=== PATIENT | female | born 1960 | race Caucasian/White ===

== ENCOUNTER 2017-06-18 11:09 | Emergency (ER) | payer OTHER ==
[2017-06-18] MEDS ORDERED: CEFTRIAXONE 1 GM/D5W RTU 1 GM/50 ML RTUPB IV ONE (12:20)
--- NOTE | 2017-06-18 12:21 | ER Document Report ---
HPI - HPI Patient complains to provider of: Wound recheck Onset: Other - 3 days Onset/Duration: Worse Quality of pain: Achy Pain Level: 1 Context: Patient states that she had a mole and tumor removed last week at the [facility] in [place]. Patient states that she has had drainage from the wound and that 1 of the sutures popped. Patient states she has transportation issues and is not able to go back to see the surgeon who performed the procedure. Patient is not currently taking any antibiotics. Patient is still waiting the pathology results after having her procedure. Associated Symptoms: Other - Wound drainage. denies: Fever Exacerbated by: Movement Relieved by: Denies Similar symptoms previously: No Recently seen / treated by doctor: Yes - ROS ROS below otherwise negative: Yes Systems Reviewed and Negative: Yes All other systems reviewed and negative - CONSTITUTIONAL Constitutional: DENIES: Fever - REPRODUCTIVE Reproductive: DENIES: : - DERM Skin Problems: Surgical Wound Past Medical History - General Information source: Patient - Social History Smoking Status: Current Every Day Smoker Chew tobacco use (# tins/day): No Frequency of alcohol use: None Drug Abuse: None Occupation: [employer] Family History: Reviewed & Not Pertinent Patient has suicidal ideation: No Patient has homicidal ideation: No Endocrine Medical History: Reports: Hx Hypothyroidism Renal/ Medical History: Denies: Hx Peritoneal Dialysis Musculoskeltal Medical History: Reports Hx Arthritis Past Surgical History: Reports: Hx Orthopedic Surgery Vertical Provider Document - CONSTITUTIONAL Agree With Documented VS: Yes Exam Limitations: No Limitations General Appearance: WD/WN, No Apparent Distress - INFECTION CONTROL TRAVEL OUTSIDE OF THE [place] IN LAST 30 DAYS: No - HEENT HEENT: Atraumatic, Normocephalic - NECK Neck: Normal Inspection - RESPIRATORY Respiratory: Breath Sounds Normal, No Respiratory Distress O2 Sat by Pulse Oximetry: 98 - CARDIOVASCULAR Cardiovascular: Regular Rate, Regular Rhythm, No Murmur - BACK Back: Abnormal Inspection - Erythema surrounding surgical wound to left flank area - MUSCULOSKELETAL/EXTREMETIES Musculoskeletal/Extremeties: MAEW - NEURO Level of Consciousness: Awake, Alert, Appropriate Motor/Sensory: No Motor Deficit - DERM Integumentary: Warm, Dry Notes: Patient with mild erythema surrounding surgical wound to left flank area. Patient with a running suture that is not completely intact. Patient with purulent drainage draining from wound. Course - Re-evaluation Re-evalutation: 06/18/17 12:[address] Spence, Dr. Spence to bedside for exam. Recommends consultation with patient's surgeon 06/18/17 13:12 Attempted extensively to contact patient's surgeon at the [facility] without success, called and spoke with the local [place] clinic Dr. Christensen who states that she will forward my phone number to the patient's surgeon so that they will call back. 06/18/17 14:07 Was not able to make contact with patient's surgeon, consulted with Dr. Gee who does agree to evaluate patient in the ER. 06/18/17 14:27 Dr. Gee evaluated patient and removed her sutures. Recommends placing patient on pain medication in addition to Bactrim. Will see patient in the office tomorrow for wound recheck and then have her follow-up in the office the following week for additional follow-up. 06/18/17 15:20 Patient's surgeon from the [facility] called, discussed patient's plan of care and physical exam findings. No additional recommendations advised at this time - Vital Signs Vital signs: Temp Pulse Resp BP Pulse Ox 97.6 F 80 16 162/97 H 98 06/18/17 11:18 06/18/17 11:18 06/18/17 11:18 06/18/17 11:18 06/18/17 11:18 - Laboratory Result Diagrams: 06/18/17 12:55 06/18/17 12:55 Laboratory results interpreted by me: 06/18/17 18:43 Labs- Entire Visit 06/18/17 06/18/17 12:55 12:55 WBC 9.4 RBC 4.66 Hgb 12.6 Hct 37.5 MCV 81 MCH 27.0 MCHC 33.5 RDW 14.0 Plt Count 594 H Seg Neutrophils % 73.7 Lymphocytes % 16.6 Monocytes % 6.6 Eosinophils % 2.6 Basophils % 0.5 Absolute Neutrophils 6.9 Absolute Lymphocytes 1.6 Absolute Monocytes 0.6 Absolute Eosinophils 0.2 Absolute Basophils 0.1 Sodium 140.0 Potassium 4.1 Chloride 105 Carbon Dioxide 24 Anion Gap 11 BUN 12 Creatinine 0.65 Est GFR ( Amer) > 60 Est GFR (Non-Af Amer) > 60 Glucose 102 Calcium 9.5 Total Bilirubin 0.4 Direct Bilirubin 0.2 Neonat Total Bilirubin Not Reportable Neonat Direct Bilirubin Not Reportable Neonat Indirect Bili Not Reportable AST 18 ALT 32 Alkaline Phosphatase 134 H Total Protein 7.0 Albumin 3.9 Discharge - Discharge Clinical Impression: Wound, surgical, infected Qualifiers: Encounter type: initial encounter Qualified Code(s): T81.4XXA - Infection following a procedure, initial encounter Condition: Stable Disposition: HOME, SELF-CARE Instructions: Oral Narcotic Medication ([facility]), Trimethoprim-Sulfa ([facility]), Wound Infection ([facility]) Additional Instructions: Return immediately for any new or worsening symptoms Followup with your primary care provider, call tomorrow to make a followup appointment Follow-up with the surgical clinic tomorrow for a dressing change Follow-up with the surgical clinic next week for recheck Perform daily wet-to-dry dressings Prescriptions: Oxycodone HCl/Acetaminophen [Percocet 5-325 mg Tablet] 1 tab PO ASDIR PRN #15 tablet PRN Reason: Sulfamethoxazole/Trimethoprim [Bactrim Ds Tablet] 1 each PO BID #20 tablet Referrals: ALIDA GEE MD [ACTIVE STAFF] - Follow up tomorrow
[2017-06-18] MEDS ORDERED: CEFTRIAXONE INJ 1000 MG VIAL IV ONE (12:42)
[2017-06-18 13:06] LABS: ABSOLUTE BASOPHILS # (AUTO) 0.1 10^3/uL (0.0-0.2); ABSOLUTE EOSINOPHILS # (AUTO) 0.2 10^3/uL (0.0-0.6); ABSOLUTE LYMPHOCYTES (AUTO) 1.6 10^3/uL (0.5-4.7); ABSOLUTE MONOCYTES (AUTO) 0.6 10^3/uL (0.1-1.4); ABSOLUTE NEUT (AUTO) 6.9 10^3/uL (1.7-8.2); BASOPHILS % (AUTO) 0.5 % (0-2); EOSINOPHILS % (AUTO) 2.6 % (0-6); HEMATOCRIT 37.5 % (36.0-47.0); HEMOGLOBIN 12.6 g/dL (12.0-15.5); LYMPHOCYTES % (AUTO) 16.6 % (13-45); MEAN CORPUSCULAR HGB CONC 33.5 g/dL (32.0-36.0); MEAN CORPUSCULAR VOLUME 81 fl (80-97); MONOCYTES % (AUTO) 6.6 % (3-13); PLATELET COUNT 594 10^3/uL (150-450); RED BLOOD COUNT 4.66 10^6/uL (3.72-5.28); SEGMENTED NEUTROPHILS % (AUTO) 73.7 % (42-78); TOTAL CELLS COUNTED % (AUTO) 100 %; WHITE BLOOD COUNT 9.4 10^3/uL (4.0-10.5)
[2017-06-18 13:29] LABS: ALANINE AMINOTRANSFERASE 32 U/L (9-52); ALBUMIN 3.9 g/dL (3.5-5.0); ALKALINE PHOSPHATASE 134 U/L (38-126); ANION GAP 11 (5-19); ASPARTATE AMINO TRANSFERASE 18 U/L (14-36); BILIRUBIN,DIRECT 0.2 mg/dL (0.0-0.4); BILIRUBIN,TOTAL 0.4 mg/dL (0.2-1.3); BLOOD UREA NITROGEN 12 mg/dL (7-20); CALCIUM 9.5 mg/dL (8.4-10.2); CARBON DIOXIDE 24 mmol/L (22-30); CHLORIDE 105 mmol/L (98-107); GLUCOSE 102 mg/dL (75-110); POTASSIUM 4.1 mmol/L (3.6-5.0)
[2017-06-18] MEDS ORDERED: SULFAMETHOXAZOLE/TRIMETHOPRIM 800-160 MG TABLET PO ONE (14:29)
[2017-06-18 14:40] VITALS: BP 150/90
--- NOTE | 2017-06-18 17:08 | PDOC CONSULTATION ---
Consultation Consult Date: 06/18/17 Consult reason:: Evaluate left flank wound History of Present Illness Patient complains of: Left flank pain and drainage History of Present Illness: MELI MCQUEEN is a 57 year old female who underwent a wide local excision of a suspicious skin lesion on her left flank chest over a week ago. Patient noticed several days later with increasing pain and redness and purulent drainage. With the persistence of her symptoms and worsening of her pain she was seen at an outpatient clinic and subsequently referred to the ER. She has not seen her surgeon since the surgery. The surgery was done in [place]. The final diagnoses is still not known to her. Nor known to the [place] doctor who saw her today. She denies any fever and denies any history of diabetes. No history of MRSA Past Surgical History Past Surgical History: Reports: Orthopedic Surgery Social History Smoking Status: Current Every Day Smoker Family History Family History: Reviewed & Not Pertinent Parental Family History Reviewed: No Children Family History Reviewed: No Sibling(s) Family History Reviewed.: No Medication/Allergy Home Medications: Prednisone [Deltasone 10 mg Tablet] 10 mg PO ASDIR PRN #21 tablet 04/11/14 Prednisone [Deltasone 20 mg Tablet] 3 tab PO DAILY 5 Days tablet 02/08/15 Oxycodone HCl/Acetaminophen [Percocet 5-325 mg Tablet] 1 tab PO ASDIR PRN #15 tablet 06/18/17 Sulfamethoxazole/Trimethoprim [Bactrim Ds Tablet] 1 each PO BID #20 tablet 06/18 Allergies/Adverse Reactions: No Known Allergies Allergy (Verified 06/18/17 12:11) Physical Exam Vital Signs: Temp Pulse Resp BP Pulse Ox 98 F 82 18 150/90 H 98 06/18/17 14:30 06/18/17 14:30 06/18/17 14:30 06/18/17 14:30 06/18/17 14:44 Intake & Output 06/17/17 06/18/17 06/19/17 06:59 06:59 06:59 Weight 112.4 kg General appearance: PRESENT: no acute distress, cooperative Eye exam: PRESENT: conjunctiva pink Neck exam: PRESENT: other - Supple with no tenderness Respiratory exam: PRESENT: clear to auscultation birsa Cardiovascular exam: PRESENT: RRR GI/Abdominal exam: PRESENT: other - Soft nondistended nontender to palpation. Neurological exam: PRESENT: alert, awake Psychiatric exam: PRESENT: appropriate affect Skin exam: PRESENT: other - Left flank with a approximately a centimeter wound that has dehisced with about 1-2 cm of surrounding erythema with purulent drainage. Sutures are present but the wound has dehisced almost 100%. Results Laboratory Results: 06/18/17 12:55 06/18/17 12:55 06/18/17 06/18/17 12:55 12:55 WBC 9.4 RBC 4.66 Hgb 12.6 Hct 37.5 MCV 81 MCH 27.0 MCHC 33.5 RDW 14.0 Plt Count 594 H Seg Neutrophils % 73.7 Lymphocytes % 16.6 Monocytes % 6.6 Eosinophils % 2.6 Basophils % 0.5 Absolute Neutrophils 6.9 Absolute Lymphocytes 1.6 Absolute Monocytes 0.6 Absolute Eosinophils 0.2 Absolute Basophils 0.1 Sodium 140.0 Potassium 4.1 Chloride 105 Carbon Dioxide 24 Anion Gap 11 BUN 12 Creatinine 0.65 Est GFR ( Amer) > 60 Est GFR (Non-Af Amer) > 60 Glucose 102 Calcium 9.5 Total Bilirubin 0.4 AST 18 ALT 32 Alkaline Phosphatase 134 H Total Protein 7.0 Albumin 3.9 Assessment & Plan - Diagnosis (1) Wound, surgical, infected Qualifiers: Encounter type: initial encounter Qualified Code(s): T81.4XXA - Infection following a procedure, initial encounter Is this a current diagnosis for this admission?: Yes Plan: The sutures were removed and the wound was gently pried completely open digitally allowing drainage of pus. Loculations were broken up digitally. And the wound was packed with a wet-to-dry gauze. I think she can be managed as an outpatient. She does not appear septic. She has a wound infection. Allowing adequate drainage is the first big step in her recovery. I will place her on Septra. Will have her follow-up at my office for a nurse visit to educate her more on the dressing change. She will follow-up at our office next week to check up on her progress and check up on her cultures as well. She will need follow-up with her surgeon eventually whenever that surgeon is available. [facility]. If she has any worsening redness or fever or worsening symptoms she is to return immediately.
== END 2017-06-18 14:50 | disposition home or self-care (01) ==
LOC: ER 11:09
DX: T81.4XXA Infection following a procedure, initial encounter (principal); Y83.8 Other surgical procedures as the cause of abnormal reaction of the patient, or of later complication, without mention of misadventure at the time of the procedure; Z48.02 Encounter for removal of sutures
CPT/HCPCS: 99284; 96365; 36415; 87040; 87070; 87205; 85025; 87075; 87077; 80053; 87186; J0696

== ENCOUNTER → 2017-07-07 | Outpatient (CLI) | payer OTHER ==
--- NOTE | 2017-07-09 09:07 | RADIOLOGY REPORT (SQ) ---
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 TECHNIQUE: Blood glucose level was verified. Above dose of FDG was injected intravenously. 2-D seg mented attenuation correction images were obtained through the entire body. Noncontrast CT images we re obtained for attenuation correction and fusion with emission images. CT images were performed wit hout oral or intravenous contrast and are not sensitive for parenchymal lesions. A series of overlap ping emission PET images were obtained. Images reviewed and manipulated at independent work station by the radiologist. Images stored on PACS. LIMITATIONS: None. FINDINGS: HEAD AND NECK: A non enlarged right pharyngeal tonsil with SUV of 6.2 is present. There i s calcification in the tonsil, question chronic inflammation. CHEST: No abnormal increased metabolic activity over the chest ABDOMEN AND PELVIS: Over the left flank skin, a 3.3 x 1 cm area of skin thickening is present on axia l image 134. This has SUV of 2.2. There is diffuse increased uptake throughout the pancreas, with a 4.6 x 2.6 cm area of pancreatic yoselin l enlargement on axial image 40 with SUV of 6.0. Findings likely represent chronic pancreatitis. Kn own malignant mass of the pancreas tail could not entirely be excluded A 10 cm long segment of distal sigmoid colon with diverticuli has SUV of 10.6. This likely represent s diverticulitis. No abscess identified. LOWER EXTREMITIES: No areas of abnormal metabolic activity in the soft tissues of the lower extremiti es. BONES: There is diffuse bone marrow activity with SUV of 3 to 4, throughout the thoracic spine, lumba r spine and bony pelvis. ADDITIONAL CT FINDINGS: Calcified gallstones OTHER: Liver SUV 2.2. Blood pool SUV 2.2. IMPRESSION: Left flank skin activity in the area of wound healing with SUV of 2.2. Increased uptake in a nonenlarged right pharyngeal tonsil with calcifications. This may represent ch ronic inflammation. Malignancy could not entirely be excluded Diffuse pancreatic activity with focal increased uptake at the pancreatic tail, likely from chronic p ancreatitis. Malignancy could not entirely be excluded Distal sigmoid colon activity in an area with multiple diverticuli likely from diverticulitis. Debbi frazier could not entirely be excluded. TECHNICAL DOCUMENTATION: JOB ID: [id number] [employer]- All Rights Reserved Reading location - IP/workstation name: [email or web address]
== END ==
LOC: RAD 20:00
PROVIDERS: ATTEND Internal Medicine
DX: C43.59 Malignant melanoma of other part of trunk (principal)
CPT/HCPCS: 78816; A9552

== ENCOUNTER → 2017-11-10 | Outpatient (CLI) | payer OTHER ==
--- NOTE | 2017-11-11 08:40 | RADIOLOGY REPORT (SQ) ---
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 RADIONUCLIDE AND DOSE: 10.0 mCi F18 FDG The route of agent administration: Intravenous FASTING BLOOD SUGAR: 96 mg/dl CONTRAST TYPE AND DOSE: No CT contrast given. TECHNIQUE: Blood glucose level was verified. Above dose of FDG was injected intravenously. 2-D seg mented attenuation correction images were obtained through the entire body. Noncontrast CT images we re obtained for attenuation correction and fusion with emission images. CT images were performed wit hout oral or intravenous contrast and are not sensitive for parenchymal lesions. A series of overlap ping emission PET images were obtained. Images reviewed and manipulated at independent work station by the radiologist. Images stored on PACS. LIMITATIONS: None. FINDINGS: HEAD AND NECK: Again seen is a hypermetabolic right pharyngeal lymph node with a few coars e calcifications. This measures 10 mm with mean SUV 9.13. Prior value 6.2. No other areas of abnor mal metabolic activity in the soft tissues of the head and neck. CHEST: There is a 2 cm hypermetabolic lymph node in the left axilla. There is a central biopsy clip. Mean SUV 8.71. No other significant axillary adenopathy. Previously seen activity involving the s urgical site in the skin of the left flank has resolved. No other areas of abnormal metabolic activi ty in the chest. ABDOMEN AND PELVIS: Previously seen increased uptake in the pancreas has now resolved. Again seen is prominent increased activity in the sigmoid colon with mean SUV value 19.09. Previous value 10.6. No other areas of abnormal metabolic activity in the abdomen or pelvis. Expected physiologic activit y is present in the genitourinary system and bowel. LOWER EXTREMITIES: No areas of abnormal metabolic activity in the soft tissues of the lower extremiti es. BONES: Again seen is diffuse increased bone marrow activity throughout the spine as well is in the [place] pelvis, proximal right and left humerus, and proximal right and left femur. Mean SUV values range from roughly 3.[address] FINDINGS: Gallstones. No additional significant findings on the noncontrast CT images. OTHER: No other significant findings. Background blood pool activity mean SUV 2.31. Background live r activity mean SUV 2.5. IMPRESSION: 1. NEW HYPERMETABOLIC LEFT AXILLARY LYMPH NODE WITH ASSOCIATED BIOPSY CLIP, CONSISTENT WITH METASTASI S. NO OTHER SIGNIFICANT AXILLARY ADENOPATHY. PREVIOUSLY SEEN ACTIVITY AT THE SURGICAL SITE IN THE L EFT FLANK HAS RESOLVED. 2. AGAIN SEEN IS INCREASED UPTAKE IN THE RIGHT PHARYNGEAL TONSIL WITH A FEW ASSOCIATED COARSE CALCIFI CATIONS. THIS COULD BE DUE TO INFLAMMATORY PROCESS. MALIGNANCY CANNOT BE EXCLUDED BASED ON THESE FI NDINGS. 3. MARKEDLY INCREASED ACTIVITY IN THE SIGMOID COLON IS AGAIN PRESENT. NO ASSOCIATED FINDINGS ON NONC ONTRAST CT IMAGES. THIS COULD BE DUE TO CHRONIC INFLAMMATION. MALIGNANCY CANNOT BE EXCLUDED BASED O N THESE FINDINGS. UNCLEAR FROM THE PROVIDED CLINIC NOTES IF THE PATIENT HAS HAD RECENT COLONOSCOPY. 4. PREVIOUSLY SEEN INCREASED ACTIVITY IN THE PANCREAS HAS RESOLVED. 5. AGAIN SEEN IS DIFFUSE INCREASED BONE MARROW ACTIVITY THROUGHOUT THE CENTRAL SKELETON DESCRIBED. NO ASSOCIATED FINDINGS ON CT IMAGES. THIS COULD REPRESENT ACTIVE RED MARROW. TECHNICAL DOCUMENTATION: JOB ID: [id number] [employer]- All Rights Reserved Reading location - IP/workstation name: [email or web address]
== END ==
LOC: RAD 16:01
PROVIDERS: ATTEND Internal Medicine
DX: C43.59 Malignant melanoma of other part of trunk (principal); C77.3 Secondary and unspecified malignant neoplasm of axilla and upper limb lymph nodes
CPT/HCPCS: 78816; A9552

== ENCOUNTER 2017-12-23 14:16 | Emergency (ER) | payer OTHER ==
[2017-12-23] MEDS ORDERED: ONDANSETRON 4 MG TAB.RAPDIS PO ONE (15:09)
--- NOTE | 2017-12-23 15:11 | ER Document Report ---
ED Medical Screen (RME) - General Chief Complaint: Vomiting Stated Complaint: VOMITING Time Seen by Provider: 12/23/17 15:05 Mode of Arrival: Ambulatory Information source: Patient Notes: 57 yo hypothyroid, anemia, ulcerative colitis, carpel tunnel syndrome female with vomiting since thursday associated with nausea. "I'm so thirsty", neighbor brought her. Always has loose stool due to colitis- always has blood and mucous in stool. Pain in low abdomen for this week. no fever or chills. TRAVEL OUTSIDE OF THE [place] IN LAST 30 DAYS: No - Related Data Allergies/Adverse Reactions: No Known Allergies Allergy (Verified 12/23/17 14:17) Past Medical History Endocrine Medical History: Reports: Hx Hypothyroidism Renal/ Medical History: Denies: Hx Peritoneal Dialysis Musculoskeltal Medical History: Reports Hx Arthritis Past Surgical History: Reports: Hx Orthopedic Surgery Physical Exam - Vital signs Vitals: Temp Pulse Resp BP Pulse Ox 97.4 F 118 H 22 H 115/76 99 12/23/17 14:28 12/23/17 14:28 12/23/17 14:28 12/23/17 14:28 12/23/17 14:28 Course - Vital Signs Vital signs: Temp Pulse Resp BP Pulse Ox 97.4 F 118 H 22 H 115/76 99 12/23/17 14:28 12/23/17 14:28 12/23/17 14:28 12/23/17 14:28 12/23/17 14:28 Doctor's Discharge - Discharge Referrals: CLAUDETTE ZEE MD [Primary Care Provider] - Follow up as needed
[2017-12-23] MEDS ORDERED: RINGERS SOLUTION,LACTATED 2,000 ML IV PRN (15:12)
[2017-12-23 15:53] LABS: ABSOLUTE BASOPHILS # (AUTO) 0.1 10^3/uL (0.0-0.2); ABSOLUTE EOSINOPHILS # (AUTO) 0.7 10^3/uL (0.0-0.6); ABSOLUTE LYMPHOCYTES (AUTO) 2.3 10^3/uL (0.5-4.7); ABSOLUTE MONOCYTES (AUTO) 1.7 10^3/uL (0.1-1.4); ABSOLUTE NEUT (AUTO) 11.5 10^3/uL (1.7-8.2); BASOPHILS % (AUTO) 0.4 % (0-2); EOSINOPHILS % (AUTO) 4.1 % (0-6); HEMATOCRIT 32.2 % (36.0-47.0); HEMOGLOBIN 10.6 g/dL (12.0-15.5); LYMPHOCYTES % (AUTO) 13.9 % (13-45); MEAN CORPUSCULAR HEMOGLOBIN 24.4 pg (27.0-33.4); MEAN CORPUSCULAR HGB CONC 32.9 g/dL (32.0-36.0); MEAN CORPUSCULAR VOLUME 74 fl (80-97); MONOCYTES % (AUTO) 10.4 % (3-13); PLATELET COUNT 990 10^3/uL (150-450); RED BLOOD COUNT 4.33 10^6/uL (3.72-5.28); RED CELL DISTRIBUTION WIDTH 16.9 % (11.5-14.0); SEGMENTED NEUTROPHILS % (AUTO) 71.2 % (42-78); TOTAL CELLS COUNTED % (AUTO) 100 %; WHITE BLOOD COUNT 16.2 10^3/uL (4.0-10.5)
[2017-12-23 16:03] LABS: AMORPHOUS SEDIMENT,URINE TRACE /HPF; APPEARANCE,URINE CLOUDY; BILIRUBIN,URINE NEGATIVE (NEGATIVE); COLOR,URINE YELLOW; GLUCOSE, URINE NEGATIVE (NEGATIVE); KETONES,URINE 20 mg/dL (NEGATIVE); LEUKOCYTE ESTERASE,URINE TRACE (NEGATIVE); NITRITE,URINE NEGATIVE (NEGATIVE); PROTEIN,URINE 30 mg/dL (NEGATIVE); URINE SPECIFIC GRAVITY 1.019; UROBILINOGEN,URINE NEGATIVE mg/dL (<2.0)
[2017-12-23 16:07] LABS: ALANINE AMINOTRANSFERASE 18 U/L (9-52); ALBUMIN 3.1 g/dL (3.5-5.0); ALKALINE PHOSPHATASE 103 U/L (38-126); ANION GAP 12 (5-19); ASPARTATE AMINO TRANSFERASE 13 U/L (14-36); BILIRUBIN,DIRECT 0.3 mg/dL (0.0-0.4); BILIRUBIN,TOTAL 0.3 mg/dL (0.2-1.3); BLOOD UREA NITROGEN 13 mg/dL (7-20); CALCIUM 8.9 mg/dL (8.4-10.2); CARBON DIOXIDE 22 mmol/L (22-30); CHLORIDE 104 mmol/L (98-107); GLUCOSE 136 mg/dL (75-110); LIPASE 222.4 U/L (23-300); TOTAL PROTEIN 6.4 g/dL (6.3-8.2)
[2017-12-23 16:08] LABS: URINE AMPHETAMINES SCREEN NEGATIVE; URINE BARBITURATES SCREEN NEGATIVE; URINE BENZODIAZEPINES SCREEN NEGATIVE; URINE COCAINE SCREEN NEGATIVE; URINE MARIJUANA (THC) SCREEN NEGATIVE; URINE METHADONE SCREEN NEGATIVE; URINE PHENCYCLIDINE SCREEN NEGATIVE
--- NOTE | 2017-12-23 16:19 | ER Document Report ---
ED General - General Chief Complaint: Vomiting Stated Complaint: VOMITING Time Seen by Provider: 12/23/17 15:05 Mode of Arrival: Ambulatory TRAVEL OUTSIDE OF THE [place] IN LAST 30 DAYS: No - HPI Notes: Patient is a 57-year-old female with a history of colitis, chronic recurrent abdominal pain, melanoma, chronic bloody/mucousy diarrhea, anemia, hypothyroidism who presents to the ED complaining of nausea, vomiting, abdominal cramping over the last 3 days. Patient states that she has noticed more soreness and pain to the left lower abdomen and occasionally to the right upper abdomen. Patient states that she believes most of her abdominal pain is soreness from vomiting. Patient states that she has had these pains before. She has not been able to eat or drink because of the nausea and vomiting. She is urinating normally. She has not noticed any vaginal discharge, odor, or bleeding. Patient states that she is not currently being treated for her melanoma nor her colitis and she is concerned about side effects of medicines. - Related Data Allergies/Adverse Reactions: No Known Allergies Allergy (Verified 12/23/17 14:17) Past Medical History - General Information source: Patient - Social History Smoking Status: Unknown if Ever Smoked Family History: Reviewed & Not Pertinent Patient has suicidal ideation: No Patient has homicidal ideation: No Endocrine Medical History: Reports: Hx Hypothyroidism Renal/ Medical History: Denies: Hx Peritoneal Dialysis Musculoskeletal Medical History: Reports Hx Arthritis Past Surgical History: Reports: Hx Orthopedic Surgery Review of Systems - Review of Systems -: Yes All other systems reviewed and negative Physical Exam - Vital signs Vitals: Temp Pulse Resp BP Pulse Ox 97.4 F 118 H 22 H 115/76 99 12/23/17 14:28 12/23/17 14:28 12/23/17 14:28 12/23/17 14:28 12/23/17 14:28 - Notes Notes: PHYSICAL EXAMINATION: GENERAL: Well-appearing, well-nourished and in no acute distress. Vitals: HR 90 during exam HEAD: Atraumatic, normocephalic. EYES: Pupils equal round and reactive to light, extraocular movements intact, sclera anicteric, conjunctiva are normal. ENT: Nares patent and without discharge. oropharynx clear without exudates. No tonsilar hypertrophy or erythema. Moist mucous membranes. NECK: Normal range of motion, supple without lymphadenopathy LUNGS: Breath sounds clear to auscultation bilaterally and equal. No wheezes rales or rhonchi. HEART: Regular rate and rhythm without murmurs, rubs, gallops. ABDOMEN: Soft, nondistended abdomen. No guarding, no rebound. No masses appreciated. Normal bowel sounds present. No CVA tenderness bilaterally. + mild generalized tenderness. No tenderness at mcburney. mondragon neg. Musculoskeletal: FROM to passive/active. Strength 5+/5. Extremities: No cyanosis, clubbing, or edema b/l. Peripheral pulses 2+. Capillary refill less than 3 seconds. NEUROLOGICAL: Normal speech, normal gait. PSYCH: Normal mood, normal affect. SKIN: Warm, Dry, normal turgor, no rashes or lesions noted. Course - Re-evaluation Re-evalutation: 12/23/17 17:48 Patient is an afebrile, well-hydrated, 57-year-old female who presents to the ED with abdominal pain, suspect acute exacerbation of her colitis. Vitals are acceptable without any significant tachycardia, tachypnea, or hypoxia. PE is otherwise unremarkable. Patient's abdomen is currently soft and nontender. Patient has been given Zofran, fluids, as well as Reglan. Patient is tolerating p.o. without any difficulties at this time and is nontoxic- appearing. She has not had any episodes of emesis throughout her stay. CBC does show an elevated white count with left shift as well as thrombocytosis which she has had before. I suspect that the elevated white blood cell count could be due to her vomiting and/or infection. CMP showed hypokalemia which was supplemented with potassium chloride. Lipase was unremarkable. Urinalysis was grossly unremarkable, urine culture is pending. CT of the abdomen was unremarkable. No further labs or imaging warranted at this time based on H&P. Low suspicion/risk for acute appendicitis, bowel obstruction, acute cholecystitis, acute cholangitis, perforated diverticulitis, incarcerated hernia , pancreatitis, perforated ulcer, peritonitis, sepsis, or other systemic emergent condition at this time. Patient is aware that her condition can change from initial presentation and she needs to monitor symptoms closely and seek medical attention if any acute changes. Rx for cipro/flagyl/potassium chloride/zofran. Conservative measures otherwise for symptoms. Recheck with PCM/GI in 5-7 days. Return to the ED with any worsening/concerning symptoms otherwise as reviewed in discharge. Patient is in agreement. Case reviewed with Dr. Irene who is in agreement with dispo/plan. - Vital Signs Vital signs: Temp Pulse Resp BP Pulse Ox 97.4 F 118 H 22 H 115/76 99 12/23/17 14:28 12/23/17 14:28 12/23/17 14:28 12/23/17 14:28 12/23/17 14:28 - Laboratory Result Diagrams: 12/23/17 15:25 12/23/17 15:25 Laboratory results interpreted by me: 12/23/17 12/23/17 12/23/17 15:25 15:25 15:25 WBC 16.2 H Hgb 10.6 L Hct 32.2 L MCV 74 L MCH 24.4 L RDW 16.9 H Plt Count 990 H Absolute Neutrophils 11.5 H Absolute Monocytes 1.7 H Absolute Eosinophils 0.7 H Potassium 3.0 L* Est GFR (Non-Af Amer) 58 L Glucose 136 H AST 13 L Albumin 3.1 L Urine Protein 30 H Urine Ketones 20 H Ur Leukocyte Esterase TRACE H Discharge - Discharge Clinical Impression: Colitis, Hypokalemia Abdominal pain Qualifiers: Abdominal location: generalized Qualified Code(s): R10.84 - Generalized abdominal pain Condition: Stable Disposition: HOME, SELF-CARE Instructions: Abdominal Pain ([facility]), Antinausea Medication ([facility]) Additional Instructions: Maintain adequate fluid and food intake [place] diet ([employer] Bananas, rice, apples, toast, etc Zofran as needed tylenol if needed Monitor for any worsening symptoms Make sure you are staying hydrated enough to urinate and have normal BM's Recheck with your PCM/Gastroenterology in 5-7 days* Return to the ED with any worsening symptoms and/or development of fever, headache, chest pain, palpitations, syncope, shortness of breath, trouble breathing, abdominal pain, n/v/d, blood in stool/urine, weakness, or other worsening symptoms that are concerning to you. Prescriptions: Ciprofloxacin HCl [Cipro 500 mg Tablet] 500 mg PO BID #20 tablet Metronidazole [Flagyl] 500 mg PO TID #21 tablet Potassium Chloride 10 meq PO DAILY #5 tablet.er Promethazine HCl [Phenergan 25 mg Tablet] 25 mg PO BID PRN #8 tablet PRN Reason: Referrals: CLAUDETTE ZEE MD [Primary Care Provider] - Follow up as needed
[2017-12-23] MEDS ORDERED: METOCLOPRAMIDE HCL INJ/PF 10 MG/2 ML SDV IV ONE (17:15)
--- NOTE | 2017-12-23 17:24 | RADIOLOGY REPORT (SQ) ---
EXAM DESCRIPTION: CT ABD/PELVIS WITH IV ONLY COMPLETED DATE/TIME: 12/23/2017 5:10 pm REASON FOR STUDY: abd pain, h/o colitis COMPARISON: None. TECHNIQUE: CT scan of the abdomen and pelvis performed using helical scanning technique with dynamic intravenous contrast injection. No oral contrast. Images reviewed with lung, soft tissue, and bone windows. Reconstructed coronal and sagittal MPR images reviewed. Delayed images for evaluation of the urinary system also acquired. All images stored on PACS. All CT scanners at this facility use dose modulation, iterative reconstruction, and/or weight based d osing when appropriate to reduce radiation dose to as low as reasonably achievable (ALARA). [facility]: Dose Right [facility]: CareDose [facility]: Dose Right [facility]: Teradose 4D [facility]: EverTrue CONTRAST TYPE AND DOSE: contrast/concentration: Isovue 350.00 mg/ml; Total Contrast Delivered: 88.0 ml; Total Saline Delivered: 40.0 ml RENAL FUNCTION: Creatinine 0.99 RADIATION DOSE: CT Rad equipment meets quality standard of care and radiation dose reduction techniq ues were employed. CTDIvol: 14.5 - 18.1 mGy. DLP: 1844 mGy-cm.. LIMITATIONS: None. FINDINGS: LOWER CHEST: No significant findings. No nodules or infiltrates. LIVER: Normal size. No masses. No dilated ducts. SPLEEN: Normal size. No focal lesions. PANCREAS: No masses. No significant calcifications. No adjacent inflammation or peripancreatic fluid collections. Pancreatic duct not dilated. GALLBLADDER: Multiple gallstones are identified. No inflammatory changes to suggest cholecystitis. ADRENAL GLANDS: No significant masses or asymmetry. RIGHT KIDNEY AND URETER: No solid masses. No significant calcifications. No hydronephrosis or hyd roureter. 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 LEFT KIDNEY AND URETER: No solid masses. No significant calcifications. No hydronephrosis or hydr oureter. 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 AORTA AND VESSELS: No aneurysm. No dissection. Renal arteries, SMA, celiac without stenosis. RETROPERITONEUM: No retroperitoneal adenopathy, hemorrhage or masses. BOWEL AND PERITONEAL CAVITY: No masses or inflammatory changes. No free fluid or peritoneal masses. APPENDIX: Normal. PELVIS: No mass. No free fluid. Normal bladder. Uterine calcification is identified presumably repr esenting a uterine fibroid. ABDOMINAL WALL: No masses. Small umbilical hernia is identified containing fat. BONES: No significant or acute findings. OTHER: No other significant finding. IMPRESSION: NO SIGNIFICANT OR ACUTE FINDING IN THE ABDOMEN OR PELVIS ON CT SCAN WITH IV CONTRAST. TECHNICAL DOCUMENTATION: JOB ID: [id number] Quality ID # [id number]: Final reports with documentation of one or more dose reduction techniques (e.g., Au tomated exposure control, adjustment of the mA and/or kV according to patient size, use of iterative reconstruction technique) 2010 [employer]- All Rights Reserved Reading location - IP/workstation name: [email or web address]
[2017-12-23] MEDS ORDERED: POTASSIUM CHLORIDE 10 MEQ CAPSULE.ER PO ONE (17:43)
[2017-12-23] MEDS ORDERED: DEXAMETHASONE SOD PHOS INJ 10 MG/1 ML VIAL IV ONE (17:52)
[2017-12-23] MEDS ORDERED: PROMETHAZINE HCL 25 MG SUPP (4 SUPP/ER DISP) PR ONE (17:58)
[2017-12-23 19:07] VITALS: BP 112/68
== END 2017-12-23 19:06 | disposition home or self-care (01) ==
LOC: ER 14:16
DX: K52.9 Noninfective gastroenteritis and colitis, unspecified (principal); E87.6 Hypokalemia; R10.84 Generalized abdominal pain
CPT/HCPCS: 99284; 96361; 96374; 96375; 36415; 87086; 83690; 85025; 80053; 81001; 80307; 74177; S0119; J3490; J2765; J1100

== ENCOUNTER 2018-01-01 18:58 | Inpatient (IN) | payer OTHER ==
[2018-01-01] MEDS ORDERED: NORMAL SALINE 250 ML IV PRN (19:34)
--- NOTE | 2018-01-01 19:38 | ER Document Report ---
ED General - General Chief Complaint: Rectal Bleeding Stated Complaint: BLOODY STOOL, VOMITING Time Seen by Provider: 01/01/18 19:34 Cannot obtain history due to: Unstable vital signs Notes: Patient is a 57-year-old female with a past medical history of ulcerative colitis who presents with rectal bleeding. History is limited as the patient is quite lethargic, initial assessment as she had just syncopized. TRAVEL OUTSIDE OF THE [place] IN LAST 30 DAYS: No - Related Data Allergies/Adverse Reactions: No Known Allergies Allergy (Verified 01/01/18 18:59) Past Medical History - General Information source: Friend Cannot obtain history due to: Unstable vital signs - Social History Smoking Status: Never Smoker Frequency of alcohol use: None Drug Abuse: None Lives with: Alone Family History: Reviewed & Not Pertinent Patient has suicidal ideation: No Patient has homicidal ideation: No Endocrine Medical History: Reports: Hx Hypothyroidism Renal/ Medical History: Denies: Hx Peritoneal Dialysis Musculoskeletal Medical History: Reports Hx Arthritis Past Surgical History: Reports: Hx Orthopedic Surgery Review of Systems - Review of Systems Notes: Constitutional: Negative for fever. HENT: Negative for sore throat. Eyes: Negative for visual changes. Cardiovascular: Positive for syncope Respiratory: Negative for shortness of breath. Gastrointestinal: Positive for rectal bleeding Genitourinary: Negative for dysuria. Musculoskeletal: Negative for back pain. Skin: Negative for rash. Neurological: Negative for headaches, weakness or numbness. 10 point ROS negative except as marked above and in HPI. Physical Exam - Vital signs Vitals: Pulse Resp BP Pulse Ox 124 H 20 96/71 L 100 01/01/18 19:04 01/01/18 19:04 01/01/18 19:04 01/01/18 19:04 Interpretation: Hypotensive, Tachycardic Notes: PHYSICAL EXAMINATION: GENERAL: Pale, diaphoretic, ill in appearance HEAD: Atraumatic, normocephalic. EYES: Pupils equal round and reactive to light, extraocular movements intact, sclera anicteric, conjunctiva are normal. ENT: nares patent, oropharynx clear without exudates. Dry mucous membranes. NECK: Normal range of motion, supple without lymphadenopathy LUNGS: Breath sounds clear to auscultation bilaterally and equal. No wheezes rales or rhonchi. HEART: Regular tachycardia without murmurs ABDOMEN: Soft, nontender, normoactive bowel sounds. No guarding, no rebound. No masses appreciated. Rectal: Bright red blood on digital rectal exam without masses or evidence of anal fissures or tears EXTREMITIES: no pitting or edema. No cyanosis. NEUROLOGICAL: No focal neurological deficits. Moves all extremities spontaneously. PSYCH: Lethargic, does answer questions correctly SKIN: Cool, pale, diaphoretic Course - Re-evaluation Re-evalutation: 01/01/18 19:35 I was called to this patient's room as apparently she syncopized in the wheelchair when reading rolled back to the bathroom. In triage patient was noted to be tachycardic and hypotensive. Has apparently had bright rectal bleeding for the past 2 weeks. Rectal examination shows gross red blood. She appears pale, diaphoretic, somewhat lethargic but does answer all orientation questions correctly. Anticipate that the patient is having a large volume GI bleed over the course of the last 2 weeks likely related to her underlying ulcerative colitis. The patient has been typed and screened, 2 units of packed red blood cells have been ordered given her hypotension and syncope. Labs are pending. The patient is in guarded condition, will require frequent reassessments. 01/01/18 20:17 Patient's blood count has effectively unchanged. Withhold transfusion. Blood pressure is normalizing with a liter of lactated Ringer's, currently 108 and 76. Heart rate is also improved to 79. She also clinically appears much improved. Continue to monitor closely and reassess at regular intervals. 01/01/18 22:07 Patient continues to appear clinically much improved. Vitals remain normalized. Will ambulate the patient if she does this well and has tolerated oral intake will be okay for discharge. I went to the bedside and explained to the patient that I am very concerned that she is refusing treatment for both her ulcerative colitis and melanoma. Patient has persistent thrombocytosis, persistent bloody diarrhea and regular nausea and vomiting which I believe contributed to her presentation today. 01/02/18 01:01 Patient's repeat CBC does show mild decrease from 10.7-9.7. Patient continues to be lightheaded, complain of dizziness any time to get up to ambulate her. I suspect that some of the CBC changes likely hemodilution from receiving 2 L of fluid as her platelet count is also decreased. Will request hospital observation. Will also give a dose of steroids. - Vital Signs Vital signs: Temp Pulse Resp BP Pulse Ox 97.5 F 124 H 16 112/77 98 01/01/18 20:03 01/01/18 19:04 01/02/18 01:30 01/02/18 01:30 01/02/18 01:30 - Laboratory Result Diagrams: 01/02/18 00:40 01/01/18 19:31 Laboratory results interpreted by me: 01/01/18 01/01/18 01/02/18 19:31 19:31 00:40 WBC 15.9 H 16.8 H Hgb 10.7 L 9.7 L Hct 32.5 L 29.6 L MCV 73 L 73 L MCH 23.8 L 24.0 L RDW 17.4 H 17.0 H Plt Count 1003 H* 807 H Absolute Neutrophils 11.7 H Absolute Monocytes 1.5 H Sodium 132.2 L Potassium 3.1 L Glucose 164 H Total Protein 6.0 L Albumin 2.5 L Critical Care Note - Critical Care Note Total time excluding time spent on procedures (mins): 40 Comments: Critical care time spent obtaining history from patient or surrogate, discussions with consultants, development of treatment plan with patient or surrogate, evaluation of patient's response to treatment, examination of patient , ordering and performing treatments and interventions, ordering and review of laboratory studies, re-evaluation of patient's condition, ordering and review of radiographic studies and review of old charts Discharge - Discharge Clinical Impression: Ulcerative colitis Qualifiers: Ulcerative colitis location: unspecified ulcerative colitis location Digestive disease complication type: with rectal bleeding Qualified Code(s): K51.911 - Ulcerative colitis, unspecified with rectal bleeding Nausea and vomiting Qualifiers: Vomiting type: unspecified Vomiting Intractability: non-intractable Qualified Code(s): R11.2 - Nausea with vomiting, unspecified Syncope Qualifiers: Syncope type: unspecified Qualified Code(s): R55 - Syncope and collapse Condition: Fair Disposition: ADMITTED OBSERVATION Admitting Provider: Hospitalist Unit Admitted: Telemetry
[2018-01-01 19:51] LABS: ABSOLUTE BASOPHILS # (AUTO) 0.1 10^3/uL (0.0-0.2); ABSOLUTE EOSINOPHILS # (AUTO) 0.2 10^3/uL (0.0-0.6); ABSOLUTE LYMPHOCYTES (AUTO) 2.5 10^3/uL (0.5-4.7); ABSOLUTE MONOCYTES (AUTO) 1.5 10^3/uL (0.1-1.4); ABSOLUTE NEUT (AUTO) 11.7 10^3/uL (1.7-8.2); BASOPHILS % (AUTO) 0.4 % (0-2); EOSINOPHILS % (AUTO) 1.5 % (0-6); HEMATOCRIT 32.5 % (36.0-47.0); HEMOGLOBIN 10.7 g/dL (12.0-15.5); LYMPHOCYTES % (AUTO) 15.5 % (13-45); MEAN CORPUSCULAR HEMOGLOBIN 23.8 pg (27.0-33.4); MEAN CORPUSCULAR HGB CONC 32.9 g/dL (32.0-36.0); MEAN CORPUSCULAR VOLUME 73 fl (80-97); MONOCYTES % (AUTO) 9.1 % (3-13); RED BLOOD COUNT 4.48 10^6/uL (3.72-5.28); RED CELL DISTRIBUTION WIDTH 17.4 % (11.5-14.0); SEGMENTED NEUTROPHILS % (AUTO) 73.5 % (42-78); TOTAL CELLS COUNTED % (AUTO) 100 %; WHITE BLOOD COUNT 15.9 10^3/uL (4.0-10.5)
[2018-01-01 20:06] LABS: ALANINE AMINOTRANSFERASE 22 U/L (9-52); ALBUMIN 2.5 g/dL (3.5-5.0); ALKALINE PHOSPHATASE 107 U/L (38-126); ANION GAP 10 (5-19); ASPARTATE AMINO TRANSFERASE 22 U/L (14-36); BILIRUBIN,DIRECT 0.4 mg/dL (0.0-0.4); BILIRUBIN,TOTAL 0.5 mg/dL (0.2-1.3); BLOOD UREA NITROGEN 12 mg/dL (7-20); CALCIUM 8.5 mg/dL (8.4-10.2); CARBON DIOXIDE 22 mmol/L (22-30); CHLORIDE 100 mmol/L (98-107); GLUCOSE 164 mg/dL (75-110); LIPASE 94.7 U/L (23-300); POTASSIUM 3.1 mmol/L (3.6-5.0); SODIUM 132.2 mmol/L (137-145)
[2018-01-01 20:08] LABS: PLATELET COUNT 1003 10^3/uL (150-450)
[2018-01-01] MEDS ORDERED: ONDANSETRON HCL INJ/PF 4 MG/2 ML SDV ONE (20:22)
[2018-01-01] MEDS ORDERED: ONDANSETRON HCL INJ/PF 4 MG/2 ML SDV IV ONE (22:02)
[2018-01-01] MEDS ORDERED: RINGERS SOLUTION,LACTATED 1,000 ML IV ONE ×2 (22:03→23:37)
[2018-01-01] MEDS ORDERED: POTASSIUM CHLORIDE 20 MEQ/15 ML UDCUP PO ONE (23:20)
[2018-01-01] MEDS ORDERED: MAGNESIUM OXIDE 400 MG TABLET PO ONE (23:21)
[2018-01-02 00:50] LABS: HEMATOCRIT 29.6 % (36.0-47.0); HEMOGLOBIN 9.7 g/dL (12.0-15.5); MEAN CORPUSCULAR HGB CONC 32.7 g/dL (32.0-36.0); MEAN CORPUSCULAR VOLUME 73 fl (80-97); PLATELET COUNT 807 10^3/uL (150-450); RED BLOOD COUNT 4.04 10^6/uL (3.72-5.28); WHITE BLOOD COUNT 16.8 10^3/uL (4.0-10.5)
[2018-01-02] MEDS ORDERED: METHYLPREDNISOLONE INJ 500 MG VIAL IV ONE (01:03)
[2018-01-02] MEDS ORDERED: PROMETHAZINE HCL 25 MG TABLET PO PRN (01:51)
[2018-01-02] MEDS ORDERED: PROMETHAZINE HCL INJ 25 MG/1 ML VIAL IV PRN (01:51)
[2018-01-02] MEDS ORDERED: PANTOPRAZOLE SODIUM 40 MG VIAL IV ONE (02:10)
--- NOTE | 2018-01-02 02:16 | PDOC H&P ---
History of Present Illness Admission Date/PCP: 01/02/18 01:34 CLAUDETTE ZEE MD PCP Fermin CAMEJO Patient complains of: Diarrhea History of Present Illness: MELI MCQUEEN is a 57 year old female with medical history of ulcerative colitis diagnosed in October this year. Comes to the emergency department complaining of 2 weeks of bloody diarrhea with mucus mixed with the stools, refers the blood as bright red, multiple episodes a day. Also complains of diffuse abdominal pain that initially was sharp, like gas pains but has became achy, not associated with bowel movements. Has been very nauseated with several episodes of nonbloody vomiting. Yesterday she was feeling so sick that passed out on the couch, when she woke up she was very clammy, weak and decided to come to the emergency department. Denies fever or chills. Tells me that her GI doctor placed her on mesalamine and prednisone but she is not taking any of these medication as was too afraid of the side effects. She was in our emergency department last Thursday and was discharged home. In the emergency department she is tachycardic at 124, hypotensive, blood pressure normalized after 1 L of Ringer lactate, pale, hemoglobin 8.7 and hematocrit 2:27 liters of IV fluids. Leukocytosis with white count of 16.8 Initially was felt that the patient can be discharged home but she is too weak. Past Medical History Endocrine Medical History: Reports: Hypothyroidism Malignancy Medical History: Reports: Other - Malignant melanoma GI Medical History: Reports: Ulcerative Colitis Musculoskeltal Medical History: Reports: Arthritis Skin Medical History: Reports: Other - Urticaria Past Surgical History Past Surgical History: Reports: Orthopedic Surgery Social History Information Source: Patient Lives with: Alone Smoking Status: Never Smoker Frequency of Alcohol Use: None Hx Recreational Drug Use: No Hx Prescription Drug Abuse: No Family History Family History: Reviewed & Not Pertinent Parental Family History Reviewed: No Children Family History Reviewed: NA Sibling(s) Family History Reviewed.: NA Medication/Allergy Home Medications: Prednisone [Deltasone 10 mg Tablet] 10 mg PO ASDIR PRN #21 tablet 04/11/14 Prednisone [Deltasone 20 mg Tablet] 3 tab PO DAILY 5 Days tablet 02/08/15 Oxycodone HCl/Acetaminophen [Percocet 5-325 mg Tablet] 1 tab PO ASDIR PRN #15 tablet 06/18/17 Sulfamethoxazole/Trimethoprim [Bactrim Ds Tablet] 1 each PO BID #20 tablet 06/18 Ciprofloxacin HCl [Cipro 500 mg Tablet] 500 mg PO BID #20 tablet 12/23/17 Metronidazole [Flagyl] 500 mg PO TID #21 tablet 12/23/17 Potassium Chloride 10 meq PO DAILY #5 tablet.er 12/23/17 Promethazine HCl [Phenergan 25 mg Tablet] 25 mg PO BID PRN #8 tablet 12/23/17 Allergies/Adverse Reactions: No Known Allergies Allergy (Verified 01/01/18 18:59) Review of Systems Review of Systems: As outlined in the HPI, others negative Physical Exam Vital Signs: Temp Pulse Resp BP Pulse Ox 97.5 F 124 H 16 112/77 98 01/01/18 20:03 01/01/18 19:04 01/02/18 01:30 01/02/18 01:30 01/02/18 01:30 Additional comments: General appearance: Well-developed, well-nourished, alert and cooperative, and appears to be in mild acute distress secondary to illness Head: Normocephalic Eyes: PEERL, EOMI, vision is grossly intact. Ears: External auditory canal and tympanic membranes clear, hearing grossly intact. Nose: No nasal discharge. Throat: Oral cavity and pharynx normal. No inflammation, swelling, exudate or lesions. Neck: Neck supple, nontender without lymphadenopathy, masses or thyromegaly. Cardiac: Normal S1 and S2. No S3, S4 or murmurs. Rhythm is regular and tachycardic. There is no peripheral edema, cyanosis or pallor. Extremities are warm and well perfused. Capillary refill is less than 2 seconds. No carotid bruits. Lungs: Clear to auscultation and percussion without rales, rhonchi, wheezing or diminished breath sounds. Not using accessory muscles. Abdomen: Positive bowel sounds. Soft. Nondistended, nontender. No guarding or rebound. No masses. No hepatosplenomegaly Extremities: No significant deformity or joint abnormality. No edema. Peripheral pulses intact. No varicosities. Neurological: Cranial nerves II through XII grossly intact. Strength and sensation symmetric and intact throughout. Reflexes 2+ throughout. Skin: Skin very pale , normal texture and turgor with melanoma on her left side , no eruptions, warm and dry. Psychiatric: The mental examination revealed the patient was oriented to person , place, and time. The patient was able to demonstrate good judgment on recent , without hallucinations, abnormal affect or abnormal behaviors. Results Laboratory Results: 01/01/18 01/01/18 01/01/18 19:31 19:31 19:31 WBC 15.9 H RBC 4.48 Hgb 10.7 L Hct 32.5 L MCV 73 L MCH 23.8 L MCHC 32.9 RDW 17.4 H Plt Count 1003 H* Seg Neutrophils % 73.5 Lymphocytes % 15.5 Monocytes % 9.1 Eosinophils % 1.5 Basophils % 0.4 Absolute Neutrophils 11.7 H Absolute Lymphocytes 2.5 Absolute Monocytes 1.5 H Absolute Eosinophils 0.2 Absolute Basophils 0.1 Sodium 132.2 L Potassium 3.1 L Chloride 100 Carbon Dioxide 22 Anion Gap 10 BUN 12 Creatinine 0.86 Est GFR ( Amer) > 60 Est GFR (Non-Af Amer) > 60 Glucose 164 H Calcium 8.5 Total Bilirubin 0.5 Direct Bilirubin 0.4 AST 22 ALT 22 Alkaline Phosphatase 107 Troponin I < 0.012 Total Protein 6.0 L Albumin 2.5 L Lipase 94.7 01/02/18 00:40 WBC 16.8 H RBC 4.04 Hgb 9.7 L Hct 29.6 L MCV 73 L MCH 24.0 L MCHC 32.7 RDW 17.0 H Plt Count 807 H Seg Neutrophils % Lymphocytes % Monocytes % Eosinophils % Basophils % Absolute Neutrophils Absolute Lymphocytes Absolute Monocytes Absolute Eosinophils Absolute Basophils Sodium Potassium Chloride Carbon Dioxide Anion Gap BUN Creatinine Est GFR ( Amer) Est GFR (Non-Af Amer) Glucose Calcium Total Bilirubin Direct Bilirubin AST ALT Alkaline Phosphatase Troponin I Total Protein Albumin Lipase Assessment & Plan - Diagnosis (1) Ulcerative colitis Qualifiers: Ulcerative colitis location: unspecified ulcerative colitis location Digestive disease complication type: with rectal bleeding Qualified Code(s): K51.911 - Ulcerative colitis, unspecified with rectal bleeding Is this a current diagnosis for this admission?: Yes Plan: Patient was diagnosed with ulcerative colitis October this year, initiated on mesalamine and prednisone that she is not taking as she is afraid of side effects. Patient is severely dehydrated and pale. Hemoglobin 9.7 and hematocrit 20 night, we will closely monitor this value and transfuse as necessary, type and screen done in the ED and 2 units of PRBC on hold. We will start her on Solu-Medrol 60 mg every 6 hours. 2 L of IV fluids given and will continue with normal saline running at 1 25 cc/h. PT and PTT requested. Will send C. difficile and stool cultures. Patient tells me she is going to call her GI doctor to change her UC medications. (2) Hypothyroid Is this a current diagnosis for this admission?: Yes Plan: Continue with Synthroid (3) Syncope Qualifiers: Syncope type: unspecified Qualified Code(s): R55 - Syncope and collapse Is this a current diagnosis for this admission?: Yes Plan: Likely vasovagal and related with severe dehydration, IV fluids running. (4) Thrombocytosis Is this a current diagnosis for this admission?: Yes Plan: Platelets 1003 (5) Malignant melanoma Is this a current diagnosis for this admission?: Yes Plan: Patient follows with , patient is going to start on immunotherapy - Time Time Spent: 30 to 50 Minutes
[2018-01-02 02:32] LABS: INTERNATIONAL RATION (INR) 1.28; PROTHROMBIN TIME 16.6 SEC (11.4-15.4)
[2018-01-02 02:33] LABS: PARTIAL THROMBOPLASTIN TIME 33.8 SEC (23.5-35.8)
[2018-01-02] MEDS: METHYLPREDNISOLONE INJ 40 MG/1 ML SDV IV SCH ×4 (04:15→21:12)
[2018-01-02] MEDS: NORMAL SALINE 1000 ML 1,000 ML IV PRN ×2 (04:15→21:12)
[2018-01-02 06:06] LABS: HEMATOCRIT 26.1 % (36.0-47.0); HEMOGLOBIN 8.7 g/dL (12.0-15.5); MEAN CORPUSCULAR HEMOGLOBIN 24.5 pg (27.0-33.4); MEAN CORPUSCULAR HGB CONC 33.3 g/dL (32.0-36.0); MEAN CORPUSCULAR VOLUME 74 fl (80-97); PLATELET COUNT 610 10^3/uL (150-450); RED BLOOD COUNT 3.56 10^6/uL (3.72-5.28); RED CELL DISTRIBUTION WIDTH 17.2 % (11.5-14.0); WHITE BLOOD COUNT 10.4 10^3/uL (4.0-10.5)
[2018-01-02 10:18] LABS: ABSOLUTE RETICS # 0.088 10^6/uL (0.028-0.122); HEMATOCRIT 27.2 % (36.0-47.0); HEMOGLOBIN 9.2 g/dL (12.0-15.5); MEAN CORPUSCULAR HEMOGLOBIN 24.8 pg (27.0-33.4); MEAN CORPUSCULAR HGB CONC 33.7 g/dL (32.0-36.0); MEAN CORPUSCULAR VOLUME 74 fl (80-97); PLATELET COUNT 651 10^3/uL (150-450); RED BLOOD COUNT 3.71 10^6/uL (3.72-5.28); RED CELL DISTRIBUTION WIDTH 17.3 % (11.5-14.0); RETICULOCYTE COUNT (AUTO) 2.36 % (0.66-2.85); WHITE BLOOD COUNT 9.5 10^3/uL (4.0-10.5)
[2018-01-02 10:32] LABS: ANION GAP 7 (5-19); BLOOD UREA NITROGEN 11 mg/dL (7-20); CALCIUM 8.1 mg/dL (8.4-10.2); CARBON DIOXIDE 24 mmol/L (22-30); CHLORIDE 104 mmol/L (98-107); GLUCOSE 174 mg/dL (75-110); POTASSIUM 3.3 mmol/L (3.6-5.0)
[2018-01-02 11:07] LABS: FERRITIN 5.75 ng/mL (11.1-264.0)
[2018-01-02 11:47] LABS: IRON(TIBC) < 10.1 ug/dL (37-170)
--- NOTE | 2018-01-02 12:41 | EKG REPORT ---
SEVERITY:- NORMAL ECG - SINUS RHYTHM : Confirmed by: Kayla Haddad MD 02-Jan-2018 12:41:08
[2018-01-02] MEDS: POTASSIUM CHLORIDE 20 MEQ/15 ML UDCUP PO SCH (14:48)
--- NOTE | 2018-01-02 16:10 | Progress Note ---
Provider Note Provider Note: Brief hospitalist note: This patient was admitted after midnight. She was still in the ER when I saw her this morning. She states that she is feeling a little bit better. Less dizzy. Last week. She thinks she is still having blood per rectum but also thinks that it is getting better. No chest pain or difficulty breathing. No nausea or vomiting. No urinary complaints. She states she is due to see a mathematical engineer about her ulcerative colitis and she also due to see Dr. Duarte to discuss her diagnosis of melanoma. On exam she is lying in her ER stretcher, very pale and tired appearing. Mucous membranes are slightly dry. Extraocular movements are intact. External inspection of ears and nose is normal. Regular rate and rhythm with systolic murmur. Lungs are clear to auscultation in all denise bilaterally. Abdomen is slightly tender to palpation, not rigid, no rebound. Hyperactive bowel sounds. Assessment: 57-year-old woman with lower GI bleed possibly related ulcerative colitis and who has been nervous about taking medications for her UC secondary to what she describes as frightening side effects. She and I spoke at length about the fact that she is now experiencing possibly the impact of not treating her UC and that at a certain point she is going to have to weigh the pros and cons of treating and not treating. For now she is on steroids and her symptoms do seem to be improving. Continue steroids as ordered by Dr. Merino. We will continue fluid hydration. We will follow her hemoglobin and hematocrit, at this point I do not think she needs a transfusion but again we will watch closely. I have consulted Dr. Duarte's group to see her while she is in the hospital. I am replacing her potassium. We will recheck her chemistry panel in the morning.
[2018-01-02 17:41] LABS: HEMATOCRIT 28.9 % (36.0-47.0); HEMOGLOBIN 9.5 g/dL (12.0-15.5); MEAN CORPUSCULAR HEMOGLOBIN 24.3 pg (27.0-33.4); MEAN CORPUSCULAR HGB CONC 32.9 g/dL (32.0-36.0); MEAN CORPUSCULAR VOLUME 74 fl (80-97); PLATELET COUNT 759 10^3/uL (150-450); RED BLOOD COUNT 3.92 10^6/uL (3.72-5.28); RED CELL DISTRIBUTION WIDTH 17.6 % (11.5-14.0); WHITE BLOOD COUNT 10.8 10^3/uL (4.0-10.5)
[2018-01-02 19:21] LABS: APPEARANCE,URINE CLOUDY; BILIRUBIN,URINE NEGATIVE (NEGATIVE); COLOR,URINE YELLOW; GLUCOSE, URINE >=500 mg/dL (NEGATIVE); KETONES,URINE TRACE mg/dL (NEGATIVE); LEUKOCYTE ESTERASE,URINE SMALL (NEGATIVE); NITRITE,URINE NEGATIVE (NEGATIVE); PROTEIN,URINE 30 mg/dL (NEGATIVE); URINE SPECIFIC GRAVITY 1.023; UROBILINOGEN,URINE NEGATIVE mg/dL (<2.0)
[2018-01-02] MEDS ORDERED: IRON DEXTRAN INJ 100 MG/2 ML VIAL IV SCH (21:00)
[2018-01-03] MEDS: METHYLPREDNISOLONE INJ 40 MG/1 ML SDV IV SCH ×4 (05:05→21:06)
[2018-01-03] MEDS: NORMAL SALINE 1000 ML 1,000 ML IV PRN ×2 (05:05→12:57)
[2018-01-03 07:44] LABS: ABSOLUTE MONOCYTES (AUTO) 0.8 10^3/uL (0.1-1.4); ABSOLUTE NEUT (AUTO) 13.5 10^3/uL (1.7-8.2); BASOPHILS % (AUTO) 0.1 % (0-2); HEMATOCRIT 25.2 % (36.0-47.0); HEMOGLOBIN 8.4 g/dL (12.0-15.5); LYMPHOCYTES % (AUTO) 6.4 % (13-45); MEAN CORPUSCULAR HEMOGLOBIN 24.3 pg (27.0-33.4); MEAN CORPUSCULAR HGB CONC 33.2 g/dL (32.0-36.0); MEAN CORPUSCULAR VOLUME 73 fl (80-97); MONOCYTES % (AUTO) 5.2 % (3-13); PLATELET COUNT 587 10^3/uL (150-450); RED BLOOD COUNT 3.44 10^6/uL (3.72-5.28); RED CELL DISTRIBUTION WIDTH 17.5 % (11.5-14.0); SEGMENTED NEUTROPHILS % (AUTO) 88.3 % (42-78); TOTAL CELLS COUNTED % (AUTO) 100 %; WHITE BLOOD COUNT 15.2 10^3/uL (4.0-10.5)
[2018-01-03 08:00] LABS: ANION GAP 7 (5-19); BLOOD UREA NITROGEN 11 mg/dL (7-20); CALCIUM 8.1 mg/dL (8.4-10.2); CARBON DIOXIDE 22 mmol/L (22-30); CHLORIDE 105 mmol/L (98-107); GLUCOSE 194 mg/dL (75-110); PHOSPHORUS 2.6 mg/dL (2.5-4.5); POTASSIUM 3.5 mmol/L (3.6-5.0); SODIUM 133.7 mmol/L (137-145)
[2018-01-03] MEDS: POTASSIUM CHLORIDE 20 MEQ/15 ML UDCUP PO SCH (09:40)
[2018-01-03] MEDS ORDERED: DIPHENHYDRAMINE HCL 25 MG CAPSULE PO PRN (16:22)
[2018-01-03] MEDS ORDERED: ACETAMINOPHEN 325 MG TABLET PO PRN (16:22)
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
[2018-01-03] MEDS: ACETAMINOPHEN 325 MG TABLET PO PRN (17:07)
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
[2018-01-03] MEDS ORDERED: IRON DEXTRAN COMPLEX 25 MG in SYRINGE, DISPOSABLE, 1 EACH IV ONE (17:30)
[2018-01-03] MEDS ORDERED: NORMAL SALINE IV ONE ×2 (18:00→21:00)
[2018-01-03] MEDS ORDERED: IRON DEXTRAN COMPLEX IV ONE ×2 (18:00→21:00)
[2018-01-03 18:57] LABS: HEMATOCRIT 25.7 % (36.0-47.0); HEMOGLOBIN 8.3 g/dL (12.0-15.5); MEAN CORPUSCULAR HEMOGLOBIN 24.4 pg (27.0-33.4); MEAN CORPUSCULAR HGB CONC 32.3 g/dL (32.0-36.0); MEAN CORPUSCULAR VOLUME 75 fl (80-97); PLATELET COUNT 592 10^3/uL (150-450); RED BLOOD COUNT 3.41 10^6/uL (3.72-5.28); RED CELL DISTRIBUTION WIDTH 17.5 % (11.5-14.0); WHITE BLOOD COUNT 20.2 10^3/uL (4.0-10.5)
[2018-01-03 19:05] LABS: ANION GAP 7 (5-19); BLOOD UREA NITROGEN 10 mg/dL (7-20); CALCIUM 8.1 mg/dL (8.4-10.2); CARBON DIOXIDE 23 mmol/L (22-30); CHLORIDE 104 mmol/L (98-107); GLUCOSE 289 mg/dL (75-110); POTASSIUM 3.7 mmol/L (3.6-5.0); SODIUM 134.3 mmol/L (137-145)
[2018-01-04] MEDS: METHYLPREDNISOLONE INJ 40 MG/1 ML SDV IV SCH ×4 (02:00→21:34)
[2018-01-04] MEDS: NORMAL SALINE 1000 ML 1,000 ML IV PRN ×2 (02:01→14:10)
[2018-01-04] MEDS ORDERED: ACETAMINOPHEN 325 MG TABLET PO PRN (07:16)
[2018-01-04] MEDS ORDERED: DIPHENHYDRAMINE HCL 25 MG CAPSULE PO PRN (07:16)
[2018-01-04] MEDS: ACETAMINOPHEN 325 MG TABLET PO PRN ×3 (08:23→20:15)
--- NOTE | 2018-01-04 08:44 | PDOC PROGRESS REPORT ---
Subjective Progress Note for:: 01/04/18 Subjective:: Patient feels much better, today had long discussion with patient about the rationale behind treatment of the colitis, she is still very concerned about using mesalamine upon discharge. But she does now understand the prednisone is appropriate for her condition, and agrees to use this at least as an outpatient. She would like to talk to her tour coordinator as an outpatient. Reason For Visit: ULCERATIVE FLARE Physical Exam Vital Signs: Temp Pulse Resp BP Pulse Ox 97.4 F 83 16 130/80 H 96 01/04/18 07:19 01/04/18 07:19 01/04/18 07:19 01/04/18 07:19 01/04/18 07:19 Intake & Output 01/03/18 01/04/18 01/05/18 06:59 06:59 06:59 Intake Total 2650 3260.0 Output Total 650 500 Balance 2000 2760.0 Weight 103.3 kg 102.2 kg General appearance: PRESENT: no acute distress, well-developed, well-nourished Head exam: PRESENT: atraumatic, normocephalic Eye exam: PRESENT: conjunctiva pink, EOMI, PERRLA. ABSENT: scleral icterus Ear exam: PRESENT: normal external ear exam Mouth exam: PRESENT: moist, tongue midline Neck exam: ABSENT: carotid bruit, JVD, lymphadenopathy, thyromegaly Respiratory exam: PRESENT: clear to auscultation brisa. ABSENT: rales, rhonchi, wheezes Cardiovascular exam: PRESENT: RRR. ABSENT: diastolic murmur, rubs, systolic murmur Pulses: PRESENT: normal dorsalis pedis pul Vascular exam: PRESENT: normal capillary refill GI/Abdominal exam: PRESENT: normal bowel sounds, soft. ABSENT: distended, guarding, mass, organolmegaly, rebound, tenderness Rectal exam: PRESENT: deferred Extremities exam: PRESENT: full ROM. ABSENT: calf tenderness, clubbing, pedal edema Neurological exam: PRESENT: alert, awake, oriented to person, oriented to place , oriented to time, oriented to situation, CN II-XII grossly intact. ABSENT: motor sensory deficit Psychiatric exam: PRESENT: appropriate affect, normal mood. ABSENT: homicidal ideation, suicidal ideation Skin exam: PRESENT: dry, intact, warm. ABSENT: cyanosis, rash Results Laboratory Results: 01/03/18 18:20 01/03/18 18:20 01/03/18 01/03/18 01/04/18 18:20 18:20 06:05 WBC 20.2 H RBC 3.41 L Hgb 8.3 L Hct 25.7 L MCV 75 L MCH 24.4 L MCHC 32.3 RDW 17.5 H Plt Count 592 H Sodium 134.3 L Potassium 3.7 Chloride 104 Carbon Dioxide 23 Anion Gap 7 BUN 10 Creatinine 0.76 Est GFR ( Amer) > 60 Est GFR (Non-Af Amer) > 60 Glucose 289 H Calcium 8.1 L Magnesium 1.8 Assessment & Plan - Diagnosis (1) Ulcerative colitis Qualifiers: Ulcerative colitis location: ulcerative rectosigmoiditis Digestive disease complication type: with rectal bleeding Qualified Code(s): K51.311 - Ulcerative (chronic) rectosigmoiditis with rectal bleeding Is this a current diagnosis for this admission?: Yes Plan: Severe ulcerative colitis, continue with Solu-Medrol per hospitalist team, probably would need another 24 hours then. Continue with current therapy and follow-up with gastroenterology as an outpatient. (2) Iron deficiency anemia due to chronic blood loss Is this a current diagnosis for this admission?: Yes Plan: Iron deficiency anemia, IV iron given, hemoglobin improved. (3) Malignant melanoma Qualifiers: Melanoma location: upper extremity including shoulder Is this a current diagnosis for this admission?: Yes Plan: Unfortunately needs most likely systemic therapy at this point, but we could not really pursue systemic therapy unless the colitis is controlled. Regardless , the patient does not want any therapy done here, she apparently wants to pursue alternative therapy in [place]. - Time Time Spent with patient: 35 or more minutes - Inpatient Certification Based on my medical assessment, after consideration of the patient's comorbidities, presenting symptoms, or acuity I expect that the services needed warrant INPATIENT care.: Yes I certify that my determination is in accordance with my understanding of Medicare's requirements for reasonable and necessary INPATIENT services [42 CFR 412.3e].: Yes Medical Necessity: Risk of Complication if Not Cared For in Hospital
[2018-01-04] MEDS: POTASSIUM CHLORIDE 20 MEQ/15 ML UDCUP PO SCH (09:35)
[2018-01-04 09:38] LABS: BLOOD UREA NITROGEN 12 mg/dL (7-20); CARBON DIOXIDE 23 mmol/L (22-30); GLUCOSE 182 mg/dL (75-110); POTASSIUM 3.9 mmol/L (3.6-5.0)
[2018-01-04 09:45] LABS: ANION GAP 5 (5-19); CHLORIDE 109 mmol/L (98-107); SODIUM 136.7 mmol/L (137-145)
[2018-01-04] MEDS ORDERED: NORMAL SALINE IV ONE (10:00)
[2018-01-04] MEDS ORDERED: IRON DEXTRAN COMPLEX IV ONE (10:00)
[2018-01-04 11:04] LABS: PATH REVIEW PATHOLOGIST REVIEWED
[2018-01-04] MEDS: MAG HYDROX/AL HYDROX/SIMETH SUSP 30 ML UDCUP PO PRN (14:11)
--- NOTE | 2018-01-04 15:48 | PDOC PROGRESS REPORT ---
Subjective Progress Note for:: 01/04/18 Subjective:: She feels significantly better. Her bleeding has stopped. Diarrhea has proved and she is now having soft stools. Abdominal pain is improving. Her energy level is improving. He is starting to eat and drink better. She is able to walk around a little bit. Her back pain is bothering her but other than that she is feeling a lot better. No chest pain or difficulty breathing. Reason For Visit: ULCERATIVE COLITIS FLARE Physical Exam Vital Signs: Temp Pulse Resp BP Pulse Ox 97.5 F 89 16 139/78 H 98 01/04/18 11:23 01/04/18 11:23 01/04/18 11:23 01/04/18 11:23 01/04/18 11:23 Intake & Output 01/03/18 01/04/18 01/05/18 06:59 06:59 06:59 Intake Total 2650 3260.0 1510 Output Total 650 500 Balance 2000 2760.0 1510 Weight 103.3 kg 102.2 kg General appearance: PRESENT: no acute distress, cooperative Head exam: PRESENT: atraumatic, normocephalic Eye exam: PRESENT: EOMI. ABSENT: conjunctival injection, scleral icterus Mouth exam: PRESENT: moist. ABSENT: tongue midline Respiratory exam: PRESENT: clear to auscultation brisa, unlabored. ABSENT: rales , rhonchi, wheezes Cardiovascular exam: PRESENT: RRR, systolic murmur Pulses: PRESENT: normal radial pulses GI/Abdominal exam: PRESENT: distended, normal bowel sounds, soft, tenderness. ABSENT: firm Rectal exam: PRESENT: deferred Extremities exam: ABSENT: pedal edema Neurological exam: PRESENT: alert, awake, oriented to person, oriented to place , oriented to situation, CN II-XII grossly intact Psychiatric exam: PRESENT: appropriate affect. ABSENT: anxious Skin exam: PRESENT: dry, intact, pallor, warm Results Laboratory Results: 01/03/18 18:20 01/04/18 06:05 01/03/18 01/03/18 01/04/18 18:20 18:20 06:05 WBC 20.2 H RBC 3.41 L Hgb 8.3 L Hct 25.7 L MCV 75 L MCH 24.4 L MCHC 32.3 RDW 17.5 H Plt Count 592 H Sodium 134.3 L 136.7 L Potassium 3.7 3.9 Chloride 104 109 H Carbon Dioxide 23 23 Anion Gap 7 5 BUN 10 12 Creatinine 0.76 0.69 Est GFR ( Amer) > 60 > 60 Est GFR (Non-Af Amer) > 60 > 60 Glucose 289 H 182 H Calcium 8.1 L 8.0 L Magnesium 01/04/18 06:05 WBC RBC Hgb Hct MCV MCH MCHC RDW Plt Count Sodium Potassium Chloride Carbon Dioxide Anion Gap BUN Creatinine Est GFR ( Amer) Est GFR (Non-Af Amer) Glucose Calcium Magnesium 1.8 01/02/18 18:55 Clean Catch Midstream Urine Culture - Final Staph Coagulase Negative Mixed Urogenital Parvin Assessment & Plan - Diagnosis (1) Anemia Is this a current diagnosis for this admission?: Yes Plan: Patient's bleeding has ceased. Her hemoglobin is stable. She is receiving IV iron and being followed by hematology. 10 use steroids for ulcerative colitis bleeding. Continue to monitor hemoglobin. (2) Ulcerative colitis Qualifiers: Ulcerative colitis location: ulcerative rectosigmoiditis Digestive disease complication type: with rectal bleeding Qualified Code(s): K51.311 - Ulcerative (chronic) rectosigmoiditis with rectal bleeding Is this a current diagnosis for this admission?: Yes Plan: Significantly improved with IV steroids. We will continue those with taper and will dosing today to 60 mg IV every 8 hours. She agrees to go home on a prednisone taper. We have been encouraging her to take the mesalamine as prescribed by her ocean export coordinator. She will need close GI follow-up. (3) Iron deficiency anemia due to chronic blood loss Is this a current diagnosis for this admission?: Yes Plan: She is receiving IV iron. She is being followed by the forensic dna analyst. (4) Malignant melanoma Qualifiers: Melanoma location: upper extremity including shoulder Is this a current diagnosis for this admission?: Yes Plan: When she gets better from the ulcerative colitis perspective she will see Dr. Duarte as an outpatient to potentially continue treatment for her melanoma. (5) Nausea and vomiting Qualifiers: Vomiting type: unspecified Vomiting Intractability: non-intractable Qualified Code(s): R11.2 - Nausea with vomiting, unspecified Is this a current diagnosis for this admission?: Yes Plan: Almost completely resolved nausea. Patient is not eating and drinking. (6) Syncope Qualifiers: Syncope type: unspecified Qualified Code(s): R55 - Syncope and collapse Is this a current diagnosis for this admission?: Yes Plan: This was secondary to acute blood loss anemia and dehydration. No further episodes during the hospitalization. She has been rehydrated and has stopped bleeding. No transfusion has been indicated at this point. (7) Thrombocytosis Is this a current diagnosis for this admission?: Yes Plan: Probably due to acute inflammation. Is improving with treatment for her ulcerative colitis flare and with IV iron. We will continue to monitor. - Time Time Spent with patient: 25-34 minutes Medications reviewed and adjusted accordingly: Yes - Inpatient Certification Based on my medical assessment, after consideration of the patient's comorbidities, presenting symptoms, or acuity I expect that the services needed warrant INPATIENT care.: Yes I certify that my determination is in accordance with my understanding of Medicare's requirements for reasonable and necessary INPATIENT services [42 CFR 412.3e].: Yes Medical Necessity: Significant Comorbidiites Make Outpatient Treatment Too Risky , Need Close Monitoring Due to Risk of Patient Decompensation
[2018-01-04 16:48] LABS: HEMATOCRIT 25.6 % (36.0-47.0); HEMOGLOBIN 8.3 g/dL (12.0-15.5); MEAN CORPUSCULAR HEMOGLOBIN 23.8 pg (27.0-33.4); MEAN CORPUSCULAR HGB CONC 32.5 g/dL (32.0-36.0); MEAN CORPUSCULAR VOLUME 73 fl (80-97); PLATELET COUNT 460 10^3/uL (150-450); RED BLOOD COUNT 3.49 10^6/uL (3.72-5.28)
[2018-01-04 17:15] LABS: ANION GAP 7 (5-19); BLOOD UREA NITROGEN 11 mg/dL (7-20); CALCIUM 8.4 mg/dL (8.4-10.2); CARBON DIOXIDE 21 mmol/L (22-30); CHLORIDE 109 mmol/L (98-107); GLUCOSE 211 mg/dL (75-110); POTASSIUM 3.8 mmol/L (3.6-5.0); SODIUM 137.3 mmol/L (137-145)
[2018-01-04 17:28] LABS: WHITE BLOOD COUNT 38.3 10^3/uL (4.0-10.5)
[2018-01-05] MEDS: MAG HYDROX/AL HYDROX/SIMETH SUSP 30 ML UDCUP PO PRN (01:12)
[2018-01-05] MEDS ORDERED: PROMETHAZINE HCL INJ 25 MG/1 ML VIAL IV ONE (01:15)
[2018-01-05] MEDS ORDERED: PROMETHAZINE HCL INJ 25 MG/1 ML VIAL IV PRN (04:15)
[2018-01-05] MEDS: METHYLPREDNISOLONE INJ 40 MG/1 ML SDV IV SCH ×3 (05:46→21:09)
[2018-01-05] MEDS: NORMAL SALINE 1000 ML 1,000 ML IV PRN ×2 (05:47→14:05)
--- NOTE | 2018-01-05 08:29 | PDOC PROGRESS REPORT ---
Subjective Progress Note for:: 01/05/18 Subjective:: Pt had some nausea and reflux overnight but no further bloody diarrhea Reason For Visit: ULCERATIVE COLITIS FLARE Physical Exam Vital Signs: Temp Pulse Resp BP Pulse Ox 98.1 F 80 16 142/75 H 96 01/05/18 03:33 01/05/18 03:33 01/05/18 03:33 01/05/18 03:33 01/05/18 03:33 Intake & Output 01/04/18 01/05/18 01/06/18 06:59 06:59 06:59 Intake Total 3260.0 5030 Output Total 500 Balance 2760.0 5030 Weight 102.2 kg 109.3 kg General appearance: PRESENT: no acute distress, well-developed, well-nourished Head exam: PRESENT: atraumatic, normocephalic Eye exam: PRESENT: conjunctiva pink, EOMI, PERRLA. ABSENT: scleral icterus Ear exam: PRESENT: normal external ear exam Mouth exam: PRESENT: moist, tongue midline Neck exam: ABSENT: carotid bruit, JVD, lymphadenopathy, thyromegaly Respiratory exam: PRESENT: clear to auscultation brisa. ABSENT: rales, rhonchi, wheezes Cardiovascular exam: PRESENT: RRR. ABSENT: diastolic murmur, rubs, systolic murmur Pulses: PRESENT: normal dorsalis pedis pul Vascular exam: PRESENT: normal capillary refill GI/Abdominal exam: PRESENT: normal bowel sounds, soft. ABSENT: distended, guarding, mass, organolmegaly, rebound, tenderness Rectal exam: PRESENT: deferred Extremities exam: PRESENT: full ROM. ABSENT: calf tenderness, clubbing, pedal edema Neurological exam: PRESENT: alert, awake, oriented to person, oriented to place , oriented to time, oriented to situation, CN II-XII grossly intact. ABSENT: motor sensory deficit Psychiatric exam: PRESENT: appropriate affect, normal mood. ABSENT: homicidal ideation, suicidal ideation Skin exam: PRESENT: dry, intact, warm. ABSENT: cyanosis, rash Results Laboratory Results: 01/04/18 16:30 01/04/18 16:30 01/04/18 01/04/18 01/04/18 06:05 16:30 16:30 WBC 38.3 H* RBC 3.49 L Hgb 8.3 L Hct 25.6 L MCV 73 L MCH 23.8 L MCHC 32.5 RDW 18.0 H Plt Count 460 H Sodium 136.7 L 137.3 Potassium 3.9 3.8 Chloride 109 H 109 H Carbon Dioxide 23 21 L Anion Gap 5 7 BUN 12 11 Creatinine 0.69 0.67 Est GFR ( Amer) > 60 > 60 Est GFR (Non-Af Amer) > 60 > 60 Glucose 182 H 211 H Calcium 8.0 L 8.4 Magnesium 1.9 01/02/18 18:55 Clean Catch Midstream Urine Culture - Final Staph Coagulase Negative Mixed Urogenital Parvin Assessment & Plan - Diagnosis (1) Ulcerative colitis Qualifiers: Ulcerative colitis location: ulcerative rectosigmoiditis Digestive disease complication type: with rectal bleeding Qualified Code(s): K51.311 - Ulcerative (chronic) rectosigmoiditis with rectal bleeding Is this a current diagnosis for this admission?: Yes Plan: Cont current regimen per hospitalist team, will need steroid taper upon d/c with ultimate transition to current home dosing (2) Iron deficiency anemia due to chronic blood loss Is this a current diagnosis for this admission?: Yes Plan: IV iron given yesterday, would benefit from 1 more dose if pt still admitted for next 24 hours. (3) Malignant melanoma Qualifiers: Melanoma location: upper extremity including shoulder Is this a current diagnosis for this admission?: Yes Plan: Dont know if pt ever would agree for any systemic rx but regardless all systemic approaches for her would involved immunoRx which can worsen active colitis. - Time Time Spent with patient: 35 or more minutes - Inpatient Certification Based on my medical assessment, after consideration of the patient's comorbidities, presenting symptoms, or acuity I expect that the services needed warrant INPATIENT care.: Yes I certify that my determination is in accordance with my understanding of Medicare's requirements for reasonable and necessary INPATIENT services [42 CFR 412.3e].: Yes Medical Necessity: Risk of Complication if Not Cared For in Hospital
[2018-01-05 11:35] LABS: PATH REVIEW PATHOLOGIST REVIEWED
[2018-01-05] MEDS ORDERED: LANSOPRAZOLE 30 MG TAB.RAP.DR PO ONE (12:00)
[2018-01-05] MEDS ORDERED: ONDANSETRON HCL INJ/PF 4 MG/2 ML SDV IV PRN (16:53)
--- NOTE | 2018-01-05 17:06 | PDOC PROGRESS REPORT ---
Subjective Progress Note for:: 01/05/18 Subjective:: Patient continues to feel better. She did have some nausea earlier and had a dose of Phenergan and she is extremely tired from that. Also she did not sleep well last night. Having some gastric reflux. Her stools continue to harden. No obvious blood or diarrhea. No fever or chills. No abdominal pain. Reason For Visit: ULCERATIVE COLITIS FLARE Physical Exam Vital Signs: Temp Pulse Resp BP Pulse Ox 98.0 F 80 20 155/77 H 94 01/05/18 16:13 01/05/18 16:13 01/05/18 16:13 01/05/18 16:13 01/05/18 16:13 Intake & Output 01/04/18 01/05/18 01/06/18 06:59 06:59 06:59 Intake Total 3260.0 5030 1666 Output Total 500 Balance 2760.0 5030 1666 Weight 102.2 kg 109.3 kg General appearance: PRESENT: no acute distress, cooperative, morbidly obese Eye exam: PRESENT: EOMI. ABSENT: conjunctival injection, scleral icterus Mouth exam: PRESENT: moist Respiratory exam: PRESENT: clear to auscultation brisa, unlabored. ABSENT: rales , rhonchi, wheezes Cardiovascular exam: PRESENT: RRR, systolic murmur Pulses: PRESENT: normal radial pulses GI/Abdominal exam: PRESENT: normal bowel sounds, soft. ABSENT: distended, guarding, tenderness Rectal exam: PRESENT: deferred Gentrourinary exam: ABSENT: indwelling catheter Extremities exam: ABSENT: joint swelling, pedal edema Musculoskeletal exam: PRESENT: ambulatory Neurological exam: PRESENT: alert, awake, oriented to person, oriented to place , oriented to situation, CN II-XII grossly intact Psychiatric exam: PRESENT: appropriate affect. ABSENT: anxious Skin exam: PRESENT: dry, intact, warm Results Laboratory Results: 01/04/18 16:30 01/04/18 16:30 01/04/18 01/04/18 16:30 16:30 WBC 38.3 H* RBC 3.49 L Hgb 8.3 L Hct 25.6 L MCV 73 L MCH 23.8 L MCHC 32.5 RDW 18.0 H Plt Count 460 H Sodium 137.3 Potassium 3.8 Chloride 109 H Carbon Dioxide 21 L Anion Gap 7 BUN 11 Creatinine 0.67 Est GFR ( Amer) > 60 Est GFR (Non-Af Amer) > 60 Glucose 211 H Calcium 8.4 Magnesium 1.9 Assessment & Plan - Diagnosis (1) Anemia Qualifiers: Anemia type: iron deficiency Is this a current diagnosis for this admission?: Yes Plan: Patient has acute blood loss anemia. She is receiving her second dose of IV iron today. Appreciate assistance from an substation operator apprentice. Her hemoglobin has remained stable at about 8-1/2 and there is no indication for transfusion at this time. (2) Ulcerative colitis Qualifiers: Ulcerative colitis location: ulcerative rectosigmoiditis Digestive disease complication type: with rectal bleeding Qualified Code(s): K51.311 - Ulcerative (chronic) rectosigmoiditis with rectal bleeding Is this a current diagnosis for this admission?: Yes Plan: She was diagnosed with ulcerative colitis in October. She was prescribed mesalamine and prednisone. She was too afraid of side effects to take those medications and she was admitted here several days ago with bloody diarrhea, syncope, dehydration. She is significantly improved now with IV steroids. We will continue current care with tapering of steroids to orals for discharge home in a day or so. She will need to see her geoscience professor as an outpatient. We are encouraging her to take her mesalamine as prescribed. She will take her prednisone she has decided. (3) Iron deficiency anemia due to chronic blood loss Is this a current diagnosis for this admission?: Yes Plan: IV iron is being administered, second dose today. She also has an acute component with the acute blood loss. (4) Malignant melanoma Qualifiers: Melanoma location: upper extremity including shoulder Is this a current diagnosis for this admission?: Yes Plan: Her oncologist has been following her during the hospitalization. Secondary to active colitis she is not a candidate for treatment at this time. She will be referred back to the oncology clinic as an outpatient. (5) Nausea and vomiting Qualifiers: Vomiting type: unspecified Vomiting Intractability: non-intractable Qualified Code(s): R11.2 - Nausea with vomiting, unspecified Is this a current diagnosis for this admission?: Yes Plan: Resolved. Phenergan made her excessively sleepy and so have discontinued that medication and added Zofran as needed. (6) Syncope Qualifiers: Syncope type: unspecified Qualified Code(s): R55 - Syncope and collapse Is this a current diagnosis for this admission?: Yes Plan: Secondary to dehydration and acute bleeding. With fluid resuscitation and IV steroids the patient has improved significantly. No further syncope. (7) Thrombocytosis Is this a current diagnosis for this admission?: Yes Plan: Improving with IV iron. We will continue to monitor. - Time Time Spent with patient: 25-34 minutes Medications reviewed and adjusted accordingly: Yes Anticipated discharge: Home - Inpatient Certification Based on my medical assessment, after consideration of the patient's comorbidities, presenting symptoms, or acuity I expect that the services needed warrant INPATIENT care.: Yes I certify that my determination is in accordance with my understanding of Medicare's requirements for reasonable and necessary INPATIENT services [42 CFR 412.3e].: Yes Medical Necessity: Need Close Monitoring Due to Risk of Patient Decompensation, Risk of Complication if Not Cared For in Hospital
[2018-01-05 17:24] LABS: HEMATOCRIT 24.2 % (36.0-47.0); MEAN CORPUSCULAR HGB CONC 32.5 g/dL (32.0-36.0); MEAN CORPUSCULAR VOLUME 74 fl (80-97); PLATELET COUNT 389 10^3/uL (150-450); RED BLOOD COUNT 3.28 10^6/uL (3.72-5.28); RED CELL DISTRIBUTION WIDTH 17.8 % (11.5-14.0)
[2018-01-05 17:37] LABS: ANION GAP 5 (5-19); BLOOD UREA NITROGEN 10 mg/dL (7-20); CARBON DIOXIDE 24 mmol/L (22-30); CHLORIDE 108 mmol/L (98-107); GLUCOSE 178 mg/dL (75-110); POTASSIUM 3.5 mmol/L (3.6-5.0); SODIUM 136.7 mmol/L (137-145)
[2018-01-05 17:52] LABS: HEMOGLOBIN 7.9 g/dL (12.0-15.5); WHITE BLOOD COUNT 43.8 10^3/uL (4.0-10.5)
[2018-01-05] MEDS: LANSOPRAZOLE 30 MG TAB.RAP.DR PO SCH (18:24)
[2018-01-06] MEDS: NORMAL SALINE 1000 ML 1,000 ML IV PRN ×2 (00:17→10:40)
[2018-01-06] MEDS: METHYLPREDNISOLONE INJ 40 MG/1 ML SDV IV SCH (05:49)
[2018-01-06] MEDS: LANSOPRAZOLE 30 MG TAB.RAP.DR PO SCH ×2 (05:49→17:35)
--- NOTE | 2018-01-06 08:10 | PDOC PROGRESS REPORT ---
Subjective Progress Note for:: 01/06/18 Subjective:: Had long discussion w/ pt and Dr. Bianchi from hospitalist team. Discussed addition of mesalamine. Pt agrees to this and Dr. Bianchi was considering addition of this as well. Pt notes LE edema so I ordered SD culver for her today Reason For Visit: ULCERATIVE COLITIS FLARE Physical Exam Vital Signs: Temp Pulse Resp BP Pulse Ox 97.9 F 69 18 148/92 H 93 01/06/18 03:53 01/06/18 03:53 01/06/18 03:53 01/06/18 03:53 01/06/18 03:53 Intake & Output 01/05/18 01/06/18 01/07/18 06:59 06:59 06:59 Intake Total 5030 2666 Balance 5030 2666 Weight 109.3 kg 112.8 kg General appearance: PRESENT: no acute distress, well-developed, well-nourished Head exam: PRESENT: atraumatic, normocephalic Eye exam: PRESENT: conjunctiva pink, EOMI, PERRLA. ABSENT: scleral icterus Ear exam: PRESENT: normal external ear exam Mouth exam: PRESENT: moist, tongue midline Neck exam: ABSENT: carotid bruit, JVD, lymphadenopathy, thyromegaly Respiratory exam: PRESENT: clear to auscultation brisa. ABSENT: rales, rhonchi, wheezes Cardiovascular exam: PRESENT: RRR. ABSENT: diastolic murmur, rubs, systolic murmur Pulses: PRESENT: normal dorsalis pedis pul Vascular exam: PRESENT: normal capillary refill GI/Abdominal exam: PRESENT: normal bowel sounds, soft. ABSENT: distended, guarding, mass, organolmegaly, rebound, tenderness Rectal exam: PRESENT: deferred Extremities exam: PRESENT: full ROM. ABSENT: calf tenderness, clubbing, pedal edema Neurological exam: PRESENT: alert, awake, oriented to person, oriented to place , oriented to time, oriented to situation, CN II-XII grossly intact. ABSENT: motor sensory deficit Psychiatric exam: PRESENT: appropriate affect, normal mood. ABSENT: homicidal ideation, suicidal ideation Skin exam: PRESENT: dry, intact, warm. ABSENT: cyanosis, rash Results Laboratory Results: 01/05/18 17:05 01/05/18 17:05 01/05/18 01/05/18 17:05 17:05 WBC 43.8 H* RBC 3.28 L Hgb 7.9 L Hct 24.2 L MCV 74 L MCH 24.0 L MCHC 32.5 RDW 17.8 H Plt Count 389 Sodium 136.7 L Potassium 3.5 L Chloride 108 H Carbon Dioxide 24 Anion Gap 5 BUN 10 Creatinine 0.88 Est GFR ( Amer) > 60 Est GFR (Non-Af Amer) > 60 Glucose 178 H Calcium 8.0 L Assessment & Plan - Diagnosis (1) Ulcerative colitis Qualifiers: Ulcerative colitis location: ulcerative rectosigmoiditis Digestive disease complication type: with rectal bleeding Qualified Code(s): K51.311 - Ulcerative (chronic) rectosigmoiditis with rectal bleeding Is this a current diagnosis for this admission?: Yes Plan: Add mesalamine per hospitalist team today, continue to monitor (2) Iron deficiency anemia due to chronic blood loss Is this a current diagnosis for this admission?: Yes Plan: Slight Hb drop this am, given full dose IV iron, hold on transfusion for now unless hb <7. (3) Malignant melanoma Qualifiers: Melanoma location: upper extremity including shoulder Is this a current diagnosis for this admission?: Yes Plan: Will continue to readdress as outpt but unlikely that pt would agree to any therapy for now. - Time Time Spent with patient: 35 or more minutes Disposition: today spent >35 min in discussion and coordination of care - Inpatient Certification Based on my medical assessment, after consideration of the patient's comorbidities, presenting symptoms, or acuity I expect that the services needed warrant INPATIENT care.: Yes I certify that my determination is in accordance with my understanding of Medicare's requirements for reasonable and necessary INPATIENT services [42 CFR 412.3e].: Yes Medical Necessity: Risk of Complication if Not Cared For in Hospital
[2018-01-06] MEDS: ACETAMINOPHEN 325 MG TABLET PO PRN ×2 (10:38→20:28)
[2018-01-06 11:58] LABS: HEMATOCRIT 22.8 % (36.0-47.0); MEAN CORPUSCULAR HEMOGLOBIN 24.2 pg (27.0-33.4); MEAN CORPUSCULAR HGB CONC 32.6 g/dL (32.0-36.0); MEAN CORPUSCULAR VOLUME 74 fl (80-97); PLATELET COUNT 359 10^3/uL (150-450); RED BLOOD COUNT 3.07 10^6/uL (3.72-5.28); RED CELL DISTRIBUTION WIDTH 18.5 % (11.5-14.0)
[2018-01-06 12:24] LABS: HEMOGLOBIN 7.4 g/dL (12.0-15.5)
[2018-01-06 12:25] LABS: WHITE BLOOD COUNT 33.4 10^3/uL (4.0-10.5)
[2018-01-06] MEDS: PREDNISONE 20 MG TABLET PO SCH (17:35)
[2018-01-06] MEDS: MESALAMINE 400 MG CAPSULE.DR PO SCH (17:35)
--- NOTE | 2018-01-06 17:52 | PDOC PROGRESS REPORT ---
Subjective Progress Note for:: 01/06/18 Subjective:: Patient has had no rectal bleeding. Her stools are starting to form. She slept well last night. Nausea and vomiting are resolved. She is able to eat a little bit more, Prevacid seems to be helping with her reflux. No fevers or chills. No dysuria. The patient is willing to start mesalamine and this observed setting, she is extremely afraid of the side effects of mesalamine and that so she has not taken it and that is why her ulcerative colitis has gotten so bad. She has spoken to both myself and Dr. Duarte about it. Reason For Visit: ULCERATIVE COLITIS FLARE Physical Exam Vital Signs: Temp Pulse Resp BP Pulse Ox 98.3 F 74 16 146/80 H 97 01/06/18 16:00 01/06/18 16:00 01/06/18 16:00 01/06/18 16:00 01/06/18 16:00 Intake & Output 01/05/18 01/06/18 01/07/18 06:59 06:59 06:59 Intake Total 5030 2666 1720 Balance 5030 2666 1720 Weight 109.3 kg 112.8 kg General appearance: PRESENT: no acute distress, cooperative, obese Eye exam: PRESENT: EOMI. ABSENT: conjunctival injection, scleral icterus Ear exam: PRESENT: normal external ear exam Mouth exam: PRESENT: moist Respiratory exam: PRESENT: clear to auscultation brisa, unlabored. ABSENT: rales , rhonchi, wheezes Cardiovascular exam: PRESENT: RRR, systolic murmur Pulses: PRESENT: normal radial pulses GI/Abdominal exam: PRESENT: normal bowel sounds, soft, tenderness. ABSENT: distended, guarding Rectal exam: PRESENT: deferred Extremities exam: ABSENT: pedal edema Musculoskeletal exam: PRESENT: ambulatory. ABSENT: deformity Neurological exam: PRESENT: alert, awake, oriented to person, oriented to place , oriented to situation, CN II-XII grossly intact Psychiatric exam: PRESENT: anxious, appropriate affect Skin exam: PRESENT: dry, intact, warm Results Laboratory Results: 01/06/18 11:44 01/05/18 17:05 01/05/18 01/05/18 01/06/18 17:05 17:05 11:44 WBC 43.8 H* 33.4 H* RBC 3.28 L 3.07 L Hgb 7.9 L 7.4 L Hct 24.2 L 22.8 L MCV 74 L 74 L MCH 24.0 L 24.2 L MCHC 32.5 32.6 RDW 17.8 H 18.5 H Plt Count 389 359 Sodium 136.7 L Potassium 3.5 L Chloride 108 H Carbon Dioxide 24 Anion Gap 5 BUN 10 Creatinine 0.88 Est GFR ( Amer) > 60 Est GFR (Non-Af Amer) > 60 Glucose 178 H Calcium 8.0 L 01/02/18 11:50 Stool - Stool - Final 01/02/18 11:50 Stool - Stool Stool Culture - Final Yeast, Not Cindy Albicans Assessment & Plan - Diagnosis (1) Anemia Qualifiers: Anemia type: iron deficiency Is this a current diagnosis for this admission?: Yes Plan: Due to both chronic and acute blood loss. She has received 2 doses of IV iron. Her gross bleeding per rectum has stopped. Hemoglobin is down to 7.4. We will transfuse if hemoglobin drops below 7. (2) Ulcerative colitis Qualifiers: Ulcerative colitis location: ulcerative rectosigmoiditis Digestive disease complication type: with rectal bleeding Qualified Code(s): K51.311 - Ulcerative (chronic) rectosigmoiditis with rectal bleeding Is this a current diagnosis for this admission?: Yes Plan: Significantly improved on high-dose IV steroids. I have been tapering her steroids down over the last few days and she is now on 60 mg p.o. twice daily. Patient has also agreed to start mesalamine. [facility] and I will start her on that dosing, mesalamine 1200 mg p.o. twice daily. She feels more comfortable starting this in an observed setting. (3) Iron deficiency anemia due to chronic blood loss Is this a current diagnosis for this admission?: Yes Plan: Anemia above. Patient is being followed by Dr. Duarte. I appreciate his assistance. (4) Malignant melanoma Qualifiers: Melanoma location: upper extremity including shoulder Is this a current diagnosis for this admission?: Yes Plan: She is not a treatment candidate now. She will see Dr. Duarte as an outpatient. (5) Nausea and vomiting Qualifiers: Vomiting type: unspecified Vomiting Intractability: non-intractable Qualified Code(s): R11.2 - Nausea with vomiting, unspecified Is this a current diagnosis for this admission?: Yes Plan: Resolved. Phenergan has been discontinued, she got very sleepy with Phenergan. She has as needed Zofran should she need it. She is able to eat and drink well is able to hydrate herself at this point so I stopped IV fluids. (6) Syncope Qualifiers: Syncope type: unspecified Qualified Code(s): R55 - Syncope and collapse Is this a current diagnosis for this admission?: Yes Plan: This was secondary to dehydration and significant GI bleeding. Once her resuscitation started she had no further syncope. (7) Thrombocytosis Is this a current diagnosis for this admission?: Yes Plan: As has resolved with treatment of acute problems and with treatment of anemia with iron. - Time Time Spent with patient: 25-34 minutes Medications reviewed and adjusted accordingly: Yes - Inpatient Certification Based on my medical assessment, after consideration of the patient's comorbidities, presenting symptoms, or acuity I expect that the services needed warrant INPATIENT care.: Yes I certify that my determination is in accordance with my understanding of Medicare's requirements for reasonable and necessary INPATIENT services [42 CFR 412.3e].: Yes Medical Necessity: Need Close Monitoring Due to Risk of Patient Decompensation, Risk of Complication if Not Cared For in Hospital
[2018-01-07 05:51] LABS: HEMATOCRIT 21.6 % (36.0-47.0); MEAN CORPUSCULAR HGB CONC 32.2 g/dL (32.0-36.0); MEAN CORPUSCULAR VOLUME 74 fl (80-97); PLATELET COUNT 344 10^3/uL (150-450); RED BLOOD COUNT 2.91 10^6/uL (3.72-5.28); RED CELL DISTRIBUTION WIDTH 18.3 % (11.5-14.0); WHITE BLOOD COUNT 25.4 10^3/uL (4.0-10.5)
[2018-01-07 06:02] LABS: ANION GAP 6 (5-19); BLOOD UREA NITROGEN 10 mg/dL (7-20); CALCIUM 7.8 mg/dL (8.4-10.2); CARBON DIOXIDE 28 mmol/L (22-30); CHLORIDE 105 mmol/L (98-107); GLUCOSE 138 mg/dL (75-110); POTASSIUM 3.5 mmol/L (3.6-5.0); SODIUM 138.9 mmol/L (137-145)
[2018-01-07] MEDS: LANSOPRAZOLE 30 MG TAB.RAP.DR PO SCH ×2 (06:30→18:59)
--- NOTE | 2018-01-07 08:06 | PDOC PROGRESS REPORT ---
Subjective Progress Note for:: 01/07/18 Subjective:: No bloody BMs over last 24 hours, walked yesterday but was symptomatic, hb down to 7 today and I discussed blood transfusion, she agreed. Tolerated mesalamine well yesterday Reason For Visit: ULCERATIVE COLITIS FLARE Physical Exam Vital Signs: Temp Pulse Resp BP Pulse Ox 98.3 F 74 18 143/74 H 96 01/07/18 00:00 01/07/18 00:00 01/07/18 00:00 01/07/18 00:00 01/07/18 00:00 Intake & Output 01/06/18 01/07/18 01/08/18 06:59 06:59 06:59 Intake Total 2666 2080 Output Total 500 Balance 2666 1580 Weight 112.8 kg 112 kg General appearance: PRESENT: no acute distress, well-developed, well-nourished Head exam: PRESENT: atraumatic, normocephalic Eye exam: PRESENT: conjunctiva pink, EOMI, PERRLA. ABSENT: scleral icterus Ear exam: PRESENT: normal external ear exam Mouth exam: PRESENT: moist, tongue midline Neck exam: ABSENT: carotid bruit, JVD, lymphadenopathy, thyromegaly Respiratory exam: PRESENT: clear to auscultation brisa. ABSENT: rales, rhonchi, wheezes Cardiovascular exam: PRESENT: RRR. ABSENT: diastolic murmur, rubs, systolic murmur Pulses: PRESENT: normal dorsalis pedis pul Vascular exam: PRESENT: normal capillary refill GI/Abdominal exam: PRESENT: normal bowel sounds, soft. ABSENT: distended, guarding, mass, organolmegaly, rebound, tenderness Rectal exam: PRESENT: deferred Extremities exam: PRESENT: full ROM. ABSENT: calf tenderness, clubbing, pedal edema Neurological exam: PRESENT: alert, awake, oriented to person, oriented to place , oriented to time, oriented to situation, CN II-XII grossly intact. ABSENT: motor sensory deficit Psychiatric exam: PRESENT: appropriate affect, normal mood. ABSENT: homicidal ideation, suicidal ideation Skin exam: PRESENT: dry, intact, warm. ABSENT: cyanosis, rash Results Laboratory Results: 01/07/18 04:54 01/07/18 04:54 01/06/18 01/07/18 01/07/18 11:44 04:54 04:54 WBC 33.4 H* 25.4 H RBC 3.07 L 2.91 L Hgb 7.4 L 7.0 L Hct 22.8 L 21.6 L MCV 74 L 74 L MCH 24.2 L 24.0 L MCHC 32.6 32.2 RDW 18.5 H 18.3 H Plt Count 359 344 Sodium 138.9 Potassium 3.5 L Chloride 105 Carbon Dioxide 28 Anion Gap 6 BUN 10 Creatinine 0.68 Est GFR ( Amer) > 60 Est GFR (Non-Af Amer) > 60 Glucose 138 H Calcium 7.8 L 01/02/18 11:50 Stool - Stool - Final 01/02/18 11:50 Stool - Stool Stool Culture - Final Yeast, Not Cindy Albicans Assessment & Plan - Diagnosis (1) Ulcerative colitis Qualifiers: Ulcerative colitis location: ulcerative rectosigmoiditis Digestive disease complication type: with rectal bleeding Qualified Code(s): K51.311 - Ulcerative (chronic) rectosigmoiditis with rectal bleeding Is this a current diagnosis for this admission?: Yes Plan: Improved, tolerated mesalamine well, oral pred, will need pred taper on d/c has mesalamine and pred at home also. Discussed d/c tomorrow after blood today. Pt wants to d/c in pm tomorrow when she can get a ride home. (2) Iron deficiency anemia due to chronic blood loss Is this a current diagnosis for this admission?: Yes Plan: Symptomatic, hb drop to 7 today, plan for 2 units prbcs today w/ premeds and lasix (3) Malignant melanoma Qualifiers: Melanoma location: upper extremity including shoulder Is this a current diagnosis for this admission?: Yes Plan: will only be able to consider treatment after colitis controlled but pt thus far not agreeable to any conventional therapy - Time Time Spent with patient: 35 or more minutes - Inpatient Certification Based on my medical assessment, after consideration of the patient's comorbidities, presenting symptoms, or acuity I expect that the services needed warrant INPATIENT care.: Yes I certify that my determination is in accordance with my understanding of Medicare's requirements for reasonable and necessary INPATIENT services [42 CFR 412.3e].: Yes Medical Necessity: Risk of Complication if Not Cared For in Hospital
[2018-01-07] MEDS ORDERED: DIPHENHYDRAMINE HCL 25 MG CAPSULE PO PRN (08:27)
[2018-01-07] MEDS ORDERED: ACETAMINOPHEN 325 MG TABLET PO PRN (08:28)
[2018-01-07] MEDS ORDERED: FUROSEMIDE INJ/PF 20 MG/2 ML SDV IV PRN (08:29)
[2018-01-07] MEDS: PREDNISONE 20 MG TABLET PO SCH ×2 (10:24→18:59)
[2018-01-07] MEDS: MESALAMINE 400 MG CAPSULE.DR PO SCH ×2 (10:25→18:59)
[2018-01-07] MEDS: ACETAMINOPHEN 325 MG TABLET PO PRN (11:05)
--- NOTE | 2018-01-07 13:46 | PDOC PROGRESS REPORT ---
Subjective Progress Note for:: 01/07/18 Subjective:: 57-year-old white female with known melanoma presents with Crohn's colitis exacerbation. [facility] this year was given prescription for [facility] however to have not started the medication. She is improved on steroids. Case discussed with oncologist and transfusion will occur today. Patient tolerating meals abdominal pain improved Reason For Visit: ULCERATIVE COLITIS FLARE Physical Exam Vital Signs: Temp Pulse Resp BP Pulse Ox 97.7 F 79 17 153/81 H 97 01/07/18 12:30 01/07/18 12:30 01/07/18 12:30 01/07/18 12:30 01/07/18 12:30 Intake & Output 01/06/18 01/07/18 01/08/18 06:59 06:59 06:59 Intake Total 2666 2080 0 Output Total 500 Balance 2666 1580 0 Weight 112.8 kg 112 kg General appearance: PRESENT: no acute distress, well-developed, well-nourished Neck exam: ABSENT: carotid bruit, JVD, lymphadenopathy, thyromegaly Respiratory exam: PRESENT: clear to auscultation brisa. ABSENT: rales, rhonchi, wheezes Cardiovascular exam: PRESENT: RRR. ABSENT: diastolic murmur, rubs, systolic murmur GI/Abdominal exam: PRESENT: normal bowel sounds, soft, tenderness - Minimal periumbilical. ABSENT: distended, guarding, mass, organolmegaly, rebound Extremities exam: PRESENT: full ROM. ABSENT: calf tenderness, clubbing, pedal edema Results Laboratory Results: 01/07/18 04:54 01/07/18 04:54 01/07/18 01/07/18 01/07/18 04:54 04:54 09:52 WBC 25.4 H RBC 2.91 L Hgb 7.0 L Hct 21.6 L MCV 74 L MCH 24.0 L MCHC 32.2 RDW 18.3 H Plt Count 344 Sodium 138.9 Potassium 3.5 L Chloride 105 Carbon Dioxide 28 Anion Gap 6 BUN 10 Creatinine 0.68 Est GFR ( Amer) > 60 Est GFR (Non-Af Amer) > 60 Glucose 138 H Calcium 7.8 L Blood Type B POSITIVE Antibody Screen NEGATIVE 01/02/18 11:50 Stool - Stool - Final 01/02/18 11:50 Stool - Stool Stool Culture - Final Yeast, Not Cindy Albicans Assessment & Plan - Diagnosis (1) Ulcerative colitis Qualifiers: Ulcerative colitis location: ulcerative rectosigmoiditis Digestive disease complication type: with rectal bleeding Qualified Code(s): K51.311 - Ulcerative (chronic) rectosigmoiditis with rectal bleeding Is this a current diagnosis for this admission?: Yes Plan: Continue mesalamine and steroids. Patient has medications at home. We will plan for her to resume her mesalamine and give patient a tapering steroid dose. She is to follow-up with her primary care doctor at the [facility] upon discharge. (2) Hypothyroid Is this a current diagnosis for this admission?: Yes Plan: On replacement therapy no change in dose (3) Iron deficiency anemia due to chronic blood loss Is this a current diagnosis for this admission?: Yes Plan: Patient has been given IV iron and will get 2 additional units today. Will be discharged on supplemental p.o. iron. (4) Malignant melanoma Qualifiers: Melanoma location: upper extremity including shoulder Is this a current diagnosis for this admission?: Yes Plan: Follow-up with oncology post discharge - Time Time Spent with patient: 25-34 minutes Anticipated discharge: Home
[2018-01-08] MEDS: LANSOPRAZOLE 30 MG TAB.RAP.DR PO SCH (08:31)
[2018-01-08 09:03] LABS: HEMATOCRIT 29.9 % (36.0-47.0); MEAN CORPUSCULAR HEMOGLOBIN 26.2 pg (27.0-33.4); MEAN CORPUSCULAR HGB CONC 33.4 g/dL (32.0-36.0); PLATELET COUNT 310 10^3/uL (150-450); RED BLOOD COUNT 3.82 10^6/uL (3.72-5.28); RED CELL DISTRIBUTION WIDTH 19.7 % (11.5-14.0); WHITE BLOOD COUNT 24.6 10^3/uL (4.0-10.5)
[2018-01-08 09:11] LABS: MEAN CORPUSCULAR VOLUME 79 fl (80-97)
[2018-01-08 09:33] LABS: ABSOLUTE LYMPHOCYTES# (MANUAL) 4.4 10^3/uL (0.5-4.7); ABSOLUTE MONOCYTES # (MANUAL) 1.2 10^3/uL (0.1-1.4); ABSOLUTE NEUTROPHILS# (MANUAL) 18.7 10^3/uL (1.7-8.2); BAND NEUTROPHILS % (MANUAL) 4 % (3-5); BASOPHILS % (MANUAL) 0 % (0-2); EOSINOPHILS % (MANUAL) 1 % (0-6); LYMPHOCYTES % (MANUAL) 18 % (13-45); MONOCYTES % (MANUAL) 5 % (3-13); NUCLEATED RED BLOOD CELLS 1 /100 WBC (0); SEGMENTED NEUTROPHILS % (MAN) 66 % (42-78); TOTAL CELLS COUNTED 100
[2018-01-08 09:43] LABS: ANISOCYTOSIS 2+; HYPOCHROMASIA 1+; METAMYELOCYTES % (MANUAL) 3 % (0); MYELOCYTES % (MANUAL) 3 % (0); OVALOCYTES SLIGHT; PLATELET COMMENT ADEQUATE; POIKILOCYTOSIS SLIGHT; POLYCHROMASIA 1+; TOXIC GRANULATION SLIGHT; TOXIC VACUOLATION PRESENT
[2018-01-08] MEDS: MESALAMINE 400 MG CAPSULE.DR PO SCH (11:09)
[2018-01-08] MEDS: PREDNISONE 20 MG TABLET PO SCH (11:09)
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
[2018-01-08 12:06] VITALS: BP 134/72
[2018-01-11 17:20] LABS: PATH REVIEW PATHOLOGIST REVIEWED
== END 2018-01-08 13:01 | disposition home or self-care (01) | DRG 386 ==
LOC: ER 18:58 → EH 01-02 01:34 → OBSVTOIN 01-02 01:51 → 4S 01-02 16:37 → 2S 01-04 09:18
PROVIDERS: ADMIT Internal Medicine; ATTEND Internal Medicine
PROC: 30233N1 Transfusion of Nonautologous Red Blood Cells into Peripheral Vein, Percutaneous Approach (ICD-10-PCS; principal; 2018-01-07)
DX: K51.311 Ulcerative (chronic) rectosigmoiditis with rectal bleeding (principal); C79.9 Secondary malignant neoplasm of unspecified site; E03.9 Hypothyroidism, unspecified; D50.0 Iron deficiency anemia secondary to blood loss (chronic); M19.90 Unspecified osteoarthritis, unspecified site; E86.0 Dehydration; F32.9 Major depressive disorder, single episode, unspecified; C43.60 Malignant melanoma of unspecified upper limb, including shoulder; K21.9 Gastro-esophageal reflux disease without esophagitis; Z60.2 Problems related to living alone; Z79.899 Other long term (current) drug therapy; Z53.29 Procedure and treatment not carried out because of patient's decision for other reasons; Z79.52 Long term (current) use of systemic steroids
CPT/HCPCS: 36415; 36430; 80048; 80053; 81001; 82607; 82728; 82746; 83540; 83550; 83690; 83735; 84100; 84484; 85025; 85027; 85045; 85610; 85730; 86850; 86900; 86901; 86920; 87045; 87086; 87205; 87493; 93005; 93010; 96361; 96365; 96375; 99291; J1750; J1940; J2405; J2550; J2920; J3490; J7040; J7512; P9016; S0164

== ENCOUNTER → 2018-03-28 | Outpatient (CLI) | payer OTHER ==
--- NOTE | 2018-03-30 08:59 | RADIOLOGY REPORT (SQ) ---
EXAM DESCRIPTION: PET CT WHOLE BODY COMPLETED DATE/TIME: 03/28/2018 10:22 pm REASON FOR STUDY: MELANOMA OF THE TRUNK C43.59 MALIGNANT MELANOMA OF OTHER PART OF TRUNK COMPARISON: Prior PET-CT 11/10/2017, 07/07/2017 RADIONUCLIDE AND DOSE: 11.1 mCi F18 FDG The route of agent administration: Intravenous FASTING BLOOD SUGAR: 94 mg/dl CONTRAST TYPE AND DOSE: No CT contrast given. TECHNIQUE: Blood glucose level was verified. Above dose of FDG was injected intravenously. 2-D seg mented attenuation correction images were obtained through the entire body. Noncontrast CT images we re obtained for attenuation correction and fusion with emission images. CT images were performed wit hout oral or intravenous contrast and are not sensitive for parenchymal lesions. A series of overlap ping emission PET images were obtained. Images reviewed and manipulated at independent work station by the radiologist. Images stored on PACS. LIMITATIONS: None. FINDINGS: HEAD AND NECK: No areas of abnormal metabolic activity in the soft tissues of the head and neck. CHEST: No areas of abnormal metabolic activity in the chest. ABDOMEN AND PELVIS: No areas of abnormal metabolic activity in the abdomen or pelvis. Expected physi ologic activity is present in the genitourinary system and bowel. LOWER EXTREMITIES: No areas of abnormal metabolic activity in the soft tissues of the lower extremiti es. BONES: No abnormal metabolic activity in the visualized skeleton. ADDITIONAL CT FINDINGS: No additional significant findings on the noncontrast CT images. OTHER: No other significant findings. IMPRESSION: No hypermetabolic lesions worrisome for recurrent melanoma TECHNICAL DOCUMENTATION: JOB ID: [id number] [employer]- All Rights Reserved Reading location - IP/workstation name: [email or web address]
== END ==
LOC: RAD 16:15
PROVIDERS: ATTEND Internal Medicine
DX: C43.59 Malignant melanoma of other part of trunk (principal)
CPT/HCPCS: 78816; A9552

== ENCOUNTER 2018-06-05 06:56 | Emergency (ER) | payer OTHER ==
[2018-06-05 07:57] LABS: ABSOLUTE BASOPHILS # (AUTO) 0.1 10^3/uL (0.0-0.2); ABSOLUTE EOSINOPHILS # (AUTO) 0.3 10^3/uL (0.0-0.6); ABSOLUTE LYMPHOCYTES (AUTO) 1.8 10^3/uL (0.5-4.7); ABSOLUTE MONOCYTES (AUTO) 0.7 10^3/uL (0.1-1.4); BASOPHILS % (AUTO) 0.6 % (0-2); HEMATOCRIT 41.2 % (36.0-47.0); HEMOGLOBIN 14.5 g/dL (12.0-15.5); LYMPHOCYTES % (AUTO) 20.3 % (13-45); MEAN CORPUSCULAR HEMOGLOBIN 28.9 pg (27.0-33.4); MEAN CORPUSCULAR HGB CONC 35.1 g/dL (32.0-36.0); MEAN CORPUSCULAR VOLUME 82 fl (80-97); MONOCYTES % (AUTO) 7.6 % (3-13); PLATELET COUNT 387 10^3/uL (150-450); RED BLOOD COUNT 5.01 10^6/uL (3.72-5.28); RED CELL DISTRIBUTION WIDTH 13.6 % (11.5-14.0); SEGMENTED NEUTROPHILS % (AUTO) 68.5 % (42-78); TOTAL CELLS COUNTED % (AUTO) 100 %; WHITE BLOOD COUNT 8.7 10^3/uL (4.0-10.5)
[2018-06-05 08:38] LABS: APPEARANCE,URINE SLIGHTLY-CLOUDY; BILIRUBIN,URINE NEGATIVE (NEGATIVE); COLOR,URINE YELLOW; GLUCOSE, URINE NEGATIVE (NEGATIVE); KETONES,URINE NEGATIVE (NEGATIVE); LEUKOCYTE ESTERASE,URINE SMALL (NEGATIVE); NITRITE,URINE NEGATIVE (NEGATIVE); PROTEIN,URINE NEGATIVE (NEGATIVE); URINE SPECIFIC GRAVITY 1.023; UROBILINOGEN,URINE NEGATIVE mg/dL (<2.0)
[2018-06-05] MEDS ORDERED: METHYLPREDNISOLONE INJ 125 MG/2 ML SDV IV ONE (08:43)
[2018-06-05] MEDS ORDERED: NORMAL SALINE 1000 ML 1,000 ML IV ONE (08:43)
[2018-06-05] MEDS ORDERED: KETOROLAC TROMETHAMINE INJ/PF 30 MG/1 ML SDV IV ONE (08:43)
[2018-06-05 09:39] LABS: ALANINE AMINOTRANSFERASE 25 U/L (9-52); ALBUMIN 4.2 g/dL (3.5-5.0); ALKALINE PHOSPHATASE 95 U/L (38-126); ANION GAP 11 (5-19); ASPARTATE AMINO TRANSFERASE 20 U/L (14-36); BILIRUBIN,DIRECT 0.3 mg/dL (0.0-0.4); BILIRUBIN,TOTAL 0.7 mg/dL (0.2-1.3); BLOOD UREA NITROGEN 11 mg/dL (7-20); C-REACTIVE PROTEIN 29.8 mg/L (<10.0); CALCIUM 9.5 mg/dL (8.4-10.2); CARBON DIOXIDE 23 mmol/L (22-30); CHLORIDE 107 mmol/L (98-107); GLUCOSE 124 mg/dL (75-110); LIPASE 442.6 U/L (23-300); POTASSIUM 4.1 mmol/L (3.6-5.0); SODIUM 140.6 mmol/L (137-145); TOTAL PROTEIN 6.8 g/dL (6.3-8.2)
[2018-06-05] MEDS ORDERED: DOXYCYCLINE HYCLATE 100 MG TABLET PO ONE (11:08)
[2018-06-05 11:22] VITALS: BP 149/81
--- NOTE | 2018-06-09 07:38 | ER Document Report ---
Entered by JOSH GOVEA SCRIBE 06/05/18 0843 Acting as scribe for:MENDOZA WALTERS MD ED General - General Chief Complaint: Abdominal Pain Stated Complaint: ABDOMINAL PAIN Time Seen by Provider: 06/05/18 08:27 Primary Care Provider: CLAUDETTE ZEE MD [Primary Care Provider] - Follow up as needed Mode of Arrival: Ambulatory Information source: Patient Notes: Patient is a 58-year-old female with ulcerative colitis who presents to the emergency department today with complaints of a 2-1/2-week history of intraoral lesions which is a "sign for her that she is beginning to have a flare of her ulcerative colitis "". Patient states that about 4 weeks ago she was having ear and throat pain so she went to her primary care physician but this is now well. Patient mentions that 3 days ago she began developing right-sided flank pain but denies any dysuria. The patient was last admitted for ulcerative colitis flare from January 02 through the January 08 and was sent home on an extensive prednisone dose TRAVEL OUTSIDE OF THE [place] IN LAST 30 DAYS: No - Related Data Allergies/Adverse Reactions: No Known Allergies Allergy (Verified 01/01/18 18:59) Past Medical History - Social History Smoking Status: Never Smoker Family History: Reviewed & Not Pertinent Patient has suicidal ideation: No Patient has homicidal ideation: No Endocrine Medical History: Reports: Hx Hypothyroidism Renal/ Medical History: Denies: Hx Peritoneal Dialysis GI Medical History: Reports: Hx Ulcerative Colitis Musculoskeletal Medical History: Reports Hx Arthritis Psychiatric Medical History: Denies: Hx Depression Past Surgical History: Reports: Hx Orthopedic Surgery Review of Systems - Review of Systems Constitutional: No symptoms reported EENT: See HPI, Other - mouth sores Cardiovascular: No symptoms reported Respiratory: No symptoms reported Gastrointestinal: denies: Abdominal pain, Black stools, Rectal bleeding Genitourinary: See HPI, Flank pain - right. denies: Dysuria Female Genitourinary: No symptoms reported Musculoskeletal: No symptoms reported Skin: No symptoms reported Hematologic/Lymphatic: No symptoms reported Neurological/Psychological: No symptoms reported -: Yes All other systems reviewed and negative Physical Exam - Vital signs Vitals: Temp Pulse Resp BP Pulse Ox 98.2 F 100 16 138/87 H 97 06/05/18 07:03 06/05/18 07:03 06/05/18 07:03 06/05/18 07:03 06/05/18 07:03 - Notes Notes: Physical Exam: General: Alert, appears well. HEENT: Normocephalic. Atraumatic. PERRL. Extraocular movements intact. Oropharynx clear. Intraoral lesions consistent with apthous ulcers under the tongue at the base of the mouth bilaterally. The tongue Neck: Supple. Anterior cervical neck tenderness with palpation over the area where the aphthous ulcers are located. Respiratory: No respiratory distress. Clear and equal breath sounds bilaterally. Right posterior rib tenderness with palpation. Cardiovascular: Regular rate and rhythm. Abdominal: Obese. Non-tender. No distension. Normal Bowel Sounds. Back: Exquisite tenderness with palpation over the right lateral lumbar paraspinal musculature. No deformity or step off. Extremities: Moves all four extremities. Upper extremities: Normal inspection. Normal ROM. Lower extremities: Normal inspection. No edema. Normal ROM. Neurological: Normal cognition. AAOx4. Normal speech. Psychological: Normal affect. Normal Mood. Skin: Warm. Dry. Normal color. Course - Vital Signs Vital signs: Temp Pulse Resp BP Pulse Ox 98.2 F 100 16 138/87 H 97 06/05/18 07:03 06/05/18 07:03 06/05/18 07:03 06/05/18 07:03 06/05/18 07:03 - Laboratory Result Diagrams: 06/05/18 07:46 06/05/18 09:00 Laboratory results interpreted by me: 06/05/18 06/05/18 08:04 09:00 Glucose 124 H C-Reactive Protein 29.8 H Lipase 442.6 H Urine Blood LARGE H Ur Leukocyte Esterase SMALL H Discharge - Discharge Clinical Impression: Glossitis, Stomatitis, Aphthous ulcer of mouth, Flank pain Urinary tract infection Qualifiers: Urinary tract infection type: site unspecified Hematuria presence: with hematuria Qualified Code(s): N39.0 - Urinary tract infection, site not specified; R31.9 - Hematuria, unspecified Condition: Stable Disposition: HOME, SELF-CARE Additional Instructions: Flank Pain: We weren't able to prove an exact cause for your flank pain. Pain in the flank can be caused by a muscle strain or spasm. Sometimes a kidney stone causes pain, but can't be found on our tests. Infection in the kidney should be evident on a urine test. Early shingles can occasionally cause flank pain, without the rash that proves the diagnosis. On rare occasions, disease of the pancreas, aorta, spleen, or colon can create pain in the flank. At this time, there's no evidence of a dangerous condition, and it seems safe for you to be at home. If the pain goes away and does not come back, no further testing will be needed. If pain persists, or becomes more severe, we may need to repeat some tests or order additional new testing. Blood in the urine, urgency to urinate frequently, and pain that radiates to the groin can indicate a kidney stone. Fever may mean that the pain is due to infection, either of the kidney or the colon (diverticulitis). If your pain is early shingles, you should develop an eruption of blisters in the painful area within a few days. Call the doctor or return if you have pain that is spreading or becoming more severe, pain that does not resolve with time, fever, or any other new symptoms. Urinary Tract Infection: Your evaluation indicates that you have a urinary tract infection. This is due to germs growing in the bladder. This is a common problem. This infection usually responds quickly to antibiotics. Your antibiotic should be taken exactly as prescribed. Drink plenty of fluids -- three to four quarts a day. Occasionally, a bladder anesthetic will be prescribed to help stop the feeling of urgency until the antibiotic has a chance to clear the infection. This may cause your urine to be dark orange. Certain urine infections require a culture. If the doctor obtained a culture, the results will be back in two days. You should call to see if a change in treatment is needed. A repeat urinalysis after you finish treatment is often recommended. The physician will let you know if further testing is required. Call the doctor if you develop fever, chills, flank pain, inability to urinate, or blood in the urine. Viral Glossitis with Aphthous Ulcers: Your physical exam suggests that the sores on and under your tongue are due to a viral infection. You will be placed on an antibiotic that provides good coverage for your urinary tract infection, and will also prevent the ulcers in your mouth from becoming infected. Take the medications as prescribed. Drink lots of fluids. Avoid spicy and taking the foods and liquids that will irritate the ulcers in your mouth. Eat a soft diet. Do oral rinses with warm salt water a few times daily. Follow-up with your primary care provider this coming week if not improving. RETURN TO THE EMERGENCY ROOM IF ANY NEW OR WORSENING SYMPTOMS. Prescriptions: Doxycycline Hyclate 100 mg PO BID #14 tablet. Prednisone [Deltasone 10 mg Tablet] 10 mg PO ASDIR PRN #21 tablet PRN Reason: Referrals: CLAUDETTE ZEE MD [Primary Care Provider] - Follow up as needed I personally performed the services described in the documentation, reviewed and edited the documentation which was dictated to the scribe in my presence, and it accurately records my words and actions.
== END 2018-06-05 11:24 | disposition home or self-care (01) ==
LOC: ER 06:56
DX: K12.0 Recurrent oral aphthae (principal); K14.0 Glossitis; N39.0 Urinary tract infection, site not specified; R31.9 Hematuria, unspecified; Z87.19 Personal history of other diseases of the digestive system
CPT/HCPCS: 99285; 96361; 96374; 96375; 36415; 87086; 83690; 83735; 85025; 85652; 86140; 80053; 81001; J2930; J1885; J7030

== ENCOUNTER 2018-06-12 05:36 | Emergency (ER) | payer OTHER ==
[2018-06-12] MEDS ORDERED: NORMAL SALINE 1000 ML 1,000 ML IV ONE (06:12)
[2018-06-12] MEDS ORDERED: ONDANSETRON HCL INJ/PF 4 MG/2 ML SDV IV ONE (06:13)
[2018-06-12] MEDS ORDERED: MORPHINE SULFATE 10 MG/ML INJ IV ONE (06:13)
--- NOTE | 2018-06-12 06:16 | ER Document Report ---
ED General - General Chief Complaint: Back Pain Stated Complaint: LOWER RIGHT BACK PIAN Time Seen by Provider: 06/12/18 06:02 Primary Care Provider: YARA,NOEL [Primary Care Provider] - Follow up as needed Notes: Patient is a 58-year-old female that presents to the emergency department for chief complaint of right flank pain. Patient reports having pain in her right lower back and flank over the past 10 days. She states she did come in last week, was having the pain then, was treated with pain medication she reports, and at that time she was having ulcers in her mouth, which are treated as well and that has since improved. She states she is try to take Aleve for the pain but it is not helping so she decided to come to the emergency department. She states it is mainly located in the right flank and wraps around towards the anterior portion of the right abdomen she currently rates her pain as a 7 out of 10 describes as constant and aching and occasionally sharp. She is had associated nausea no vomiting. Denies fevers, chills, night sweats, chest pain, shortness of breath or difficulty breathing. Denies any associated diarrhea. Past Medical History: Ulcerative colitis, anemia, hypothyroidism Past Surgical History: Melanoma resection Social History: Denies tobacco, alcohol or drug use. Family History: Reviewed and noncontributory for presenting illness Allergies: Reviewed, see documented allergy list. REVIEW OF SYSTEMS: Other than noted above, the 12 point review of systems was reviewed with the patient and were negative, all pertinent findings are included in the HPI. PHYSICAL EXAMINATION: Vital signs reviewed, nursing noted reviewed. GENERAL: Obese female, appears uncomfortable, but in no immediate distress. HEAD: Atraumatic, normocephalic. EYES: Eyes appear normal, extraocular movements intact, sclera anicteric, conjunctiva are normal. ENT: nares patent, oropharynx clear without exudates. Moist mucous membranes. NECK: Normal range of motion, supple without lymphadenopathy LUNGS: Breath sounds clear to auscultation bilaterally and equal. No wheezes rales or rhonchi. HEART: Regular rate and rhythm without murmurs ABDOMEN: Soft, obese, there is mild right CVA tenderness, and right lower quadrant tenderness with palpation, normoactive bowel sounds. No rebound, guarding, or rigidity. No masses appreciated. EXTREMITIES: Nontender, good range of motion, no pitting or edema. NEUROLOGICAL: No focal neurological deficits. Moves all extremities spontaneously Motor and sensory grossly intact on exam. PSYCH: Normal mood, normal affect. SKIN: Warm, Dry, normal turgor, no rashes or lesions noted on exposed skin TRAVEL OUTSIDE OF THE [place] IN LAST 30 DAYS: No - Related Data Allergies/Adverse Reactions: No Known Allergies Allergy (Verified 01/01/18 18:59) Past Medical History - Social History Smoking Status: Former Smoker Chew tobacco use (# tins/day): No Frequency of alcohol use: None Drug Abuse: None Family History: Reviewed & Not Pertinent Patient has suicidal ideation: No Patient has homicidal ideation: No Endocrine Medical History: Reports: Hx Hypothyroidism Renal/ Medical History: Denies: Hx Peritoneal Dialysis GI Medical History: Reports: Hx Ulcerative Colitis Musculoskeletal Medical History: Reports Hx Arthritis Psychiatric Medical History: Denies: Hx Depression Past Surgical History: Reports: Hx Orthopedic Surgery Physical Exam - Vital signs Vitals: Temp Pulse Resp BP Pulse Ox 98.9 F 77 24 H 147/80 H 99 06/12/18 05:47 06/12/18 05:47 06/12/18 05:47 06/12/18 05:47 06/12/18 05:47 Course - Re-evaluation Re-evalutation: Patient seen and examined vital signs reviewed. Laboratory data and imaging were ordered as appropriate for the patient's presenting symptoms and complaint, with consideration of any critical or life threatening conditions that may be associated with their obtained history and exam as noted above. Patient was treated with IV fluids, IV Zofran and morphine Results were reviewed when available and demonstrated punctate ureteral stone in the distal ureter on the right, which would explain the patient's symptoms. Patient was ordered a dose of 0.4 mg of tamsulosin. Blood work revealed a mild leukocytosis, likely acute phase stress reactant, additionally patient was noted to have an elevated lipase, likely related to the patient's vomiting, not 3 times upper limit of normal, low suspicion for pancreatitis as the patient did not have any epigastric pain on my examination. We will treat the patient for small ureteral stone, urinalysis was negative for signs of infection however will send for culture, will start the patient on tamsulosin daily, Zofran, and Percocet for nausea and pain, as well as Pyridium. Advised to follow-up with urology. The patient was re-evaluated and was improved Evaluation was most consistent with ureteral stone Results were discussed with the patient at this point, after careful consideration I feel that that patient can be discharged from the emergency department, the patient was educated treatments and reasons to return to the emergency department based on their presumed diagnosis as noted above, they were advised to followup with a primary care physician in 2-3 days. Patient was agreeable to plan of care. *Note is created using voice recognition software and may contain spelling, syntax or grammatical errors. Laboratory 06/12/18 06/12/18 06/12/18 06:53 06:53 06:53 WBC 14.4 H RBC 4.93 Hgb 14.0 Hct 41.1 MCV 83 MCH 28.4 MCHC 34.1 RDW 13.9 Plt Count 422 Total Counted 100 Seg Neutrophils % Not Reportable Seg Neuts % (Manual) 56 Lymphocytes % Not Reportable Lymphocytes % (Manual) 31 Monocytes % Not Reportable Monocytes % (Manual) 8 Eosinophils % Not Reportable Eosinophils % (Manual) 5 Basophils % Not Reportable Basophils % (Manual) 0 Absolute Neutrophils Not Reportable Abs Neuts (Manual) 8.1 Absolute Lymphocytes Not Reportable Abs Lymphs (Manual) 4.5 Absolute Monocytes Not Reportable Abs Monocytes (Manual) 1.2 Absolute Eosinophils Not Reportable Absolute Eos (Manual) 0.7 H Absolute Basophils Not Reportable Abs Basophils (Manual) 0.0 Clumped Platelets PRESENT Platelet Comment ADEQUATE Sodium 140.2 Potassium 3.7 Chloride 102 Carbon Dioxide 30 Anion Gap 8 BUN 27 H Creatinine 0.79 Est GFR ( Amer) > 60 Est GFR (Non-Af Amer) > 60 Glucose 104 Calcium 9.6 Total Bilirubin 0.4 Direct Bilirubin 0.2 Neonat Total Bilirubin Not Reportable Neonat Direct Bilirubin Not Reportable Neonat Indirect Bili Not Reportable AST 15 ALT 22 Alkaline Phosphatase 93 Total Protein 6.2 L Albumin 3.6 Lipase 549.3 H Urine Color YELLOW Urine Appearance SLIGHTLY-CLOUDY Urine pH 5.0 Ur Specific [place] 1.020 Urine Protein NEGATIVE Urine Glucose (UA) NEGATIVE Urine Ketones NEGATIVE Urine Blood SMALL H Urine Nitrite NEGATIVE Urine Bilirubin NEGATIVE Urine Urobilinogen NEGATIVE Ur Leukocyte Esterase TRACE H Urine WBC (Auto) 6 Urine RBC (Auto) 4 U Hyaline Cast (Auto) 1 Squamous Epi Cells Auto 8 Urine Mucus (Auto) OCC Urine Ascorbic Acid NEGATIVE - Vital Signs Vital signs: Temp Pulse Resp BP Pulse Ox 98.9 F 77 24 H 147/80 H 99 06/12/18 05:47 06/12/18 05:47 06/12/18 05:47 06/12/18 05:47 06/12/18 05:47 - Laboratory Result Diagrams: 06/12/18 06:53 06/12/18 06:53 Laboratory results interpreted by me: 06/12/18 06/12/18 06/12/18 06:53 06:53 06:53 WBC 14.4 H Absolute Eos (Manual) 0.7 H BUN 27 H Total Protein 6.2 L Lipase 549.3 H Urine Blood SMALL H Ur Leukocyte Esterase TRACE H Discharge - Discharge Clinical Impression: Ureteral stone Hematuria Qualifiers: Hematuria type: unspecified type Qualified Code(s): R31.9 - Hematuria, unspecif ied Leukocytosis Qualifiers: Leukocytosis type: unspecified Qualified Code(s): D72.829 - Elevated white blood cell count, unspecified Condition: Stable Disposition: HOME, SELF-CARE Instructions: Kidney Stone ([facility]) Additional Instructions: Please follow-up with urology, a list was provided below, please take all medications as prescribed, particularly the Flomax which will help you pass your stone, use the urine strainer, to catch the stone if you do obtain it, he can bring this to your primary care physician or the urologist office for analysis. Monitor for signs of infection such as fevers, sweats, or worsening pain, or painful urination, if you develop these symptoms, you should return to the emergency department immediately. [email or web address] [address] Vega Sharples [email or web address] [facility] Kyle L Sharples [email or web address] [address] Prescriptions: Ondansetron [Zofran Odt 4 mg Tablet] 1 tab PO Q8H PRN #15 tab.rapdis PRN Reason: For Nausea/Vomiting Oxycodone HCl/Acetaminophen [Percocet 5-325 mg Tablet] 1 tab PO Q8H PRN #15 tab PRN Reason: general pain Phenazopyridine HCl [Pyridium 200 mg Tablet] 200 mg PO TID #15 tablet Tamsulosin HCl [Flomax 0.4 mg Cap.sr] 0.4 mg PO DAILY #7 cap.sr.24h [facility]errals: [facility] [Primary Care Provider] - Follow up in 3-5 days
[2018-06-12] MEDS ORDERED: KETOROLAC TROMETHAMINE INJ/PF 30 MG/1 ML SDV IV ONE (06:31)
--- NOTE | 2018-06-12 06:57 | RADIOLOGY REPORT (SQ) ---
EXAM DESCRIPTION: CT ABDOMEN PELVIS WITHOUT IV CONTRAST COMPLETED DATE/TME: 06/12/2018 06:13 CLINICAL HISTORY: 58 years Female, right flank pain Comparison: 03/28/18 Technique: No contrast. Coronal and sagittal reformat. This exam was performed according to our departmental dose-optimization program, which includes automated exposure control, adjustment of the mA and/or kV according to patient size and/or use of iterative reconstruction technique.[facility]: Dose Right [facility]: CareDose [facility]: Dose Right [facility]: Teradose 4D [facility]: Aereo LIMITATIONS: None Findings: Punctate right distal ureteral stone within 1 cm of the right ureterovesicular junction with mild right hydronephrosis-hydroureter. 1.2 cm calcified anterior fundal uterine fibroid. Cholelithiasis.Atelectasis/scar. Normal appendix. No gross evidence of gallbladder inflammation or hepatobiliary obstruction. No bowel obstruction. No evidence of abdominal aortic aneurysm. Unenhanced lower thorax, abdominopelvic structures, and musculoskeleton appear otherwise grossly unremarkable. Impression: 1. Punctate right distal ureteral stone with low-grade obstruction. 2. Cholelithiasis.
[2018-06-12] MEDS ORDERED: TAMSULOSIN HCL 0.4 MG CAP.SR.24H PO ONE (07:04)
[2018-06-12 07:18] LABS: HEMATOCRIT 41.1 % (36.0-47.0); MEAN CORPUSCULAR HEMOGLOBIN 28.4 pg (27.0-33.4); MEAN CORPUSCULAR HGB CONC 34.1 g/dL (32.0-36.0); MEAN CORPUSCULAR VOLUME 83 fl (80-97); PLATELET COUNT 422 10^3/uL (150-450); RED BLOOD COUNT 4.93 10^6/uL (3.72-5.28); RED CELL DISTRIBUTION WIDTH 13.9 % (11.5-14.0); WHITE BLOOD COUNT 14.4 10^3/uL (4.0-10.5)
[2018-06-12 07:31] LABS: ALANINE AMINOTRANSFERASE 22 U/L (9-52); ALBUMIN 3.6 g/dL (3.5-5.0); ALKALINE PHOSPHATASE 93 U/L (38-126); ANION GAP 8 (5-19); ASPARTATE AMINO TRANSFERASE 15 U/L (14-36); BILIRUBIN,DIRECT 0.2 mg/dL (0.0-0.4); BILIRUBIN,TOTAL 0.4 mg/dL (0.2-1.3); BLOOD UREA NITROGEN 27 mg/dL (7-20); CALCIUM 9.6 mg/dL (8.4-10.2); CARBON DIOXIDE 30 mmol/L (22-30); CHLORIDE 102 mmol/L (98-107); GLUCOSE 104 mg/dL (75-110); LIPASE 549.3 U/L (23-300); POTASSIUM 3.7 mmol/L (3.6-5.0); SODIUM 140.2 mmol/L (137-145); TOTAL PROTEIN 6.2 g/dL (6.3-8.2)
[2018-06-12 07:38] LABS: APPEARANCE,URINE SLIGHTLY-CLOUDY; BILIRUBIN,URINE NEGATIVE (NEGATIVE); COLOR,URINE YELLOW; GLUCOSE, URINE NEGATIVE (NEGATIVE); KETONES,URINE NEGATIVE (NEGATIVE); LEUKOCYTE ESTERASE,URINE TRACE (NEGATIVE); NITRITE,URINE NEGATIVE (NEGATIVE); PROTEIN,URINE NEGATIVE (NEGATIVE); UROBILINOGEN,URINE NEGATIVE mg/dL (<2.0)
[2018-06-12 07:41] LABS: ABSOLUTE LYMPHOCYTES# (MANUAL) 4.5 10^3/uL (0.5-4.7); ABSOLUTE MONOCYTES # (MANUAL) 1.2 10^3/uL (0.1-1.4); ABSOLUTE NEUTROPHILS# (MANUAL) 8.1 10^3/uL (1.7-8.2); BASOPHILS % (MANUAL) 0 % (0-2); EOSINOPHILS % (MANUAL) 5 % (0-6); LYMPHOCYTES % (MANUAL) 31 % (13-45); MONOCYTES % (MANUAL) 8 % (3-13); SEGMENTED NEUTROPHILS % (MAN) 56 % (42-78); TOTAL CELLS COUNTED 100
[2018-06-12 07:42] LABS: PLATELET CLUMPS PRESENT; PLATELET COMMENT ADEQUATE
[2018-06-12 08:11] VITALS: BP 136/79
== END 2018-06-12 08:11 | disposition home or self-care (01) ==
LOC: ER 05:36
DX: N13.2 Hydronephrosis with renal and ureteral calculous obstruction (principal); R31.9 Hematuria, unspecified; R10.9 Unspecified abdominal pain; M54.5 Low back pain; R11.0 Nausea; D72.829 Elevated white blood cell count, unspecified; R74.8 Abnormal levels of other serum enzymes; E66.9 Obesity, unspecified; Z85.820 Personal history of malignant melanoma of skin; Z87.891 Personal history of nicotine dependence
CPT/HCPCS: 99284; 96374; 96375; 36415; 87086; 83690; 85025; 80053; 81001; 74176; J1885; J2405; J7030

== ENCOUNTER → 2018-06-27 | Outpatient (CLI) | payer OTHER ==
--- NOTE | 2018-06-28 08:35 | RADIOLOGY REPORT (SQ) ---
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 TECHNIQUE: Blood glucose level was verified. Above dose of FDG was injected intravenously. 2-D seg mented attenuation correction images were obtained through the entire body. Noncontrast CT images we re obtained for attenuation correction and fusion with emission images. CT images were performed wit hout oral or intravenous contrast and are not sensitive for parenchymal lesions. A series of overlap ping emission PET images were obtained. Images reviewed and manipulated at independent work station by the radiologist. Images stored on PACS. LIMITATIONS: None. FINDINGS: HEAD AND NECK: No areas of abnormal metabolic activity in the soft tissues of the head and neck. CHEST: No areas of abnormal metabolic activity in the chest. ABDOMEN AND PELVIS: No areas of abnormal metabolic activity in the abdomen or pelvis. Expected physi ologic activity is present in the genitourinary system and bowel. LOWER EXTREMITIES: No areas of abnormal metabolic activity in the soft tissues of the lower extremiti es. BONES: No abnormal metabolic activity in the visualized skeleton. ADDITIONAL CT FINDINGS: Cholelithiasis. OTHER: No other significant findings. IMPRESSION: No evidence of recurrent melanoma. TECHNICAL DOCUMENTATION: JOB ID: [id number] [employer]- All Rights Reserved Reading location - IP/workstation name: [email or web address]
== END ==
LOC: RAD 16:55
PROVIDERS: ATTEND Internal Medicine
DX: C43.59 Malignant melanoma of other part of trunk (principal)
CPT/HCPCS: 78816; A9552

== ENCOUNTER 2018-07-26 07:26 | Emergency (ER) | payer OTHER ==
[2018-07-26] MEDS ORDERED: NORMAL SALINE 1000 ML 1,000 ML IV ONE (07:42)
[2018-07-26] MEDS ORDERED: ONDANSETRON HCL INJ/PF 4 MG/2 ML SDV IV ONE ×2 (07:43→11:58)
[2018-07-26] MEDS ORDERED: MORPHINE SULFATE 10 MG/ML INJ IV ONE (08:05)
--- NOTE | 2018-07-26 08:18 | ER Document Report ---
ED General - General Chief Complaint: Vomiting Stated Complaint: VOMITING Time Seen by Provider: 07/26/18 07:42 Primary Care Provider: TIFF MCCULLOUGH MD [Primary Care Provider] - Follow up as needed TRAVEL OUTSIDE OF THE [place] IN LAST 30 DAYS: No - HPI Notes: Patient is a 58-year-old female that presents to the emergency department for chief complaint of abdominal pain. Patient reports diffuse abdominal pain, nausea and diarrhea for the last month and a half. She has ulcerative colitis and states she is having a flare of her UC. Patient saw her GI physician [address] Herrera in [facility] who recommended Humira however patient does not want to take it because of the risk of causing leukemia. She is currently taking mesalamine but states it does not work well and is making her hair fall out. She denies any new complaints today other than increased abdominal pain. She denies being on any pain medications. She denies recent fevers and urinary complaints. Past Medical History: Ulcerative colitis Past Surgical History: Reviewed in chart Social History: Reviewed in chart Family History: Reviewed and noncontributory for presenting illness Allergies: Reviewed, see documented allergy list. REVIEW OF SYSTEMS: CONSTITUTIONAL : No fever No chills No diaphoresis No recent illness EENT: No vision changes No congestion No sore throat CARDIOVASCULAR: No chest pain No palpitations RESPIRATORY: No shortness of breath No cough No difficulty breathing GASTROINTESTINAL: abdominal pain nausea vomiting diarrhea GENITOURINARY: No dysuria No hematuria No difficulty urinating MUSCULOSKELETAL: No back pain No leg pain No arm pain SKIN: No rashes No lesions LYMPHATIC: No swollen, enlarged glands. NEUROLOGICAL: No lightheadedness No headache No weakness No paresthesias PSYCHIATRIC: No anxiety No depression PHYSICAL EXAMINATION: Vital signs reviewed, nursing noted reviewed. GENERAL: Appears uncomfortable, obese, and in no acute distress. HEAD: Atraumatic, normocephalic. EYES: Eyes appear normal, extraocular movements intact, sclera anicteric, conjunctiva are normal. ENT: nares patent, oropharynx clear without exudates. Moist mucous membranes. NECK: Normal range of motion, supple without lymphadenopathy LUNGS: Breath sounds clear to auscultation bilaterally and equal. No wheezes rales or rhonchi. HEART: Regular rate and rhythm without murmurs ABDOMEN: Soft, mild diffuse tenderness worse in the right upper and lower quadrant. No rebound, guarding, or rigidity. No masses appreciated. EXTREMITIES: Nontender, good range of motion, trace bilateral pretibial edema NEUROLOGICAL: No focal neurological deficits. Moves all extremities spontaneously Motor and sensory grossly intact on exam. PSYCH: Normal mood, normal affect. SKIN: Warm, Dry, normal turgor, no rashes or lesions noted on exposed skin - Related Data Allergies/Adverse Reactions: No Known Allergies Allergy (Verified 07/26/18 07:27) Past Medical History - Social History Smoking Status: Never Smoker Family History: Reviewed & Not Pertinent Endocrine Medical History: Reports: Hx Hypothyroidism Renal/ Medical History: Denies: Hx Peritoneal Dialysis GI Medical History: Reports: Hx Ulcerative Colitis Musculoskeletal Medical History: Reports Hx Arthritis Psychiatric Medical History: Denies: Hx Depression Past Surgical History: Reports: Hx Orthopedic Surgery Physical Exam - Vital signs Vitals: Temp Pulse Resp BP Pulse Ox 97.4 F 123 H 24 H 94/66 L 97 07/26/18 07:31 07/26/18 07:31 07/26/18 07:31 07/26/18 07:31 07/26/18 07:31 Course - Re-evaluation Re-evalutation: 07/26/18 12:51 Vitals reviewed. Nursing notes reviewed. Patient was tachycardic at presentation which improved after pain medicine. On reevaluation she states her pain has completely resolved. She has had one episode of emesis in the emergency room but has remained hemodynamically stable. CT scan shows cholelithiasis without acute other acute process. Patient's lab work shows no renal insufficiency to suggest severe dehydration. She does have hypokalemia which is consistent with her presentation of vomiting and diarrhea. Patient was given oral potassium replacement. I did talk to her about eating leafy green vegetables and bananas to help keep her potassium up while she is having chronic diarrhea. Patient has a normal hemoglobin and is not anemic from the bleeding in her stool. She was offered admission for further IV hydration and treatment of her ulcerative colitis however patient does not wish to be admitted to the hospital. She is otherwise hemodynamically stable. She was encouraged to call her GI doctor today or tomorrow to establish close follow-up. He had previously prescribed her a nausea medication which she does not know the name of. I encouraged her to have this medication filled and to begin taking it to help with her vomiting. She was counseled on return precautions and verbalized understanding. She is stable at discharge. Laboratory 07/26/18 07/26/18 07/26/18 08:49 08:49 10:30 WBC 8.9 RBC 4.96 Hgb 14.2 Hct 41.2 MCV 83 MCH 28.6 MCHC 34.4 RDW 14.3 H Plt Count 472 H Seg Neutrophils % 74.1 Lymphocytes % 12.1 L Monocytes % 9.4 Eosinophils % 4.0 Basophils % 0.4 Absolute Neutrophils 6.6 Absolute Lymphocytes 1.1 Absolute Monocytes 0.8 Absolute Eosinophils 0.4 Absolute Basophils 0.0 Sodium Cancelled 138.7 Potassium Cancelled 2.9 L* Chloride Cancelled 103 Carbon Dioxide Cancelled 21 L Anion Gap Cancelled 15 BUN Cancelled 7 Creatinine Cancelled 0.62 Est GFR ( Amer) Cancelled > 60 Est GFR (Non-Af Amer) Cancelled > 60 Glucose Cancelled 105 Calcium Cancelled 8.4 Total Bilirubin Cancelled 0.5 Direct Bilirubin Cancelled 0.4 Neonat Total Bilirubin Cancelled Not Reportable Neonat Direct Bilirubin Cancelled Not Reportable Neonat Indirect Bili Cancelled Not Reportable AST Cancelled 15 ALT Cancelled 27 Alkaline Phosphatase Cancelled 80 Total Protein Cancelled 5.8 L Albumin Cancelled 2.8 L Lipase Cancelled 54.2 Urine Color Urine Appearance Urine pH Ur Specific [place] Urine Protein Urine Glucose (UA) Urine Ketones Urine Blood Urine Nitrite Urine Bilirubin Urine Urobilinogen Ur Leukocyte Esterase Urine WBC (Auto) Urine RBC (Auto) Urine Bacteria (Auto) Squamous Epi Cells Auto Urine Mucus (Auto) Urine Ascorbic Acid 07/26/18 10:30 WBC RBC Hgb Hct MCV MCH MCHC RDW Plt Count Seg Neutrophils % Lymphocytes % Monocytes % Eosinophils % Basophils % Absolute Neutrophils Absolute Lymphocytes Absolute Monocytes Absolute Eosinophils Absolute Basophils Sodium Potassium Chloride Carbon Dioxide Anion Gap BUN Creatinine Est GFR ( Amer) Est GFR (Non-Af Amer) Glucose Calcium Total Bilirubin Direct Bilirubin Neonat Total Bilirubin Neonat Direct Bilirubin Neonat Indirect Bili AST ALT Alkaline Phosphatase Total Protein Albumin Lipase Urine Color YELLOW Urine Appearance CLEAR Urine pH 6.0 Ur Specific [place] 1.013 Urine Protein 30 H Urine Glucose (UA) NEGATIVE Urine Ketones 80 H Urine Blood SMALL H Urine Nitrite NEGATIVE Urine Bilirubin NEGATIVE Urine Urobilinogen NEGATIVE Ur Leukocyte Esterase NEGATIVE Urine WBC (Auto) 4 Urine RBC (Auto) 1 Urine Bacteria (Auto) TRACE Squamous Epi Cells Auto <1 Urine Mucus (Auto) OCC Urine Ascorbic Acid NEGATIVE Abdomen/Pelvis CT 07/26/18 09:05 IMPRESSION: Fatty infiltration of the liver. Cholelithiasis. - Vital Signs Vital signs: Temp Pulse Resp BP Pulse Ox 98.6 F 123 H 15 129/75 H 96 07/26/18 09:00 07/26/18 07:31 07/26/18 12:01 07/26/18 12:00 07/26/18 12:01 - Laboratory Result Diagrams: 07/26/18 08:49 07/26/18 10:30 Laboratory results interpreted by me: 07/26/18 07/26/18 07/26/18 08:49 10:30 10:30 RDW 14.3 H Plt Count 472 H Lymphocytes % 12.1 L Potassium 2.9 L* Carbon Dioxide 21 L Total Protein 5.8 L Albumin 2.8 L Urine Protein 30 H Urine Ketones 80 H Urine Blood SMALL H Discharge - Discharge Clinical Impression: Hypokalemia Abdominal pain Qualifiers: Abdominal location: generalized Qualified Code(s): R10.84 - Generalized abdominal pain Ulcerative colitis Qualifiers: Ulcerative colitis location: unspecified ulcerative colitis location Digestive disease complication type: with rectal bleeding Qualified Code(s): K51.911 - Ulcerative colitis, unspecified with rectal bleeding Condition: Stable Disposition: HOME, SELF-CARE Instructions: Abdominal Pain ([facility]) Additional Instructions: Please return to the emergency department if you have any worsening, or concern of your symptoms. Please return to the emergency department if you develop chest pain, difficulty breathing, severe abdominal pain, or ongoing vomiting. Please follow-up with your primary care physician in 2-3 days and any other recommended physicians. If prescribed, take all medications as directed. If you have any questions or concerns do not hesitate to return the emergency department for evaluation. Call your GI physician this afternoon or first thing tomorrow morning to establish close outpatient follow-up to discuss medications for your ulcerative colitis and possibly repeat colonoscopy. Get the nausea medication that was prescribed to you by your GI physician filled at the pharmacy to help with your vomiting Referrals: TIFF MCCULLOUGH MD [Primary Care Provider] - Follow up as needed
[2018-07-26 09:36] LABS: ABSOLUTE EOSINOPHILS # (AUTO) 0.4 10^3/uL (0.0-0.6); ABSOLUTE LYMPHOCYTES (AUTO) 1.1 10^3/uL (0.5-4.7); ABSOLUTE MONOCYTES (AUTO) 0.8 10^3/uL (0.1-1.4); ABSOLUTE NEUT (AUTO) 6.6 10^3/uL (1.7-8.2); BASOPHILS % (AUTO) 0.4 % (0-2); HEMATOCRIT 41.2 % (36.0-47.0); HEMOGLOBIN 14.2 g/dL (12.0-15.5); LYMPHOCYTES % (AUTO) 12.1 % (13-45); MEAN CORPUSCULAR HEMOGLOBIN 28.6 pg (27.0-33.4); MEAN CORPUSCULAR HGB CONC 34.4 g/dL (32.0-36.0); MEAN CORPUSCULAR VOLUME 83 fl (80-97); MONOCYTES % (AUTO) 9.4 % (3-13); PLATELET COUNT 472 10^3/uL (150-450); RED BLOOD COUNT 4.96 10^6/uL (3.72-5.28); RED CELL DISTRIBUTION WIDTH 14.3 % (11.5-14.0); SEGMENTED NEUTROPHILS % (AUTO) 74.1 % (42-78); TOTAL CELLS COUNTED % (AUTO) 100 %; WHITE BLOOD COUNT 8.9 10^3/uL (4.0-10.5)
[2018-07-26 11:11] LABS: APPEARANCE,URINE CLEAR; BILIRUBIN,URINE NEGATIVE (NEGATIVE); COLOR,URINE YELLOW; GLUCOSE, URINE NEGATIVE (NEGATIVE); KETONES,URINE 80 mg/dL (NEGATIVE); LEUKOCYTE ESTERASE,URINE NEGATIVE (NEGATIVE); NITRITE,URINE NEGATIVE (NEGATIVE); PROTEIN,URINE 30 mg/dL (NEGATIVE); URINE SPECIFIC GRAVITY 1.013; UROBILINOGEN,URINE NEGATIVE mg/dL (<2.0)
[2018-07-26 11:14] LABS: ALANINE AMINOTRANSFERASE 27 U/L (9-52); ALBUMIN 2.8 g/dL (3.5-5.0); ALKALINE PHOSPHATASE 80 U/L (38-126); ANION GAP 15 (5-19); ASPARTATE AMINO TRANSFERASE 15 U/L (14-36); BILIRUBIN,DIRECT 0.4 mg/dL (0.0-0.4); BILIRUBIN,TOTAL 0.5 mg/dL (0.2-1.3); BLOOD UREA NITROGEN 7 mg/dL (7-20); CALCIUM 8.4 mg/dL (8.4-10.2); CARBON DIOXIDE 21 mmol/L (22-30); CHLORIDE 103 mmol/L (98-107); GLUCOSE 105 mg/dL (75-110); LIPASE 54.2 U/L (23-300); SODIUM 138.7 mmol/L (137-145); TOTAL PROTEIN 5.8 g/dL (6.3-8.2)
[2018-07-26 11:16] LABS: POTASSIUM 2.9 mmol/L (3.6-5.0)
[2018-07-26] MEDS ORDERED: POTASSIUM CHLORIDE 10 MEQ CAPSULE.ER PO ONE ×3 (11:25→14:00)
--- NOTE | 2018-07-26 12:29 | RADIOLOGY REPORT (SQ) ---
EXAM DESCRIPTION: CT ABD/PELVIS WITH IV ONLY COMPLETED DATE/TIME: 07/26/2018 11:58 am REASON FOR STUDY: abdominal pain COMPARISON: 12/23/2017 TECHNIQUE: CT scan of the abdomen and pelvis performed using helical scanning technique with dynamic intravenous contrast injection. No oral contrast. Images reviewed with lung, soft tissue, and bone windows. Reconstructed coronal and sagittal MPR images reviewed. Delayed images for evaluation of the urinary system also acquired. All images stored on PACS. All CT scanners at this facility use dose modulation, iterative reconstruction, and/or weight based d osing when appropriate to reduce radiation dose to as low as reasonably achievable (ALARA). [facility]: Dose Right [facility]: CareDose [facility]: Dose Right [facility]: Teradose 4D [facility]: Ardian CONTRAST TYPE AND DOSE: contrast/concentration: Isovue mg/ml; Total Contrast Delivered: 100.0 ml; T otal Saline Delivered: 72.0 ml RENAL FUNCTION: BUN 7 creatinine 0.62 RADIATION DOSE: CT Rad equipment meets quality standard of care and radiation dose reduction techniq ues were employed. CTDIvol: 18.8 - 20.5 mGy. DLP: 2380 mGy-cm.. LIMITATIONS: None. FINDINGS: LOWER CHEST: No significant findings. No nodules or infiltrates. LIVER: The liver is diffusely hypoattenuating. No mass. SPLEEN: Normal size. No focal lesions. PANCREAS: No masses. No significant calcifications. No adjacent inflammation or peripancreatic fluid collections. Pancreatic duct not dilated. GALLBLADDER: Multiple gallstones. No ductal dilatation. ADRENAL GLANDS: No significant masses or asymmetry. RIGHT KIDNEY AND URETER: No solid masses. No significant calcifications. No hydronephrosis or hyd roureter. LEFT KIDNEY AND URETER: No solid masses. No significant calcifications. No hydronephrosis or hydr oureter. AORTA AND VESSELS: No aneurysm. No dissection. Renal arteries, SMA, celiac without stenosis. RETROPERITONEUM: No retroperitoneal adenopathy, hemorrhage or masses. BOWEL AND PERITONEAL CAVITY: No masses or inflammatory changes. No free fluid or peritoneal masses. APPENDIX: Normal. PELVIS: No mass. No free fluid. Normal bladder. ABDOMINAL WALL: No masses. No hernias. BONES: No significant or acute findings. OTHER: No other significant finding. IMPRESSION: Fatty infiltration of the liver. Cholelithiasis. TECHNICAL DOCUMENTATION: JOB ID: [id number] Quality ID # [id number]: Final reports with documentation of one or more dose reduction techniques (e.g., Au tomated exposure control, adjustment of the mA and/or kV according to patient size, use of iterative reconstruction technique) 2010 [employer]- All Rights Reserved Reading location - IP/workstation name: [email or web address]
[2018-07-26 14:12] VITALS: BP 117/85
== END 2018-07-26 14:27 | disposition home or self-care (01) ==
LOC: ER 07:26
DX: K51.911 Ulcerative colitis, unspecified with rectal bleeding (principal); R10.84 Generalized abdominal pain; E87.6 Hypokalemia; R10.9 Unspecified abdominal pain; R11.2 Nausea with vomiting, unspecified; R19.7 Diarrhea, unspecified
CPT/HCPCS: 96376; 99284; 96361; 96374; 96375; 36415; 83690; 85025; 80053; 81001; 74177; J2270; J2405; J7030

== ENCOUNTER 2018-09-25 07:35 | Inpatient (IN) | payer OTHER ==
[2018-09-25] MEDS ORDERED: ONDANSETRON HCL INJ/PF 4 MG/2 ML SDV IV ONE ×2 (08:22→11:25)
[2018-09-25] MEDS ORDERED: NORMAL SALINE 1000 ML 1,000 ML IV ONE (08:22)
--- NOTE | 2018-09-25 08:39 | EKG REPORT ---
SEVERITY:- ABNORMAL ECG - SINUS RHYTHM ABNORMAL T, CONSIDER ISCHEMIA, DIFFUSE. : Confirmed by: Nicholas Garcia MD 25-Sep-2018 08:39:04
[2018-09-25 09:02] LABS: ABSOLUTE BASOPHILS # (AUTO) 0.1 10^3/uL (0.0-0.2); ABSOLUTE LYMPHOCYTES (AUTO) 2.1 10^3/uL (0.5-4.7); ABSOLUTE MONOCYTES (AUTO) 0.6 10^3/uL (0.1-1.4); ABSOLUTE NEUT (AUTO) 5.1 10^3/uL (1.7-8.2); BASOPHILS % (AUTO) 0.7 % (0-2); EOSINOPHILS % (AUTO) 0.6 % (0-6); HEMATOCRIT 39.8 % (36.0-47.0); HEMOGLOBIN 13.6 g/dL (12.0-15.5); LYMPHOCYTES % (AUTO) 26.5 % (13-45); MEAN CORPUSCULAR HEMOGLOBIN 30.1 pg (27.0-33.4); MEAN CORPUSCULAR HGB CONC 34.1 g/dL (32.0-36.0); MEAN CORPUSCULAR VOLUME 88 fl (80-97); MONOCYTES % (AUTO) 7.6 % (3-13); PLATELET COUNT 459 10^3/uL (150-450); RED BLOOD COUNT 4.51 10^6/uL (3.72-5.28); RED CELL DISTRIBUTION WIDTH 17.9 % (11.5-14.0); SEGMENTED NEUTROPHILS % (AUTO) 64.6 % (42-78); TOTAL CELLS COUNTED % (AUTO) 100 %; WHITE BLOOD COUNT 7.8 10^3/uL (4.0-10.5)
[2018-09-25 09:10] LABS: ALANINE AMINOTRANSFERASE 46 U/L (9-52); ALBUMIN 2.7 g/dL (3.5-5.0); ALKALINE PHOSPHATASE 120 U/L (38-126); ANION GAP 19 (5-19); ASPARTATE AMINO TRANSFERASE 52 U/L (14-36); BILIRUBIN,DIRECT 0.7 mg/dL (0.0-0.4); BILIRUBIN,TOTAL 1.2 mg/dL (0.2-1.3); BLOOD UREA NITROGEN 9 mg/dL (7-20); CALCIUM 8.3 mg/dL (8.4-10.2); CARBON DIOXIDE 19 mmol/L (22-30); CHLORIDE 98 mmol/L (98-107); CREATINE KINASE 26 U/L (30-135); GLUCOSE 92 mg/dL (75-110); LIPASE 18.3 U/L (23-300); POTASSIUM 3.1 mmol/L (3.6-5.0); SODIUM 135.5 mmol/L (137-145); TOTAL PROTEIN 6.2 g/dL (6.3-8.2)
[2018-09-25 09:26] LABS: FREE T3 2.82 pg/mL (2.77-5.27); FREE T4 (FREE THYROXINE) 1.52 ng/dL (0.78-2.19)
[2018-09-25 09:40] LABS: THYROID STIMULATING HORMONE 3.26 uIU/mL (0.47-4.68)
[2018-09-25 11:10] LABS: APPEARANCE,URINE SLIGHTLY-CLOUDY; BILIRUBIN,URINE SMALL (NEGATIVE); COLOR,URINE AMBER; GLUCOSE, URINE NEGATIVE (NEGATIVE); KETONES,URINE 80 mg/dL (NEGATIVE); LEUKOCYTE ESTERASE,URINE NEGATIVE (NEGATIVE); NITRITE,URINE NEGATIVE (NEGATIVE); PROTEIN,URINE 30 mg/dL (NEGATIVE)
[2018-09-25] MEDS ORDERED: DEXTROSE 5%-LACTATED RINGERS 1,000 ML IV ONE (11:25)
--- NOTE | 2018-09-25 12:04 | ER Document Report ---
Entered by JOSH GOVEA SCRIBE 09/25/18 0821 Acting as scribe for:MENDOZA WALTERS MD ED General - General Chief Complaint: Palpitations Stated Complaint: PALPITATIONS Time Seen by Provider: 09/25/18 08:10 Primary Care Provider: TIFF MCCULLOUGH MD [Primary Care Provider] - Follow up as needed Notes: 58-year-old female presents to the emergency department today with complaints of several week history of nausea, vomiting and generalized weakness. Patient states for the last 5 weeks she has been "unable to move her legs or stand for any amount of time". Patient states she is unable to do this because of generalized weakness. Patient states she has been vomiting bile for several weeks but has not yet seen her PCP for this. Patient states she is currently not taking any medications for her ulcerative colitis. Patient states she also has not been taking her Synthroid due to being unable to keep any medication down. TRAVEL OUTSIDE OF THE [place] IN LAST 30 DAYS: No - Related Data Allergies/Adverse Reactions: No Known Allergies Allergy (Verified 09/25/18 07:36) Past Medical History - General Information source: Patient - Social History Smoking Status: Never Smoker Cigarette use (# per day): No Frequency of alcohol use: None Drug Abuse: None Lives with: Family Family History: Reviewed & Not Pertinent Endocrine Medical History: Reports: Hx Hypothyroidism GI Medical History: Reports: Hx Ulcerative Colitis Musculoskeletal Medical History: Reports Hx Arthritis Past Surgical History: Reports: Hx Orthopedic Surgery Review of Systems - Review of Systems Constitutional: See HPI, Weakness EENT: No symptoms reported Cardiovascular: No symptoms reported Respiratory: No symptoms reported Gastrointestinal: See HPI, Nausea, Vomiting Genitourinary: No symptoms reported Female Genitourinary: No symptoms reported Musculoskeletal: No symptoms reported Skin: No symptoms reported Hematologic/Lymphatic: No symptoms reported Neurological/Psychological: No symptoms reported -: Yes All other systems reviewed and negative Physical Exam - Vital signs Vitals: Pulse Resp BP Pulse Ox 129 H 16 90/76 L 98 09/25/18 07:49 09/25/18 07:49 09/25/18 07:49 09/25/18 07:49 - Notes Notes: Physical Exam: General: Alert, strong ketone odor on breath. Dry mucous membranes. HEENT: Normocephalic. Atraumatic. PERRL. Extraocular movements intact. Oropharynx clear. Neck: Supple. Non-tender. Respiratory: No respiratory distress. Clear and equal breath sounds bilaterally. Cardiovascular: Regular rate and rhythm. No tachycardia. Abdominal: Obese. Non-tender. No distension. Normal Bowel Sounds. Back: Non-tender. No deformity or step off. Extremities: Moves all four extremities. Upper extremities: Normal inspection. Normal ROM. Lower extremities: Normal inspection. No edema. Normal ROM. Neurological: Normal cognition. AAOx4. Normal speech. Psychological: Normal affect. Normal Mood. Skin: Warm. Very dry skin on arms bilaterally, with a fish scale like appearance. Course - Re-evaluation Re-evalutation: 09/25/18 11:26 Patient states she continues to be nauseous, but she would like to try some grape juice. - Vital Signs Vital signs: Temp Pulse Resp BP Pulse Ox 97.6 F 129 H 16 120/83 100 09/25/18 08:10 09/25/18 07:49 09/25/18 12:01 09/25/18 12:01 09/25/18 12:01 - Laboratory Result Diagrams: 09/25/18 08:05 09/25/18 08:05 Laboratory results interpreted by me: 09/25/18 09/25/18 09/25/18 08:05 08:05 08:05 RDW 17.9 H Plt Count 459 H Sodium 135.5 L Potassium 3.1 L Carbon Dioxide 19 L Lactic Acid 2.4 H Calcium 8.3 L Direct Bilirubin 0.7 H AST 52 H Creatine Kinase 26 L Total Protein 6.2 L Albumin 2.7 L Lipase 18.3 L Urine Protein Urine Ketones Urine Bilirubin Urine Urobilinogen 09/25/18 10:42 RDW Plt Count Sodium Potassium Carbon Dioxide Lactic Acid Calcium Direct Bilirubin AST Creatine Kinase Total Protein Albumin Lipase Urine Protein 30 H Urine Ketones 80 H Urine Bilirubin SMALL H Urine Urobilinogen 2.0 H - EKG Interpretation by Mn EKG shows normal: Sinus rhythm, Grant, Intervals, QRS Complexes. abnormal: ST-T Waves - Abnormal lateral T waves Rate: Normal - 93 Rhythm: NSR When compared to previous EKG there are: No significant change - Consults Dr. Jensen Time consulted: 12:20 Consulted provider: will come to ER Discharge - Discharge Clinical Impression: Nausea and vomiting in adult, Weight loss of more than 10% body weight, Ketosis Lower extremity weakness Qualifiers: Laterality: bilateral Qualified Code(s): R29.898 - Other symptoms and signs involving the musculoskeletal system Condition: Stable Disposition: ADMITTED INPATIENT Admitting Provider: Camila (Hospitalist) Unit Admitted: Medical Floor Referrals: TIFF MCCULLOUGH MD [Primary Care Provider] - Follow up as needed Scribe Attestation: 09/25/18 09:54 I personally performed the services described in the documentation, reviewed and edited the documentation which was dictated to the scribe in my presence, and it accurately records my words and actions. I personally performed the services described in the documentation, reviewed and edited the documentation which was dictated to the scribe in my presence, and it accurately records my words and actions.
[2018-09-25] MEDS ORDERED: IPRATROPIUM/ALBUTEROL 0.5-2.5 MG/3 ML AMPUL NEB PRN (13:22)
[2018-09-25] MEDS ORDERED: TEMAZEPAM 15 MG CAPSULE PO PRN (13:22)
[2018-09-25] MEDS ORDERED: METHYLPREDNISOLONE INJ 40 MG/1 ML SDV IV SCH (14:00)
[2018-09-25] MEDS: HEPARIN SOD (PORCINE) 5,000 UNIT/ML 1 ML SYRINGE SUBCUT SCH ×2 (14:22→21:07)
[2018-09-25] MEDS: METHYLPREDNISOLONE INJ 125 MG/2 ML SDV IV SCH ×2 (14:23→21:07)
[2018-09-25] MEDS: PROMETHAZINE HCL INJ 25 MG/1 ML VIAL IV PRN ×2 (14:23→21:06)
[2018-09-25 14:24] LABS: PHOSPHORUS 3.7 mg/dL (2.5-4.5)
[2018-09-25 14:31] LABS: PREALBUMIN 10.7 mg/dL (17.6-36.0)
[2018-09-25] MEDS: DEXTROSE 5%-NORMAL SALINE 1,000 ML IV PRN (14:35)
[2018-09-25] MEDS: CYANOCOBALAMIN (VITAMIN B-12) INJ 1000 MCG/1 ML VIAL IM SCH (14:52)
[2018-09-25] MEDS: FOLIC ACID/VITAMIN B COMP W-C CAPSULE PO SCH (16:40)
[2018-09-25] MEDS: ONDANSETRON HCL INJ/PF 4 MG/2 ML SDV IV PRN (16:40)
[2018-09-25] MEDS: METOCLOPRAMIDE HCL 10 MG TABLET PO PRN (16:51)
[2018-09-25] MEDS ORDERED: NORMAL SALINE 1000 ML 1,000 ML with POTASSIUM CHLORIDE 20 MEQ, MAGNESIUM SULFATE 8 MEQ,... IV SCH ×5 (18:00)
--- NOTE | 2018-09-25 18:08 | PDOC H&P ---
History of Present Illness Admission Date/PCP: 09/25/18 12:30 TIFF MCCULLOUGH MD History of Present Illness: MELI MCQUEEN is a 58 year old female past medical history of Ulcerative colitis: Diagnosed October 2017, followed by chief ii dispatcher at [place] was placed on mesalamine patient noncompliant due to side effects and not being effective, supposed to be placed on room air but patient refused fearing side effects. Melanoma: As [facility] she has had 2- PET scans by Dr. Duarte oncologist. As per Dr. Devine's note from 01/23/2018 patient declined chemoradiation, immunotherapy and she was not a candidate for chemotherapy due to underlying inflammatory bowel disease. Patient had preferred to travel to [place] to seek alternative treatments. Patient is presenting to ED complaining of chronic persistent nausea associated with nonbloody, bilious vomiting for the last several months, associated with nonbloody diarrhea with generalized abdominal pain. Resolved patient has lowered her p.o. intake fearing nausea vomiting and diarrhea. She is also complaining of also complaining of generalized weakness, lightheadedness, dy spnea on exertion and weight loss of 25 pounds in the last 4 weeks. Patient has been treating her nausea and vomiting with Zofran provided by PCP however lately they have not been very effective. Patient denies any fever, chills, headache, vision changes, heat or cold intolerance, constipation, hair or nail changes, any focal neurological weakness. ED she was found to have hypokalemia, mild lactic acidosis, hypo-albuminemia, prealbumin of 10.7. Past Medical History Endocrine Medical History: Reports: Hypothyroidism GI Medical History: Reports: Ulcerative Colitis Musculoskeltal Medical History: Reports: Arthritis Psychiatric Medical History: Denies: Depression Past Surgical History Past Surgical History: Reports: Orthopedic Surgery Social History Lives with: Family Smoking Status: Never Smoker Frequency of Alcohol Use: None Hx Recreational Drug Use: No Hx Prescription Drug Abuse: No - Advance Directive Resuscitation Status: Full Code Family History Family History: Reviewed & Not Pertinent Parental Family History Reviewed: Yes Children Family History Reviewed: Yes Sibling(s) Family History Reviewed.: Yes Medication/Allergy Home Medications: Cholecalciferol (Vitamin D3) [Vitamin D3 5000 unit Capsule] 5,000 unit PO DAILY 09/25/18 Levothyroxine Sodium [Synthroid 50 Mcg Tablet] 50 mcg PO DAILY 09/25/18 Allergies/Adverse Reactions: No Known Allergies Allergy (Verified 09/25/18 07:36) Review of Systems Review of Systems: as per hpi Physical Exam Vital Signs: Temp Pulse Resp BP Pulse Ox 97.5 F 78 16 121/76 100 09/25/18 16:48 09/25/18 16:48 09/25/18 16:48 09/25/18 16:48 09/25/18 16:48 Intake & Output 09/24/18 09/25/18 09/26/18 06:59 06:59 06:59 Intake Total 1000 Balance 1000 Weight 99.6 kg General appearance: PRESENT: obese Head exam: PRESENT: atraumatic, normocephalic Neck exam: ABSENT: carotid bruit, JVD, lymphadenopathy, thyromegaly Respiratory exam: PRESENT: clear to auscultation brisa. ABSENT: rales, rhonchi, wheezes Cardiovascular exam: PRESENT: RRR. ABSENT: diastolic murmur, rubs, systolic murmur GI/Abdominal exam: PRESENT: normal bowel sounds, soft. ABSENT: distended, guarding, mass, organolmegaly, rebound, tenderness Extremities exam: PRESENT: full ROM. ABSENT: calf tenderness, clubbing, pedal edema Neurological exam: PRESENT: alert, awake, oriented to person, oriented to place, oriented to time, oriented to situation, CN II-XII grossly intact. ABSENT: motor sensory deficit Psychiatric exam: PRESENT: anxious, depressed Results Laboratory Results: 09/25/18 08:05 09/25/18 08:05 09/25/18 09/25/18 09/25/18 08:05 08:05 08:05 WBC 7.8 RBC 4.51 Hgb 13.6 Hct 39.8 MCV 88 MCH 30.1 MCHC 34.1 RDW 17.9 H Plt Count 459 H Seg Neutrophils % 64.6 Lymphocytes % 26.5 Monocytes % 7.6 Eosinophils % 0.6 Basophils % 0.7 Absolute Neutrophils 5.1 Absolute Lymphocytes 2.1 Absolute Monocytes 0.6 Absolute Eosinophils 0.0 Absolute Basophils 0.1 Sodium 135.5 L Potassium 3.1 L Chloride 98 Carbon Dioxide 19 L Anion Gap 19 BUN 9 Creatinine 0.71 Est GFR ( Amer) > 60 Est GFR (Non-Af Amer) > 60 Glucose 92 Lactic Acid 2.4 H Calcium 8.3 L Phosphorus Magnesium Total Bilirubin 1.2 AST 52 H ALT 46 Alkaline Phosphatase 120 Total Protein 6.2 L Albumin 2.7 L Prealbumin Lipase 18.3 L TSH Free T4 Free T3 pg/mL Urine Color Urine Appearance Urine pH Ur Specific [place] Urine Protein Urine Glucose (UA) Urine Ketones Urine Blood Urine Nitrite Ur Leukocyte Esterase Urine WBC (Auto) 09/25/18 09/25/18 09/25/18 08:05 08:05 10:42 WBC RBC Hgb Hct MCV MCH MCHC RDW Plt Count Seg Neutrophils % Lymphocytes % Monocytes % Eosinophils % Basophils % Absolute Neutrophils Absolute Lymphocytes Absolute Monocytes Absolute Eosinophils Absolute Basophils Sodium Potassium Chloride Carbon Dioxide Anion Gap BUN Creatinine Est GFR ( Amer) Est GFR (Non-Af Amer) Glucose Lactic Acid Calcium Phosphorus 3.7 Magnesium 1.6 Total Bilirubin AST ALT Alkaline Phosphatase Total Protein Albumin Prealbumin 10.7 L Lipase TSH 3.26 Free T4 1.52 Free T3 pg/mL 2.82 Urine Color MYRA Urine Appearance SLIGHTLY-CLOUDY Urine pH 6.0 Ur Specific [place] 1.020 Urine Protein 30 H Urine Glucose (UA) NEGATIVE Urine Ketones 80 H Urine Blood NEGATIVE Urine Nitrite NEGATIVE Ur Leukocyte Esterase NEGATIVE Urine WBC (Auto) 6 09/25/18 09/25/18 08:05 08:05 Creatine Kinase 26 L Troponin I < 0.012 Assessment and Plan - Diagnosis (1) Nausea and vomiting Qualifiers: Vomiting type: unspecified Vomiting Intractability: intractable Qualified Code(s): R11.2 - Nausea with vomiting, unspecified Is this a current diagnosis for this admission?: Yes Plan: Chronic, most likely due to underlying IBD. Volume resuscitation, antiemetics, monitor and replace electrolytes as needed, treat underlying IBD. (2) Ulcerative colitis Qualifiers: Ulcerative colitis location: unspecified ulcerative colitis location Digestive disease complication type: with rectal bleeding Qualified Code(s): K51.911 - Ulcerative colitis, unspecified with rectal bleeding Is this a current diagnosis for this admission?: No Plan: IV steroids. Patient refuses to be placed on mesalamine or immunologic's fearing side effects. Consult gastroenterology. (3) Ketosis Is this a current diagnosis for this admission?: Yes Plan: Due to low p.o. intake. As per #1. Monitor for refeeding syndrome. Magnesium and phosphate WNL. (4) Weight loss of more than 10% body weight Is this a current diagnosis for this admission?: No Plan: Due to low p.o. intake. Dietitian has been consulted. (5) Hypothyroid Is this a current diagnosis for this admission?: No Plan: TSH/T3/T4 WNL. Restart home meds. (6) Hx of malignant melanoma Is this a current diagnosis for this admission?: No Plan: As per patient she underwent surgery, and successive to PET scan has been negative.
[2018-09-25] MEDS: OXYCODONE-ACETAMINOPHEN 5-325 MG TABLET PO PRN (18:22)
[2018-09-25 19:21] LABS: ANION GAP 7 (5-19); BLOOD UREA NITROGEN 7 mg/dL (7-20); CALCIUM 7.7 mg/dL (8.4-10.2); CARBON DIOXIDE 27 mmol/L (22-30); CHLORIDE 100 mmol/L (98-107); GLUCOSE 249 mg/dL (75-110); SODIUM 133.7 mmol/L (137-145)
[2018-09-25] MEDS: PANTOPRAZOLE SODIUM 40 MG VIAL IV SCH (21:07)
[2018-09-26 04:52] LABS: HEMATOCRIT 35.8 % (36.0-47.0); HEMOGLOBIN 12.1 g/dL (12.0-15.5); MEAN CORPUSCULAR HGB CONC 33.7 g/dL (32.0-36.0); MEAN CORPUSCULAR VOLUME 89 fl (80-97); PLATELET COUNT 279 10^3/uL (150-450); RED BLOOD COUNT 4.02 10^6/uL (3.72-5.28); RED CELL DISTRIBUTION WIDTH 17.9 % (11.5-14.0); WHITE BLOOD COUNT 4.6 10^3/uL (4.0-10.5)
[2018-09-26 05:17] LABS: ANION GAP 7 (5-19); BLOOD UREA NITROGEN 8 mg/dL (7-20); CALCIUM 7.8 mg/dL (8.4-10.2); CARBON DIOXIDE 24 mmol/L (22-30); CHLORIDE 101 mmol/L (98-107); GLUCOSE 241 mg/dL (75-110); POTASSIUM 3.2 mmol/L (3.6-5.0); SODIUM 132.4 mmol/L (137-145)
[2018-09-26] MEDS: HEPARIN SOD (PORCINE) 5,000 UNIT/ML 1 ML SYRINGE SUBCUT SCH ×3 (05:56→21:31)
[2018-09-26] MEDS: LEVOTHYROXINE SODIUM 0.025 MG TABLET PO SCH (05:56)
[2018-09-26] MEDS: METHYLPREDNISOLONE INJ 125 MG/2 ML SDV IV SCH ×3 (05:56→21:31)
[2018-09-26] MEDS: METOCLOPRAMIDE HCL 10 MG TABLET PO PRN ×3 (07:23→17:23)
[2018-09-26] MEDS: PROMETHAZINE HCL INJ 25 MG/1 ML VIAL IV PRN ×2 (07:24→12:00)
[2018-09-26] MEDS: PANTOPRAZOLE SODIUM 40 MG VIAL IV SCH ×2 (10:20→21:31)
[2018-09-26] MEDS: ONDANSETRON HCL INJ/PF 4 MG/2 ML SDV IV PRN ×2 (10:27→15:18)
[2018-09-26] MEDS: CYANOCOBALAMIN (VITAMIN B-12) INJ 1000 MCG/1 ML VIAL IM SCH (10:27)
[2018-09-26] MEDS: DEXTROSE 5%-NORMAL SALINE 1,000 ML IV PRN ×2 (11:29→21:42)
--- NOTE | 2018-09-26 15:34 | PDOC PROGRESS REPORT ---
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 Melanoma: As [facility] she has had 2- PET scans by Dr. Duarte oncologist. As per Dr. Devine's note from 01/23/2018 patient declined chemoradiation, immunotherapy and she was not a candidate for chemotherapy due to underlying inflammatory bowel disease. Patient had preferred to travel to [place] to seek alternative treatments. Patient is presenting to ED complaining of chronic persistent nausea associated with nonbloody, bilious vomiting for the last several months, associated with nonbloody diarrhea with generalized abdominal pain. Resolved patient has lowered her p.o. intake fearing nausea vomiting and diarrhea. She is also complaining of also complaining of generalized weakness, lightheadedness, dyspnea on exertion and weight loss of 25 pounds in the last 4 weeks. Patient has been treating her nausea and vomiting with Zofran provided by PCP however lately they have not been very effective. Patient denies any fever, chills, headache, vision changes, heat or cold intolerance, constipation, hair or nail changes, any focal neurological weakness. ED she was found to have hypokalemia, mild lactic acidosis, hypo-albuminemia, prealbumin of 10.7. 09/26/2017. Significant improvement of nausea and vomiting, patient has been p.o. tolerant, she was started on clear liquid advance to regular diet. Has not had any bowel movement since admission. Complaining of generalized weakness otherwise denying any fever, nausea, vomiting, diarrhea, constipation or any urinary symptoms. Reason For Visit: NAUSEA, VOMITING, UC Physical Exam Vital Signs: Temp Pulse Resp BP Pulse Ox 97.9 F 85 14 117/89 H 98 09/26/18 11:42 09/26/18 14:14 09/26/18 14:14 09/26/18 11:42 09/26/18 11:42 Intake & Output 09/25/18 09/26/18 09/27/18 06:59 06:59 06:59 Intake Total 3777 960 Output Total 550 Balance 3227 960 Weight 100.6 kg General appearance: PRESENT: no acute distress, obese, well-developed, well- nourished Head exam: PRESENT: atraumatic, normocephalic Respiratory exam: PRESENT: clear to auscultation brisa. ABSENT: rales, rhonchi, wheezes Cardiovascular exam: PRESENT: RRR. ABSENT: diastolic murmur, rubs, systolic murmur GI/Abdominal exam: PRESENT: normal bowel sounds, soft. ABSENT: distended, guarding, mass, organolmegaly, rebound, tenderness Neurological exam: PRESENT: alert, awake, oriented to person, oriented to place, oriented to time, oriented to situation, CN II-XII grossly intact. ABSENT: motor sensory deficit Results Laboratory Results: 09/26/18 04:17 09/26/18 04:17 09/25/18 09/26/18 09/26/18 18:55 04:17 04:17 WBC 4.6 RBC 4.02 Hgb 12.1 Hct 35.8 L MCV 89 MCH 30.0 MCHC 33.7 RDW 17.9 H Plt Count 279 Sodium 133.7 L 132.4 L Potassium 3.0 L* 3.2 L Chloride 100 101 Carbon Dioxide 27 24 Anion Gap 7 7 BUN 7 8 Creatinine 0.54 0.54 Est GFR ( Amer) > 60 > 60 Est GFR (Non-Af Amer) > 60 > 60 Glucose 249 H 241 H Calcium 7.7 L 7.8 L 09/25/18 09/25/18 08:05 08:05 Creatine Kinase 26 L Troponin I < 0.012 Assessment and Plan - Diagnosis (1) Nausea and vomiting Qualifiers: Vomiting type: unspecified Vomiting Intractability: intractable Qualified Code(s): R11.2 - Nausea with vomiting, unspecified Is this a current diagnosis for this admission?: Yes Plan: Significant improvement since admission. Has not had any vomiting since yesterday. Chronic, most likely due to underlying IBD. Volume resuscitation, antiemetics, monitor and replace electrolytes as needed, treat underlying IBD. (2) Ulcerative colitis Qualifiers: Ulcerative colitis location: unspecified ulcerative colitis location Digestive disease complication type: with rectal bleeding Qualified Code(s): K51.911 - Ulcerative colitis, unspecified with rectal bleeding Is this a current diagnosis for this admission?: No Plan: IV steroids. Patient refuses to be placed on mesalamine or immunologic's fearing side effects. Consult gastroenterology. (3) Ketosis Is this a current diagnosis for this admission?: Yes Plan: Due to low p.o. intake. As per #1. Monitor for refeeding syndrome. Magnesium and phosphate WNL. (4) Weight loss of more than 10% body weight Is this a current diagnosis for this admission?: No Plan: Due to low p.o. intake. Dietitian has been consulted. (5) Hypothyroid Is this a current diagnosis for this admission?: No Plan: TSH/T3/T4 WNL. Restart home meds. (6) Hx of malignant melanoma Is this a current diagnosis for this admission?: No Plan: As per patient she underwent surgery, and successive to PET scan has been negative.
[2018-09-26] MEDS ORDERED: POTASSIUM CHLORIDE 10 MEQ CAPSULE.ER PO SCH (16:00)
[2018-09-26] MEDS: PROMETHAZINE HCL 25 MG TABLET PO PRN (17:23)
[2018-09-26] MEDS: FOLIC ACID/VITAMIN B COMP W-C CAPSULE PO SCH (17:23)
[2018-09-26] MEDS: CALCIUM CARBONATE 250 MG/VITAMIN D3 125 UNIT TABLET PO SCH (17:23)
[2018-09-27 04:50] LABS: ABSOLUTE LYMPHOCYTES (AUTO) 1.2 10^3/uL (0.5-4.7); ABSOLUTE MONOCYTES (AUTO) 0.3 10^3/uL (0.1-1.4); ABSOLUTE NEUT (AUTO) 6.2 10^3/uL (1.7-8.2); BASOPHILS % (AUTO) 0.3 % (0-2); HEMATOCRIT 31.2 % (36.0-47.0); HEMOGLOBIN 10.4 g/dL (12.0-15.5); MEAN CORPUSCULAR HEMOGLOBIN 30.3 pg (27.0-33.4); MEAN CORPUSCULAR HGB CONC 33.5 g/dL (32.0-36.0); MEAN CORPUSCULAR VOLUME 91 fl (80-97); MONOCYTES % (AUTO) 4.1 % (3-13); PLATELET COUNT 256 10^3/uL (150-450); RED BLOOD COUNT 3.45 10^6/uL (3.72-5.28); RED CELL DISTRIBUTION WIDTH 17.7 % (11.5-14.0); SEGMENTED NEUTROPHILS % (AUTO) 79.6 % (42-78); TOTAL CELLS COUNTED % (AUTO) 100 %; WHITE BLOOD COUNT 7.8 10^3/uL (4.0-10.5)
[2018-09-27 05:22] LABS: ALANINE AMINOTRANSFERASE 57 U/L (9-52); ALKALINE PHOSPHATASE 163 U/L (38-126); ANION GAP 10 (5-19); ASPARTATE AMINO TRANSFERASE 65 U/L (14-36); BILIRUBIN,DIRECT 0.4 mg/dL (0.0-0.4); BILIRUBIN,TOTAL 0.5 mg/dL (0.2-1.3); BLOOD UREA NITROGEN 6 mg/dL (7-20); CALCIUM 7.9 mg/dL (8.4-10.2); CARBON DIOXIDE 21 mmol/L (22-30); CHLORIDE 103 mmol/L (98-107); GLUCOSE 295 mg/dL (75-110); SODIUM 134.3 mmol/L (137-145); TOTAL PROTEIN 4.8 g/dL (6.3-8.2)
[2018-09-27] MEDS: HEPARIN SOD (PORCINE) 5,000 UNIT/ML 1 ML SYRINGE SUBCUT SCH ×3 (05:48→22:12)
[2018-09-27] MEDS: METHYLPREDNISOLONE INJ 125 MG/2 ML SDV IV SCH ×3 (05:48→22:11)
[2018-09-27] MEDS: LEVOTHYROXINE SODIUM 0.025 MG TABLET PO SCH (05:48)
[2018-09-27 05:53] LABS: POTASSIUM 2.9 mmol/L (3.6-5.0)
[2018-09-27] MEDS: DEXTROSE 5%-NORMAL SALINE 1,000 ML IV PRN ×2 (07:50→22:11)
[2018-09-27] MEDS ORDERED: POTASSIUM CHLORIDE 10 MEQ CAPSULE.ER PO SCH ×2 (08:00→10:00)
--- NOTE | 2018-09-27 08:57 | PDOC CONSULTATION ---
Consultation Consult Date: 09/27/18 Attending physician:: BECCA WYNN Provider Consulted: CLAUDETTE ZEE Consult reason:: Patient with known history of melanoma, also ulcerative colitis here with nausea vomiting diarrhea History of Present Illness Admission Date/PCP: 09/26/18 09:06 TIFF MCCULLOUGH MD Patient complains of: Nausea vomiting, diarrhea History of Present Illness: MELI MCQUEEN is a 58 year old female with history of melanoma, she originally had a skin lesion that was excised but margins were positive, initial PET scan showed lymph node positivity, patient was planned for wide local excision as well as axillary dissection. But ultimately she decided against all of this. Interestingly, however, the last PET/CT that was done in June was negative for any disease. Over the last 6 months she is also been diagnosed with severe ulcerative colitis and was admitted in January with severe bloody diarrhea. Ultimately she was treated with steroids and placed on oral mesalamine. She was being worked up to be initiated on Humira, but while on oral mesalamine in June she began have flare, with nausea vomiting and diarrh ea. She tells me she called her drafter landscape, but she never actually went to see him. She does not really have great transportation on her own, and felt too weak to drive. She comes in with nearly a 2-month history of recurrent nausea vomiting and diarrhea almost 3 times a day, she is very weak currently as expected with this history. Past Medical History Endocrine Medical History: Reports: Hypothyroidism Malignancy Medical History: Reports: Other - Melanoma GI Medical History: Reports: Ulcerative Colitis Musculoskeltal Medical History: Reports: Arthritis Psychiatric Medical History: Denies: Depression Past Surgical History Past Surgical History: Reports: Orthopedic Surgery Social History Information Source: Patient Lives with: Family Smoking Status: Never Smoker Frequency of Alcohol Use: None Hx Recreational Drug Use: No Hx Prescription Drug Abuse: No - Advance Directive Resuscitation Status: Full Code Family History Family History: Reviewed & Not Pertinent Parental Family History Reviewed: Yes Children Family History Reviewed: Yes Sibling(s) Family History Reviewed.: Yes Medication/Allergy Home Medications: Cholecalciferol (Vitamin D3) [Vitamin D3 5000 unit Capsule] 5,000 unit PO DAILY 09/25/18 Levothyroxine Sodium [Synthroid 50 Mcg Tablet] 50 mcg PO DAILY 09/25/18 Allergies/Adverse Reactions: No Known Allergies Allergy (Verified 09/25/18 07:36) Review of Systems Constitutional: ABSENT: chills, fever(s), headache(s), weight gain, weight loss Eyes: ABSENT: visual disturbances Ears: ABSENT: hearing changes Cardiovascular: ABSENT: chest pain, dyspnea on exertion, edema, orthropnea, palpitations Respiratory: ABSENT: cough, hemoptysis Gastrointestinal: ABSENT: abdominal pain, constipation, diarrhea, hematemesis, hematochezia, nausea, vomiting Genitourinary: ABSENT: dysuria, hematuria Musculoskeletal: ABSENT: joint swelling Integumentary: ABSENT: rash, wounds Neurological: ABSENT: abnormal gait, abnormal speech, confusion, dizziness, focal weakness, syncope Psychiatric: ABSENT: anxiety, depression, homidical ideation, suicidal ideation Endocrine: ABSENT: cold intolerance, heat intolerance, polydipsia, polyuria Hematologic/Lymphatic: ABSENT: easy bleeding, easy bruising Physical Exam Vital Signs: Temp Pulse Resp BP Pulse Ox 97.6 F 93 16 117/71 98 09/26/18 23:22 09/26/18 23:22 09/26/18 23:22 09/26/18 23:22 09/26/18 23:22 Intake & Output 09/26/18 09/27/18 09/28/18 06:59 06:59 06:59 Intake Total 3777 2600 1000 Output Total 550 1676 Balance 3227 924 1000 Weight 100.6 kg 107.5 kg General appearance: PRESENT: no acute distress, well-developed, well-nourished Head exam: PRESENT: atraumatic, normocephalic Eye exam: PRESENT: conjunctiva pink, EOMI, PERRLA. ABSENT: scleral icterus Ear exam: PRESENT: normal external ear exam Mouth exam: PRESENT: moist, tongue midline Neck exam: ABSENT: carotid bruit, JVD, lymphadenopathy, thyromegaly Respiratory exam: PRESENT: clear to auscultation brisa. ABSENT: rales, rhonchi, wheezes Cardiovascular exam: PRESENT: RRR. ABSENT: diastolic murmur, rubs, systolic murmur Pulses: PRESENT: normal dorsalis pedis pul Vascular exam: PRESENT: normal capillary refill GI/Abdominal exam: PRESENT: normal bowel sounds, soft. ABSENT: distended, guarding, mass, organolmegaly, rebound, tenderness Rectal exam: PRESENT: deferred Extremities exam: PRESENT: full ROM. ABSENT: calf tenderness, clubbing, pedal edema Neurological exam: PRESENT: alert, awake, oriented to person, oriented to place, oriented to time, oriented to situation, CN II-XII grossly intact. ABSENT: motor sensory deficit Psychiatric exam: PRESENT: appropriate affect, normal mood. ABSENT: homicidal ideation, suicidal ideation Skin exam: PRESENT: dry, intact, warm. ABSENT: cyanosis, rash Results Laboratory Results: 09/27/18 04:00 09/27/18 04:00 09/27/18 09/27/18 04:00 04:00 WBC 7.8 RBC 3.45 L Hgb 10.4 L Hct 31.2 L MCV 91 MCH 30.3 MCHC 33.5 RDW 17.7 H Plt Count 256 Seg Neutrophils % 79.6 H Lymphocytes % 16.0 Monocytes % 4.1 Eosinophils % 0.0 Basophils % 0.3 Absolute Neutrophils 6.2 Absolute Lymphocytes 1.2 Absolute Monocytes 0.3 Absolute Eosinophils 0.0 Absolute Basophils 0.0 Sodium 134.3 L Potassium 2.9 L* Chloride 103 Carbon Dioxide 21 L Anion Gap 10 BUN 6 L Creatinine 0.74 Est GFR ( Amer) > 60 Est GFR (Non-Af Amer) > 60 Glucose 295 H Calcium 7.9 L Magnesium 1.7 Total Bilirubin 0.5 AST 65 H ALT 57 H Alkaline Phosphatase 163 H Total Protein 4.8 L Albumin 2.0 L 09/25/18 09/25/18 08:05 08:05 Creatine Kinase 26 L Troponin I < 0.012 Assessment & Plan - Diagnosis (1) Nausea and vomiting in adult patient Is this a current diagnosis for this admission?: Yes Plan: I feel like most likely it should be related to the ulcerative colitis, she is on steroids now and this should improve within the next 24 to 48 hours. GI has been consulted. I think endoscopy and colonoscopy are warranted. (2) Ulcerative colitis Qualifiers: Ulcerative colitis location: other ulcerative colitis Digestive disease complication type: other complication Qualified Code(s): K51.818 - Other ulcerative colitis with other complication Is this a current diagnosis for this admission?: Yes Plan: I believe she is having a flare of the ulcerative colitis, continue with IV steroids per hospitalist team (3) Anemia Qualifiers: Anemia type: iron deficiency Is this a current diagnosis for this admission?: Yes Plan: Previous iron deficiency anemia secondary to blood loss, hemoglobin is 10 so a little bit lower than it was in our office but still not as bad as previous admission. Continue to follow for now. (4) Hx of malignant melanoma Is this a current diagnosis for this admission?: Yes Plan: Most recent PET/CT was negative for involvement, she was planned for PET/CT in about a week's time and see us back thereafter but we will discontinue this PET/CT given her current flare. I would like her flare to completely calm down and her bowels to be moving appropriately and not having nausea and vomiting before we do any further metastatic imaging. - Time Time Spent: Greater than 70 Minutes - Inpatient Certification Based on my medical assessment, after consideration of the patient's comorbidities, presenting symptoms, or acuity I expect that the services needed warrant INPATIENT care.: Yes I certify that my determination is in accordance with my understanding of Medicare's requirements for reasonable and necessary INPATIENT services [42 CFR 412.3e].: Yes Medical Necessity: Need For IV Fluids, Need for Surgery - Need for endoscopy and colonoscopy, Other - Need for IV steroids
[2018-09-27] MEDS: CYANOCOBALAMIN (VITAMIN B-12) INJ 1000 MCG/1 ML VIAL IM SCH (10:43)
[2018-09-27] MEDS: CALCIUM CARBONATE 250 MG/VITAMIN D3 125 UNIT TABLET PO SCH ×2 (10:43→17:56)
[2018-09-27] MEDS: PANTOPRAZOLE SODIUM 40 MG VIAL IV SCH ×2 (10:43→22:13)
[2018-09-27] MEDS: POTASSIUM CHLORIDE 10 MEQ CAPSULE.ER PO SCH ×2 (10:43→17:56)
[2018-09-27] MEDS: PROMETHAZINE HCL 25 MG TABLET PO PRN (10:55)
[2018-09-27] MEDS ORDERED: DEXTROSE 50%-WATER 25 GM/50 ML DISP.SYRIN IV PRN ×2 (12:07)
[2018-09-27] MEDS ORDERED: GLUCAGON,HUMAN RECOMB 1 MG INJ IM PRN (12:07)
[2018-09-27] MEDS ORDERED: DEXTROSE 40% GEL 15 GM TUBE PO PRN ×2 (12:07)
--- NOTE | 2018-09-27 12:45 | PDOC PROGRESS REPORT ---
Subjective Progress Note for:: 09/27/18 Subjective:: MELI MCQUEEN is a 58 year old female past medical history of Ulcerative colitis: Diagnosed October 2017, followed by dental service chief at [place] was placed on mesalamine patient noncompliant due to side effects and not being effective, supposed to be placed on room air but patient refused fearing side effects. Melanoma: As per patient [facility] patient she has had 2- PET scans by Dr. Duarte oncologist. As per Dr. Devine's note from 01/23/2018 patient declined chemoradiation, immunotherapy and she was not a candidate for chemotherapy due to underlying inflammatory bowel disease. Patient had preferred to travel to [place] to seek alternative treatments. Patient is presenting to ED complaining of chronic persistent nausea associated with nonbloody, bilious vomiting for the last several months, associated with nonbloody diarrhea with generalized abdominal pain. Resolved patient has lowered her p.o. intake fearing nausea vomiting and diarrhea. She is also complaining of also complaining of generalized weakness, lightheadedness, dyspnea on exertion and weight loss of 25 pounds in the last 4 weeks. Patient has been treating her nausea and vomiting with Zofran provided by PCP however lately they have not been very effective. Patient denies any fever, chills, headache, vision changes, heat or cold intolerance, constipation, hair or nail changes, any focal neurological weakness. ED she was found to have hypokalemia, mild lactic acidosis, hypo-albuminemia, prealbumin of 10.7. 09/26/2018. Significant improvement of nausea and vomiting, patient has been p.o. tolerant, she was started on clear liquid advance to regular diet. Has not had any bowel movement since admission. Complaining of generalized weakness otherwise denying any fever, nausea, vomiting, diarrhea, constipation or any urinary symptoms. 09/27/2018. No acute events overnight, patient has not had any vomiting or diarrhea, persistent nausea which has been controlled by antiemetics. Complaining of generalized weakness, unable to ambulate without assistance, to be transferred to rehab upon discharge. Denies any fever, chest pain, shortness of breath, abdominal pain, constipation or any urinary symptoms. Reason For Visit: NAUSEA, VOMITING, UC Physical Exam Vital Signs: Temp Pulse Resp BP Pulse Ox 97.6 F 93 16 117/71 98 09/26/18 23:22 09/26/18 23:22 09/26/18 23:22 09/26/18 23:22 09/26/18 23:22 Intake & Output 09/26/18 09/27/18 09/28/18 06:59 06:59 06:59 Intake Total 3777 2600 1000 Output Total 550 1676 Balance 3227 924 1000 Weight 100.6 kg 107.5 kg General appearance: PRESENT: no acute distress, obese, well-developed, well- nourished Head exam: PRESENT: atraumatic, normocephalic Respiratory exam: PRESENT: clear to auscultation brisa. ABSENT: rales, rhonchi, wheezes Cardiovascular exam: PRESENT: RRR. ABSENT: diastolic murmur, rubs, systolic murmur GI/Abdominal exam: PRESENT: normal bowel sounds, soft. ABSENT: distended, guarding, mass, organolmegaly, rebound, tenderness Extremities exam: PRESENT: full ROM. ABSENT: calf tenderness, clubbing, pedal edema Neurological exam: PRESENT: alert, awake, oriented to person, oriented to place, oriented to time, oriented to situation, CN II-XII grossly intact. ABSENT: motor sensory deficit Results Laboratory Results: 09/27/18 04:00 09/27/18 04:00 09/27/18 09/27/18 04:00 04:00 WBC 7.8 RBC 3.45 L Hgb 10.4 L Hct 31.2 L MCV 91 MCH 30.3 MCHC 33.5 RDW 17.7 H Plt Count 256 Seg Neutrophils % 79.6 H Lymphocytes % 16.0 Monocytes % 4.1 Eosinophils % 0.0 Basophils % 0.3 Absolute Neutrophils 6.2 Absolute Lymphocytes 1.2 Absolute Monocytes 0.3 Absolute Eosinophils 0.0 Absolute Basophils 0.0 Sodium 134.3 L Potassium 2.9 L* Chloride 103 Carbon Dioxide 21 L Anion Gap 10 BUN 6 L Creatinine 0.74 Est GFR ( Amer) > 60 Est GFR (Non-Af Amer) > 60 Glucose 295 H Calcium 7.9 L Magnesium 1.7 Total Bilirubin 0.5 AST 65 H ALT 57 H Alkaline Phosphatase 163 H Total Protein 4.8 L Albumin 2.0 L 09/25/18 09/25/18 08:05 08:05 Creatine Kinase 26 L Troponin I < 0.012 Assessment and Plan - Diagnosis (1) Nausea and vomiting Qualifiers: Vomiting type: unspecified Vomiting Intractability: intractable Qualified Code(s): R11.2 - Nausea with vomiting, unspecified Is this a current diagnosis for this admission?: Yes Plan: Significant improvement since admission. Has not had any vomiting since yesterday. Chronic, most likely due to underlying IBD. Volume resuscitation, antiemetics, monitor and replace electrolytes as needed, treat underlying IBD. (2) Ulcerative colitis Qualifiers: Ulcerative colitis location: other ulcerative colitis Digestive disease complication type: other complication Qualified Code(s): K51.818 - Other ulcerative colitis with other complication Is this a current diagnosis for this admission?: Yes Plan: IV steroids day 3. Patient refuses to be placed on mesalamine or immunologic's fearing side effects. Pending gastroenterology recommendation. (3) Ketosis Is this a current diagnosis for this admission?: Yes Plan: Due to low p.o. intake. As per #1. Monitor for refeeding syndrome. Magnesium and phosphate WNL. (4) Weight loss of more than 10% body weight Is this a current diagnosis for this admission?: No Plan: Due to low p.o. intake. Dietitian has been consulted. (5) Hypothyroid Is this a current diagnosis for this admission?: No Plan: TSH/T3/T4 WNL. Restart home meds. (6) Hx of malignant melanoma Is this a current diagnosis for this admission?: Yes Plan: As per patient she underwent surgery, and successive to PET scan has been negative. Oncology was consulted, as per Dr. Duarte's note he did have an excision of melanoma but the margins were positive and repeat PET and has been negative. Follow-up as outpatient with Dr. Duarte and possible repeat PET scan once ulcerative colitis flare has been treated successfully.
[2018-09-27] MEDS ORDERED: ONDANSETRON HCL INJ/PF 4 MG/2 ML SDV IV PRN (13:30)
--- NOTE | 2018-09-27 16:06 | PDOC CONSULTATION ---
Consultation Consult Date: 09/27/18 Provider Consulted: SIERRA GRIDER Consult reason:: Flare of IBD History of Present Illness Admission Date/PCP: 09/26/18 09:06 TIFF MCCULLOUGH MD History of Present Illness: MELI MCQUEEN is a 58 year old female I have been asked to see this patient who is already seeing GI in [place] has a history of UC however has a history of melanoma she does not want to be on immunological agents to include biological therapy and steroids. she presented with a possible flare of her UC and has nausea and vomiting her nausea and vomiting have slightly improved due to the fact that immunosuppression can be related to making melanoma worse, patient has opted not to choose this form of therapy that basically leaves 5 ASA she should continue on this along with conservative therapy of antibiotics and hopefully will improve Past Medical History Endocrine Medical History: Reports: Hypothyroidism Malignancy Medical History: Reports: Other - Melanoma GI Medical History: Reports: Ulcerative Colitis Musculoskeltal Medical History: Reports: Arthritis Psychiatric Medical History: Denies: Depression Past Surgical History Past Surgical History: Reports: Orthopedic Surgery Social History Lives with: Family Smoking Status: Never Smoker Frequency of Alcohol Use: None Hx Recreational Drug Use: No Hx Prescription Drug Abuse: No - Advance Directive Resuscitation Status: Full Code Family History Family History: Reviewed & Not Pertinent Parental Family History Reviewed: Yes Children Family History Reviewed: Unknown Sibling(s) Family History Reviewed.: Unknown Medication/Allergy Home Medications: Cholecalciferol (Vitamin D3) [Vitamin D3 5000 unit Capsule] 5,000 unit PO DAILY 09/25/18 Levothyroxine Sodium [Synthroid 50 Mcg Tablet] 50 mcg PO DAILY 09/25/18 Allergies/Adverse Reactions: No Known Allergies Allergy (Verified 09/25/18 07:36) Review of Systems Constitutional: ABSENT: fever(s), headache(s), night sweats, weakness Eyes: ABSENT: visual disturbances Ears: ABSENT: hearing changes Nose, Mouth, and Throat: ABSENT: mouth pain, sore throat Cardiovascular: ABSENT: edema, orthropnea, palpitations Respiratory: ABSENT: dyspnea, hemoptysis Gastrointestinal: PRESENT: diarrhea, nausea, vomiting. ABSENT: hematemesis, hem atochezia Genitourinary: ABSENT: dysuria, hematuria Musculoskeletal: ABSENT: deformity, joint swelling Integumentary: ABSENT: lesions, pruritus Neurological: ABSENT: syncope, tingling, tremor(s), vertigo Endocrine: ABSENT: polydipsia, polyphagia, polyuria Hematologic/Lymphatic: ABSENT: easy bruising Physical Exam Vital Signs: Temp Pulse Resp BP Pulse Ox 98.3 F 80 17 124/82 100 09/27/18 15:38 09/27/18 15:38 09/27/18 15:38 09/27/18 15:38 09/27/18 15:38 Intake & Output 09/26/18 09/27/18 09/28/18 06:59 06:59 06:59 Intake Total 3777 2600 1000 Output Total 550 1676 Balance 3227 924 1000 Weight 100.6 kg 107.5 kg General appearance: PRESENT: mild distress, well-developed, well-nourished Head exam: PRESENT: atraumatic, normocephalic Eye exam: PRESENT: EOMI, PERRLA. ABSENT: nystagmus, periorbital swelling, scleral icterus Mouth exam: PRESENT: moist, neck supple Throat exam: ABSENT: tonsillar exudate, tonsillogmegaly Neck exam: ABSENT: meningismus, tenderness, thyromegaly Respiratory exam: PRESENT: symmetrical, unlabored. ABSENT: tachypnea, wheezes Cardiovascular exam: PRESENT: RRR, +S1, +S2 GI/Abdominal exam: PRESENT: soft. ABSENT: rebound, rigid, tenderness Extremities exam: ABSENT: joint swelling Musculoskeletal exam: PRESENT: full ROM Neurological exam: PRESENT: oriented to time, oriented to situation, CN II-XII grossly intact Focused psych exam: ABSENT: restlessness Skin exam: PRESENT: normal color. ABSENT: mottled, pallor, urticaria, vesicles Results Laboratory Results: 09/27/18 04:00 09/27/18 04:00 09/27/18 09/27/18 04:00 04:00 WBC 7.8 RBC 3.45 L Hgb 10.4 L Hct 31.2 L MCV 91 MCH 30.3 MCHC 33.5 RDW 17.7 H Plt Count 256 Seg Neutrophils % 79.6 H Lymphocytes % 16.0 Monocytes % 4.1 Eosinophils % 0.0 Basophils % 0.3 Absolute Neutrophils 6.2 Absolute Lymphocytes 1.2 Absolute Monocytes 0.3 Absolute Eosinophils 0.0 Absolute Basophils 0.0 Sodium 134.3 L Potassium 2.9 L* Chloride 103 Carbon Dioxide 21 L Anion Gap 10 BUN 6 L Creatinine 0.74 Est GFR ( Amer) > 60 Est GFR (Non-Af Amer) > 60 Glucose 295 H Calcium 7.9 L Magnesium 1.7 Total Bilirubin 0.5 AST 65 H ALT 57 H Alkaline Phosphatase 163 H Total Protein 4.8 L Albumin 2.0 L 09/25/18 09/25/18 08:05 08:05 Creatine Kinase 26 L Troponin I < 0.012 Assessment & Plan - Diagnosis (1) Ulcerative colitis Qualifiers: Ulcerative colitis location: other ulcerative colitis Digestive disease complication type: other complication Qualified Code(s): K51.818 - Other ulcerative colitis with other complication Is this a current diagnosis for this admission?: Yes Plan: continue conservative therapy patient does not want to have any immunologics for now there is a risk since she has melanoma IV fluids, antiemetics 5 ASA medications avoid steroids and biological therapy will follow - Time Time Spent: 50 to 70 Minutes
--- NOTE | 2018-09-27 16:07 | Progress Note ---
Provider Note Provider Note: patient can be followed up at [facility] once discharged.
[2018-09-27] MEDS: FOLIC ACID/VITAMIN B COMP W-C CAPSULE PO SCH (16:33)
[2018-09-27] MEDS: INSULIN LISPRO 100 UNIT/ML 3 ML VIAL SUBCUT SCH ×2 (16:33→22:29)
[2018-09-28 05:09] LABS: ABSOLUTE RETICS # 0.043 10^6/uL (0.028-0.122); RETICULOCYTE COUNT (AUTO) 1.25 % (0.66-2.85)
[2018-09-28 05:19] LABS: IRON(TIBC) 51.4 ug/dL (37-170)
[2018-09-28] MEDS: LEVOTHYROXINE SODIUM 0.025 MG TABLET PO SCH (06:14)
[2018-09-28] MEDS: METHYLPREDNISOLONE INJ 125 MG/2 ML SDV IV SCH ×3 (06:14→21:36)
[2018-09-28] MEDS: HEPARIN SOD (PORCINE) 5,000 UNIT/ML 1 ML SYRINGE SUBCUT SCH ×3 (06:15→21:35)
[2018-09-28] MEDS: INSULIN LISPRO 100 UNIT/ML 3 ML VIAL SUBCUT SCH ×4 (08:34→21:35)
[2018-09-28] MEDS ORDERED: DRONABINOL 2.5 MG CAPSULE PO ONE ×2 (08:34→10:00)
[2018-09-28] MEDS ORDERED: DRONABINOL 2.5 MG CAPSULE PO PRN (08:34)
--- NOTE | 2018-09-28 08:45 | PDOC PROGRESS REPORT ---
Subjective Progress Note for:: 09/28/18 Subjective:: Patient is overall doing much better, only had one episode of nausea yesterday, and had only one episode of diarrhea. I had a long discussion with patient and stressed the importance of follow-up with her outpatient vibration analyst for treatment of the inflammatory bowel disease. Reason For Visit: NAUSEA, VOMITING, UC Physical Exam Vital Signs: Temp Pulse Resp BP Pulse Ox 97.9 F 85 18 122/88 H 100 09/28/18 07:47 09/28/18 07:47 09/28/18 07:47 09/28/18 07:47 09/28/18 07:47 Intake & Output 09/27/18 09/28/18 09/29/18 06:59 06:59 06:59 Intake Total 2600 3640 Output Total 1676 1200 Balance 924 2440 Weight 107.5 kg 108.2 kg General appearance: PRESENT: no acute distress, well-developed, well-nourished Head exam: PRESENT: atraumatic, normocephalic Eye exam: PRESENT: conjunctiva pink, EOMI, PERRLA. ABSENT: scleral icterus Ear exam: PRESENT: normal external ear exam Mouth exam: PRESENT: moist, tongue midline Neck exam: ABSENT: carotid bruit, JVD, lymphadenopathy, thyromegaly Respiratory exam: PRESENT: clear to auscultation brisa. ABSENT: rales, rhonchi, wheezes Cardiovascular exam: PRESENT: RRR. ABSENT: diastolic murmur, rubs, systolic murmur Pulses: PRESENT: normal dorsalis pedis pul Vascular exam: PRESENT: normal capillary refill GI/Abdominal exam: PRESENT: normal bowel sounds, soft. ABSENT: distended, guarding, mass, organolmegaly, rebound, tenderness Rectal exam: PRESENT: deferred Extremities exam: PRESENT: full ROM. ABSENT: calf tenderness, clubbing, pedal edema Neurological exam: PRESENT: alert, awake, oriented to person, oriented to place, oriented to time, oriented to situation, CN II-XII grossly intact. ABSENT: motor sensory deficit Psychiatric exam: PRESENT: appropriate affect, normal mood. ABSENT: homicidal ideation, suicidal ideation Skin exam: PRESENT: dry, intact, warm. ABSENT: cyanosis, rash Results Laboratory Results: 09/27/18 04:00 09/28/18 09/28/18 03:56 03:56 Retic Count (auto) 1.25 Absolute Retic 0.043 Iron 51.4 TIBC 110 L % Saturation 47 Ferritin 453.00 H Vitamin B12 > 1000.0 H Folate 12.30 09/25/18 09/25/18 08:05 08:05 Creatine Kinase 26 L Troponin I < 0.012 Assessment & Plan - Diagnosis (1) Nausea and vomiting in adult patient Is this a current diagnosis for this admission?: Yes Plan: Improving, secondary to inflammatory bowel disease (2) Ulcerative colitis Qualifiers: Ulcerative colitis location: other ulcerative colitis Digestive disease complication type: other complication Qualified Code(s): K51.818 - Other ulcerative colitis with other complication Is this a current diagnosis for this admission?: Yes (3) Anemia Qualifiers: Anemia type: iron deficiency Is this a current diagnosis for this admission?: Yes (4) Hx of malignant melanoma Is this a current diagnosis for this admission?: Yes
[2018-09-28] MEDS: PROMETHAZINE HCL 25 MG TABLET PO PRN (08:55)
[2018-09-28 09:04] LABS: ANION GAP 10 (5-19); BLOOD UREA NITROGEN 8 mg/dL (7-20); CALCIUM 8.5 mg/dL (8.4-10.2); CARBON DIOXIDE 20 mmol/L (22-30); CHLORIDE 108 mmol/L (98-107); GLUCOSE 158 mg/dL (75-110); SODIUM 137.8 mmol/L (137-145)
[2018-09-28 09:13] LABS: POTASSIUM 4.1 mmol/L (3.6-5.0)
[2018-09-28] MEDS: POTASSIUM CHLORIDE 10 MEQ CAPSULE.ER PO SCH (10:09)
[2018-09-28] MEDS: CYANOCOBALAMIN (VITAMIN B-12) INJ 1000 MCG/1 ML VIAL IM SCH (10:11)
[2018-09-28] MEDS: CALCIUM CARBONATE 250 MG/VITAMIN D3 125 UNIT TABLET PO SCH ×2 (10:11→17:47)
[2018-09-28] MEDS: PANTOPRAZOLE SODIUM 40 MG VIAL IV SCH (10:11)
[2018-09-28] MEDS: DEXTROSE 5%-NORMAL SALINE 1,000 ML IV PRN ×2 (13:40→21:50)
--- NOTE | 2018-09-28 14:54 | PDOC PROGRESS REPORT ---
Subjective Subjective:: This is a very pleasant 58 years old female patient with a diagnosis of ulcerative colitis, hypothyroidism, melanoma presented with chief complaint of intractable nausea and vomiting of bilious material. Patient has been managed with IV fluids, Protonix and antiemetics. Patient reported her nausea and vomiting is relatively improving. Reason For Visit: NAUSEA, VOMITING, UC Physical Exam Vital Signs: Temp Pulse Resp BP Pulse Ox 98.5 F 102 H 17 128/88 H 98 09/28/18 11:55 09/28/18 11:55 09/28/18 11:55 09/28/18 11:55 09/28/18 11:55 Intake & Output 09/27/18 09/28/18 09/29/18 06:59 06:59 06:59 Intake Total 2600 3640 1739 Output Total 1676 1200 250 Balance 924 2440 1489 Weight 107.5 kg 108.2 kg General appearance: PRESENT: no acute distress Eye exam: PRESENT: conjunctiva pink Neck exam: ABSENT: carotid bruit, JVD, lymphadenopathy, thyromegaly Respiratory exam: PRESENT: clear to auscultation brisa. ABSENT: rales, rhonchi, wheezes Cardiovascular exam: PRESENT: RRR. ABSENT: diastolic murmur, rubs, systolic murmur GI/Abdominal exam: PRESENT: normal bowel sounds, soft. ABSENT: distended, guarding, mass, organolmegaly, rebound, tenderness Neurological exam: PRESENT: alert, awake, oriented to person, oriented to place, oriented to time Psychiatric exam: PRESENT: normal mood Results Laboratory Results: 09/27/18 04:00 09/28/18 03:56 09/28/18 09/28/18 09/28/18 03:56 03:56 03:56 Retic Count (auto) 1.25 Absolute Retic 0.043 Sodium 137.8 Potassium 4.1 D Chloride 108 H Carbon Dioxide 20 L Anion Gap 10 BUN 8 Creatinine 0.72 Est GFR ( Amer) > 60 Est GFR (Non-Af Amer) > 60 Glucose 158 H Calcium 8.5 Iron 51.4 TIBC 110 L % Saturation 47 Ferritin 453.00 H Vitamin B12 > 1000.0 H Folate 12.30 09/25/18 09/25/18 08:05 08:05 Creatine Kinase 26 L Troponin I < 0.012 Assessment and Plan - Diagnosis (1) Hypokalemia Is this a current diagnosis for this admission?: Yes Plan: Has resolved (2) Intractable nausea and vomiting Qualifiers: Vomiting type: unspecified Qualified Code(s): R11.2 - Nausea with vomiting, unspecified Is this a current diagnosis for this admission?: Yes Plan: Improving (3) Hypothyroidism Qualifiers: Hypothyroidism type: acquired Qualified Code(s): E03.9 - Hypothyroidism, unspecified Is this a current diagnosis for this admission?: Yes Plan: Continue Synthroid (4) Ulcerative colitis Qualifiers: Ulcerative colitis location: ulcerative pancolitis Is this a current diagnosis for this admission?: Yes Plan: Diagnosed October 2017. She has a flare. Currently patient has been on Solu-Medrol. (5) History of melanoma Is this a current diagnosis for this admission?: Yes Plan: Follow-up with her primary oncologist (6) Chronic blood loss anemia Is this a current diagnosis for this admission?: Yes Plan: Patient has had intermittent bloody mucoid diarrhea due to her ulcerative colitis. We will supplement her with iron.
[2018-09-28] MEDS: FOLIC ACID/VITAMIN B COMP W-C CAPSULE PO SCH (17:47)
[2018-09-28] MEDS: OXYCODONE-ACETAMINOPHEN 5-325 MG TABLET PO PRN (20:13)
[2018-09-29] MEDS: HEPARIN SOD (PORCINE) 5,000 UNIT/ML 1 ML SYRINGE SUBCUT SCH ×3 (05:49→22:02)
[2018-09-29] MEDS: LEVOTHYROXINE SODIUM 0.025 MG TABLET PO SCH (05:49)
[2018-09-29] MEDS: METHYLPREDNISOLONE INJ 125 MG/2 ML SDV IV SCH ×3 (05:49→22:01)
[2018-09-29] MEDS: INSULIN LISPRO 100 UNIT/ML 3 ML VIAL SUBCUT SCH ×4 (08:00→22:01)
--- NOTE | 2018-09-29 08:40 | PDOC PROGRESS REPORT ---
Subjective Progress Note for:: 09/29/18 Subjective:: Patient is doing a little bit better but still had about 4 episodes of diarrhea and a few episodes of emesis yesterday, discussed with hospitalist team, feel that she needs another 24 hours of same dose steroids. Reason For Visit: NAUSEA, VOMITING, UC Physical Exam Vital Signs: Temp Pulse Resp BP Pulse Ox 98.6 F 95 18 129/82 H 98 09/28/18 23:28 09/28/18 23:28 09/28/18 23:28 09/28/18 23:28 09/28/18 23:28 Intake & Output 09/28/18 09/29/18 09/30/18 06:59 06:59 06:59 Intake Total 3640 3422 Output Total 1200 250 Balance 2440 3172 Weight 108.2 kg 108.1 kg Results Laboratory Results: 09/27/18 04:00 09/28/18 03:56 09/28/18 09/28/18 03:56 12:30 Sodium 137.8 Potassium 4.1 D Chloride 108 H Carbon Dioxide 20 L Anion Gap 10 BUN 8 Creatinine 0.72 Est GFR ( Amer) > 60 Est GFR (Non-Af Amer) > 60 Glucose 158 H Calcium 8.5 Stool for White Cells NO WBCs SEEN 09/25/18 09/25/18 08:05 08:05 Creatine Kinase 26 L Troponin I < 0.012 Assessment & Plan - Diagnosis (1) Nausea and vomiting in adult patient Is this a current diagnosis for this admission?: Yes Plan: Improving, related to colitis (2) Ulcerative colitis Qualifiers: Ulcerative colitis location: other ulcerative colitis Digestive disease complication type: other complication Qualified Code(s): K51.818 - Other ulcerative colitis with other complication Is this a current diagnosis for this admission?: Yes Plan: With flare, tinea with high-dose steroids for another 24 hours (3) Anemia Qualifiers: Anemia type: iron deficiency Is this a current diagnosis for this admission?: Yes Plan: Stable (4) Hx of malignant melanoma Is this a current diagnosis for this admission?: Yes Plan: Last PET/CT was negative, future PET/CT will be rescheduled until colitis is fully controlled
[2018-09-29] MEDS: CALCIUM CARBONATE 250 MG/VITAMIN D3 125 UNIT TABLET PO SCH ×2 (11:37→17:12)
[2018-09-29] MEDS: CYANOCOBALAMIN (VITAMIN B-12) INJ 1000 MCG/1 ML VIAL IM SCH (11:38)
[2018-09-29] MEDS: OXYCODONE-ACETAMINOPHEN 5-325 MG TABLET PO PRN ×2 (11:39→22:12)
[2018-09-29] MEDS: METOCLOPRAMIDE HCL 10 MG TABLET PO PRN (12:03)
[2018-09-29] MEDS: FOLIC ACID/VITAMIN B COMP W-C CAPSULE PO SCH (16:16)
[2018-09-29] MEDS: DEXTROSE 5%-NORMAL SALINE 1,000 ML IV PRN ×2 (16:29→17:16)
[2018-09-29] MEDS: METOCLOPRAMIDE HCL 10 MG TABLET PO SCH ×2 (17:05→22:01)
--- NOTE | 2018-09-29 17:08 | PDOC PROGRESS REPORT ---
Subjective Progress Note for:: 09/29/18 Subjective:: This is a very pleasant 58 years old female patient with a diagnosis of ulcerative colitis, hypothyroidism, melanoma presented with chief complaint of intractable nausea and vomiting of bilious material. Patient has been managed with IV fluids, Protonix and antiemetics. Patient reported her nausea and vomiting is relatively improving. 09/29/2018: Patient seen and examined at bedside. She states that her stool is becoming formed but still she has occasional diarrhea. She complains of rigid regurgitating bile. I discussed the case with Dr. Duarte who recommended to keep her steroid for additional days. Reason For Visit: NAUSEA, VOMITING, UC Physical Exam Vital Signs: Temp Pulse Resp BP Pulse Ox 98.1 F 87 17 127/91 H 97 09/29/18 08:54 09/29/18 08:54 09/29/18 08:54 09/29/18 08:54 09/29/18 08:54 Intake & Output 09/28/18 09/29/18 09/30/18 06:59 06:59 06:59 Intake Total 3640 3422 1000 Output Total 1200 250 Balance 2440 3172 1000 Weight 108.2 kg 108.1 kg General appearance: PRESENT: no acute distress Eye exam: PRESENT: conjunctiva pink Neck exam: ABSENT: carotid bruit, JVD, lymphadenopathy, thyromegaly Respiratory exam: PRESENT: clear to auscultation brisa. ABSENT: rales, rhonchi, wheezes Cardiovascular exam: PRESENT: RRR. ABSENT: diastolic murmur, rubs, systolic murmur GI/Abdominal exam: PRESENT: normal bowel sounds, soft. ABSENT: distended, guar ding, mass, organolmegaly, rebound, tenderness Neurological exam: PRESENT: alert, awake, oriented to person, oriented to place, oriented to time, oriented to situation. ABSENT: motor sensory deficit Results Laboratory Results: 09/27/18 04:00 09/28/18 03:56 09/25/18 09/25/18 08:05 08:05 Creatine Kinase 26 L Troponin I < 0.012 Assessment and Plan - Diagnosis (1) Hypokalemia Is this a current diagnosis for this admission?: Yes Plan: Has resolved (2) Intractable nausea and vomiting Qualifiers: Vomiting type: unspecified Qualified Code(s): R11.2 - Nausea with vomiting, unspecified Is this a current diagnosis for this admission?: Yes Plan: Improving (3) Hypothyroidism Qualifiers: Hypothyroidism type: acquired Qualified Code(s): E03.9 - Hypothyroidism, unspecified Is this a current diagnosis for this admission?: Yes Plan: Continue Synthroid (4) Ulcerative colitis Qualifiers: Ulcerative colitis location: ulcerative pancolitis Is this a current diagnosis for this admission?: Yes Plan: Diagnosed October 2017. She has a flare. Currently patient has been on Solu-Medrol. (5) History of melanoma Is this a current diagnosis for this admission?: Yes Plan: Follow-up with her primary oncologist (6) Chronic blood loss anemia Is this a current diagnosis for this admission?: Yes Plan: Patient has had intermittent bloody mucoid diarrhea due to her ulcerative colitis. We will supplement her with iron.
[2018-09-30] MEDS: OXYCODONE-ACETAMINOPHEN 5-325 MG TABLET PO PRN ×2 (06:02→21:58)
[2018-09-30] MEDS: LEVOTHYROXINE SODIUM 0.025 MG TABLET PO SCH (06:02)
[2018-09-30] MEDS: METHYLPREDNISOLONE INJ 125 MG/2 ML SDV IV SCH (06:02)
[2018-09-30] MEDS: DEXTROSE 5%-NORMAL SALINE 1,000 ML IV PRN (06:04)
[2018-09-30] MEDS: HEPARIN SOD (PORCINE) 5,000 UNIT/ML 1 ML SYRINGE SUBCUT SCH ×3 (06:12→21:46)
[2018-09-30] MEDS: INSULIN LISPRO 100 UNIT/ML 3 ML VIAL SUBCUT SCH ×4 (08:00→21:46)
--- NOTE | 2018-09-30 08:26 | PDOC PROGRESS REPORT ---
Subjective Progress Note for:: 09/30/18 Subjective:: Patient doing better, had only 1 semi-formed BM yesterday, still had episodes of regurgitation/reflux overnight. Still very weak, physical therapy is good to work with her today. Discussed with Dr. Bradford to consider changing IV steroids to oral. Reason For Visit: NAUSEA, VOMITING, UC Physical Exam Vital Signs: Temp Pulse Resp BP Pulse Ox 97.7 F 86 18 115/89 H 99 09/29/18 17:02 09/29/18 17:02 09/29/18 17:02 09/29/18 17:02 09/29/18 17:02 Intake & Output 09/29/18 09/30/18 10/01/18 06:59 06:59 06:59 Intake Total 3422 3548 Output Total 250 Balance 3172 3548 Weight 108.1 kg 114.9 kg General appearance: PRESENT: no acute distress, well-developed, well-nourished Head exam: PRESENT: atraumatic, normocephalic Eye exam: PRESENT: conjunctiva pink, EOMI, PERRLA. ABSENT: scleral icterus Ear exam: PRESENT: normal external ear exam Mouth exam: PRESENT: moist, tongue midline Neck exam: ABSENT: carotid bruit, JVD, lymphadenopathy, thyromegaly Respiratory exam: PRESENT: clear to auscultation brisa. ABSENT: rales, rhonchi, wheezes Cardiovascular exam: PRESENT: RRR. ABSENT: diastolic murmur, rubs, systolic murmur Pulses: PRESENT: normal dorsalis pedis pul Vascular exam: PRESENT: normal capillary refill GI/Abdominal exam: PRESENT: normal bowel sounds, soft. ABSENT: distended, guarding, mass, organolmegaly, rebound, tenderness Rectal exam: PRESENT: deferred Extremities exam: PRESENT: full ROM. ABSENT: calf tenderness, clubbing, pedal edema Neurological exam: PRESENT: alert, awake, oriented to person, oriented to place, oriented to time, oriented to situation, CN II-XII grossly intact. ABSENT: motor sensory deficit Psychiatric exam: PRESENT: appropriate affect, normal mood. ABSENT: homicidal ideation, suicidal ideation Skin exam: PRESENT: dry, intact, warm. ABSENT: cyanosis, rash Results Laboratory Results: 09/27/18 04:00 09/28/18 03:56 09/25/18 09/25/18 08:05 08:05 Creatine Kinase 26 L Troponin I < 0.012 Assessment & Plan - Diagnosis (1) Nausea and vomiting in adult patient Is this a current diagnosis for this admission?: Yes Plan: Improving, continued on supportive measures, secondary to colitis (2) Ulcerative colitis Qualifiers: Ulcerative colitis location: other ulcerative colitis Digestive disease c omplication type: other complication Qualified Code(s): K51.818 - Other ulcerative colitis with other complication Is this a current diagnosis for this admission?: Yes Plan: Severe flare improving, transition IV to oral steroids, told patient to get in with her outpatient lopper [facility]. Hopefully she can get an appointment soon. She will need another 24 hours inpatient to see if the t ransition oral steroids is tolerated well. (3) Anemia Qualifiers: Anemia type: iron deficiency Iron deficiency anemia type: chronic blood loss Qualified Code(s): D50.0 - Iron deficiency anemia secondary to blood loss (chronic) Is this a current diagnosis for this admission?: Yes Plan: Chronic blood loss anemia but also anemia of chronic disease. Hemoglobin has been over 9 so we will monitor, if it gets under 8 we will need to consider transfusion. Her ferritin was normal so IV iron will not help her. (4) Hx of malignant melanoma Is this a current diagnosis for this admission?: Yes Plan: Patient will need to fully defervesced from this flare, see her gastroenterologi st, then only will she see us and we will reorder PET scan. - Time Time Spent with patient: 35 or more minutes - Inpatient Certification Based on my medical assessment, after consideration of the patient's comorbidities, presenting symptoms, or acuity I expect that the services needed warrant INPATIENT care.: Yes I certify that my determination is in accordance with my understanding of Medicare's requirements for reasonable and necessary INPATIENT services [42 CFR 412.3e].: Yes Medical Necessity: Risk of Complication if Not Cared For in Hospital, Other - Need for IV steroids transition to oral today
[2018-09-30] MEDS: CALCIUM CARBONATE 250 MG/VITAMIN D3 125 UNIT TABLET PO SCH ×2 (10:26→17:25)
[2018-09-30] MEDS: METOCLOPRAMIDE HCL 10 MG TABLET PO SCH ×3 (10:27→15:50)
[2018-09-30] MEDS: CYANOCOBALAMIN (VITAMIN B-12) INJ 1000 MCG/1 ML VIAL IM SCH (10:32)
[2018-09-30] MEDS: FOLIC ACID/VITAMIN B COMP W-C CAPSULE PO SCH (15:50)
--- NOTE | 2018-09-30 17:39 | PDOC PROGRESS REPORT ---
Subjective Progress Note for:: 09/30/18 Subjective:: This is a very pleasant 58 years old female patient with a diagnosis of ulcerative colitis, hypothyroidism, melanoma presented with chief complaint of intractable nausea and vomiting of bilious material. Patient has been managed with IV fluids, Protonix and antiemetics. Patient reported her nausea and vomiting is relatively improving. 09/29/2018: Patient seen and examined at bedside. She states that her stool is becoming formed but still she has occasional diarrhea. She complains of regurgitating bile. I discussed the case with Dr. Duarte who recommended to keep her steroid for additional days. 09/30/2018: Patient reported that she is feeling better. Her diarrhea is subsiding. I switched her Solu-Medrol to p.o. prednisone 60 mg daily. She is potential discharge for tomorrow if she remains stable. Reason For Visit: NAUSEA, VOMITING, UC Physical Exam Vital Signs: Temp Pulse Resp BP Pulse Ox 97.8 F 90 18 130/84 H 98 09/30/18 13:08 09/30/18 13:08 09/30/18 13:08 09/30/18 13:08 09/30/18 13:08 Intake & Output 09/29/18 09/30/18 10/01/18 06:59 06:59 06:59 Intake Total 3422 3548 Output Total 250 Balance 3172 3548 Weight 108.1 kg 114.9 kg General appearance: PRESENT: no acute distress, obese Mouth exam: PRESENT: moist Respiratory exam: PRESENT: clear to auscultation brisa. ABSENT: rales, rhonchi, wheezes Pulses: PRESENT: normal dorsalis pedis pul GI/Abdominal exam: PRESENT: normal bowel sounds, soft. ABSENT: distended, guarding, mass, organolmegaly, rebound, tenderness Neurological exam: PRESENT: alert, awake, oriented to person, oriented to place, oriented to time, oriented to situation Results Laboratory Results: 09/27/18 04:00 09/28/18 03:56 09/25/18 09/25/18 08:05 08:05 Creatine Kinase 26 L Troponin I < 0.012 Assessment and Plan - Diagnosis (1) Hypokalemia Is this a current diagnosis for this admission?: Yes Plan: Has resolved (2) Intractable nausea and vomiting Qualifiers: Vomiting type: unspecified Qualified Code(s): R11.2 - Nausea with vomiting, unspecified Is this a current diagnosis for this admission?: Yes Plan: Improving (3) Hypothyroidism Qualifiers: Hypothyroidism type: acquired Qualified Code(s): E03.9 - Hypothyroidism, unspecified Is this a current diagnosis for this admission?: Yes Plan: Continue Synthroid (4) Ulcerative colitis Qualifiers: Ulcerative colitis location: ulcerative pancolitis Is this a current diagnosis for this admission?: Yes Plan: Diagnosed October 2017. She has a flare. Currently patient has been on Solu-Medrol. (5) History of melanoma Is this a current diagnosis for this admission?: Yes Plan: Follow-up with her primary oncologist (6) Chronic blood loss anemia Is this a current diagnosis for this admission?: Yes Plan: Patient has had intermittent bloody mucoid diarrhea due to her ulcerative colitis. We will supplement her with iron.
[2018-09-30] MEDS ORDERED: METOCLOPRAMIDE HCL INJ/PF 10 MG/2 ML SDV IV ONE (18:00)
[2018-09-30] MEDS ORDERED: FUROSEMIDE INJ/PF 40 MG/4 ML SDV IV ONE (18:00)
[2018-09-30] MEDS: METOCLOPRAMIDE HCL INJ/PF 10 MG/2 ML SDV IV SCH (21:58)
[2018-10-01] MEDS: OXYCODONE-ACETAMINOPHEN 5-325 MG TABLET PO PRN ×2 (05:31→21:20)
[2018-10-01] MEDS: LEVOTHYROXINE SODIUM 0.025 MG TABLET PO SCH (05:32)
[2018-10-01] MEDS: HEPARIN SOD (PORCINE) 5,000 UNIT/ML 1 ML SYRINGE SUBCUT SCH ×3 (05:32→21:18)
[2018-10-01 05:54] LABS: HEMATOCRIT 33.6 % (36.0-47.0); HEMOGLOBIN 11.2 g/dL (12.0-15.5); MEAN CORPUSCULAR HEMOGLOBIN 29.9 pg (27.0-33.4); MEAN CORPUSCULAR HGB CONC 33.4 g/dL (32.0-36.0); MEAN CORPUSCULAR VOLUME 89 fl (80-97); PLATELET COUNT 418 10^3/uL (150-450); RED BLOOD COUNT 3.76 10^6/uL (3.72-5.28); RED CELL DISTRIBUTION WIDTH 18.2 % (11.5-14.0); WHITE BLOOD COUNT 23.2 10^3/uL (4.0-10.5)
[2018-10-01 06:05] LABS: ANION GAP 8 (5-19); BLOOD UREA NITROGEN 23 mg/dL (7-20); CALCIUM 8.9 mg/dL (8.4-10.2); CARBON DIOXIDE 24 mmol/L (22-30); CHLORIDE 104 mmol/L (98-107); GLUCOSE 80 mg/dL (75-110); POTASSIUM 4.8 mmol/L (3.6-5.0); SODIUM 136.2 mmol/L (137-145)
[2018-10-01] MEDS: INSULIN LISPRO 100 UNIT/ML 3 ML VIAL SUBCUT SCH ×4 (07:24→21:18)
--- NOTE | 2018-10-01 08:07 | PDOC PROGRESS REPORT ---
Subjective Progress Note for:: 10/01/18 Subjective:: Pt doing better, was able to walk yesterday. Reviewed labs, hb stable, wt ct elevated but likely 2nd to steroid effect. Reason For Visit: NAUSEA, VOMITING, UC Physical Exam Vital Signs: Temp Pulse Resp BP Pulse Ox 97.5 F 99 17 130/71 H 97 09/30/18 23:35 09/30/18 23:35 09/30/18 23:35 09/30/18 23:35 09/30/18 23:35 Intake & Output 09/30/18 10/01/18 10/02/18 06:59 06:59 06:59 Intake Total 3548 2376 Output Total 1600 Balance 3548 776 Weight 114.9 kg 114.6 kg General appearance: PRESENT: no acute distress, well-developed, well-nourished Head exam: PRESENT: atraumatic, normocephalic Eye exam: PRESENT: conjunctiva pink, EOMI, PERRLA. ABSENT: scleral icterus Ear exam: PRESENT: normal external ear exam Mouth exam: PRESENT: moist, tongue midline Neck exam: ABSENT: carotid bruit, JVD, lymphadenopathy, thyromegaly Respiratory exam: PRESENT: clear to auscultation brisa. ABSENT: rales, rhonchi, wheezes Cardiovascular exam: PRESENT: RRR. ABSENT: diastolic murmur, rubs, systolic murmur Pulses: PRESENT: normal dorsalis pedis pul Vascular exam: PRESENT: normal capillary refill GI/Abdominal exam: PRESENT: normal bowel sounds, soft. ABSENT: distended, guarding, mass, organolmegaly, rebound, tenderness Rectal exam: PRESENT: deferred Extremities exam: PRESENT: full ROM. ABSENT: calf tenderness, clubbing, pedal edema Neurological exam: PRESENT: alert, awake, oriented to person, oriented to place, oriented to time, oriented to situation, CN II-XII grossly intact. ABSENT: m otor sensory deficit Psychiatric exam: PRESENT: appropriate affect, normal mood. ABSENT: homicidal ideation, suicidal ideation Skin exam: PRESENT: dry, intact, warm. ABSENT: cyanosis, rash Results Laboratory Results: 10/01/18 05:29 10/01/18 05:29 10/01/18 10/01/18 05:29 05:29 WBC 23.2 H RBC 3.76 Hgb 11.2 L Hct 33.6 L MCV 89 MCH 29.9 MCHC 33.4 RDW 18.2 H Plt Count 418 Sodium 136.2 L Potassium 4.8 Chloride 104 Carbon Dioxide 24 Anion Gap 8 BUN 23 H Creatinine 0.89 Est GFR ( Amer) > 60 Est GFR (Non-Af Amer) > 60 Glucose 80 Calcium 8.9 09/25/18 09/25/18 08:05 08:05 Creatine Kinase 26 L Troponin I < 0.012 Assessment & Plan - Diagnosis (1) Nausea and vomiting in adult patient Is this a current diagnosis for this admission?: Yes Plan: Improved, believe pt maybe to d/c home on oral steroids (2) Ulcerative colitis Qualifiers: Ulcerative colitis location: other ulcerative colitis Digestive disease complication type: other complication Qualified Code(s): K51.818 - Other ulcerative colitis with other complication Is this a current diagnosis for this admission?: Yes Plan: Flare getting better, con't oral steroids, would give 1 month taper to pt. Pt called [facility], and notes the violent crimes detective will call her back w/ appt s o hopefully she will be seen next wk (3) Anemia Qualifiers: Anemia type: iron deficiency Iron deficiency anemia type: chronic blood loss Qualified Code(s): D50.0 - Iron deficiency anemia secondary to blood loss (chronic) Is this a current diagnosis for this admission?: Yes Plan: hb stable (4) Hx of malignant melanoma Is this a current diagnosis for this admission?: Yes Plan: Will have f/u in our office once [facility] auth reauthorized for us to see pt. She will get in touch w/ her PCP at [facility] to do this.
[2018-10-01] MEDS: METOCLOPRAMIDE HCL INJ/PF 10 MG/2 ML SDV IV SCH ×4 (08:53→21:18)
[2018-10-01] MEDS: CYANOCOBALAMIN (VITAMIN B-12) INJ 1000 MCG/1 ML VIAL IM SCH (09:33)
[2018-10-01] MEDS: CALCIUM CARBONATE 250 MG/VITAMIN D3 125 UNIT TABLET PO SCH ×2 (09:34→17:10)
[2018-10-01] MEDS: PREDNISONE 20 MG TABLET PO SCH (09:34)
--- NOTE | 2018-10-01 15:10 | PDOC PROGRESS REPORT ---
Subjective Subjective:: This is a very pleasant 58 years old female patient with a diagnosis of ulcerative colitis, hypothyroidism, melanoma presented with chief complaint of intractable nausea and vomiting of bilious material. Patient has been managed with IV fluids, Protonix and antiemetics. Patient reported her nausea and vomiting is relatively improving. 09/29/2018: Patient seen and examined at bedside. She states that her stool is becoming formed but still she has occasional diarrhea. She complains of regurgitating bile. I discussed the case with Dr. Duarte who recommended to keep her steroid for additional days. 09/30/2018: Patient reported that she is feeling better. Her diarrhea is subsiding. I switched her Solu-Medrol to p.o. prednisone 60 mg daily. She is potential discharge for tomorrow if she remains stable. 09/20/2018: Patient seen while she is resting in bed. She states she has difficulty to get out of bed. She states she cannot go home like this. 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 Reason For Visit: NAUSEA, VOMITING, UC Physical Exam Vital Signs: Temp Pulse Resp BP Pulse Ox 97.6 F 98 14 106/74 98 10/01/18 11:35 10/01/18 11:35 10/01/18 11:35 10/01/18 11:35 10/01/18 11:35 Intake & Output 09/30/18 10/01/18 10/02/18 06:59 06:59 06:59 Intake Total 3548 2376 Output Total 1600 Balance 3548 776 Weight 114.9 kg 114.6 kg General appearance: PRESENT: no acute distress Eye exam: PRESENT: conjunctiva pink Respiratory exam: PRESENT: clear to auscultation brisa. ABSENT: rales, rhonchi, wheezes GI/Abdominal exam: PRESENT: normal bowel sounds, soft. ABSENT: distended, guarding, mass, organolmegaly, rebound, tenderness Neurological exam: PRESENT: alert, awake, oriented to person, oriented to place, oriented to time, oriented to situation Results Laboratory Results: 10/01/18 05:29 10/01/18 05:29 10/01/18 10/01/18 05:29 05:29 WBC 23.2 H RBC 3.76 Hgb 11.2 L Hct 33.6 L MCV 89 MCH 29.9 MCHC 33.4 RDW 18.2 H Plt Count 418 Sodium 136.2 L Potassium 4.8 Chloride 104 Carbon Dioxide 24 Anion Gap 8 BUN 23 H Creatinine 0.89 Est GFR ( Amer) > 60 Est GFR (Non-Af Amer) > 60 Glucose 80 Calcium 8.9 09/25/18 09/25/18 08:05 08:05 Creatine Kinase 26 L Troponin I < 0.012 Assessment and Plan - Diagnosis (1) Leukocytosis Is this a current diagnosis for this admission?: Yes Plan: Most likely related to steroid. (2) Hypokalemia Is this a current diagnosis for this admission?: Yes Plan: Has resolved (3) Intractable nausea and vomiting Qualifiers: Vomiting type: unspecified Qualified Code(s): R11.2 - Nausea with vomiting, unspecified Is this a current diagnosis for this admission?: Yes Plan: Improving (4) Hypothyroidism Qualifiers: Hypothyroidism type: acquired Qualified Code(s): E03.9 - Hypothyroidism, unspecified Is this a current diagnosis for this admission?: Yes Plan: Continue Synthroid (5) Ulcerative colitis Qualifiers: Ulcerative colitis location: ulcerative pancolitis Is this a current diagnosis for this admission?: Yes Plan: Diagnosed October 2017. She has a flare. Currently patient has been on Solu-Medrol. (6) History of melanoma Is this a current diagnosis for this admission?: Yes Plan: Follow-up with her primary oncologist (7) Chronic blood loss anemia Is this a current diagnosis for this admission?: Yes Plan: Patient has had intermittent bloody mucoid diarrhea due to her ulcerative colitis. We will supplement her with iron.
[2018-10-01] MEDS: FOLIC ACID/VITAMIN B COMP W-C CAPSULE PO SCH (16:33)
--- NOTE | 2018-10-01 19:28 | XCELERA REPORT ---
[address] [address] Transthoracic Echocardiogram Report Name: MELI MCQUEEN Age: 58 yrs Gender: Female : 1960 Patient Status: Inpatient Patient Location: [address] [place] [address] Study Date: 10/01/2018 12:24 PM Height: 69 in Weight: 253 lb BSA: 2.3 m2 Procedure: A two-dimensional transthoracic echocardiogram with color flow and Doppler was performed. The study was technically difficult with many images being suboptimal in quality. Reason For Study: CHF History: CHF. Ordering Physician: ALBERT MORAN Performed By: Lillian Ambrocio Interpretation Summary The left ventricle is normal in size. There is normal left ventricular wall thickness. LV EF is > THAN 60% The left ventricular ejection fraction is within normal limits. Doppler measurements suggest normal left ventricular diastolic function ; BY tissue dopplers. The left ventricular wall motion is normal. There is no thrombus. Probably no ASD,VSD . or PFO. The right ventricle is normal in size and function. The right ventricle is not well visualized secondary to technical limitations The right atrium is normal. The left atrial size is normal. There is no evidence of mitral valve prolapse. There is no vegetation seen on the mitral valve. There is no mitral valve stenosis. There is no mitral regurgitation noted. There is no aortic valvular vegetation. There is no aortic valve stenosis There is no LVOT obstruction. No aortic regurgitation is present. There is no tricuspid stenosis. There is a trace amount of tricuspid regurgitation Right ventricular systolic pressure is normal. RVSP is 23 to 28 mm of Hg , with RA mean of 5 to 10. There is no pulmonic valvular stenosis. There is a mild amount of pulmonic regurgitation The inferior vena cava appeared normal and decreased > 50% with respiration (RAP 5-10 mmHg) There is no pericardial effusion. MMode/2D Measurements & Calculations RVDd: 2.9 cm LVIDd: 4.4 cm FS: 32.4 % Ao root diam: 3.4 cm IVSd: 0.99 cm LVIDs: 3.0 cm EDV(Teich): 87.1 ml Ao root area: 9.1 cm2 LVPWd: 0.96 cm ESV(Teich): 34.0 ml LA dimension: 3.4 cm EF(Teich): 61.0 % Doppler Measurements & Calculations MV E max warren: MV P1/2t max warren: Ao V2 max: LV V1 max P.6 cm/sec 72.0 cm/sec 134.5 cm/sec 5.3 mmHg MV A max warren: MV P1/2t: 67.0 msec Ao max PG: LV V1 max: 74.4 cm/sec MVA(P1/2t): 3.3 cm2 7.2 mmHg 115.6 cm/sec MV E/A: 0.96 MV dec slope: 314.5 cm/sec2 MV dec time: 0.23 sec PA V2 max: PI end-d warren: TR max warren: MV P1/2t-pr_phl: 80.9 cm/sec 102.8 cm/sec 210.4 cm/sec 67.0 msec PA max PG: TR max P.6 mmHg 17.7 mmHg Left Ventricle The left ventricle is normal in size. There is normal left ventricular wall thickness. LV EF is > THAN 60%. The left ventricular ejection fraction is within normal limits. Doppler measurements suggest normal left ventricular diastolic function. ; BY tissue dopplers. The left ventricular wall motion is normal. There is no thrombus. Probably no ASD,VSD . or PFO. Right Ventricle The right ventricle is normal in size and function. The right ventricle is not well visualized secondary to technical limitations. Atria The right atrium is normal. The left atrial size is normal. Mitral Valve There is no evidence of mitral valve prolapse. There is no vegetation seen on the mitral valve. There is no mitral valve stenosis. There is no mitral regurgitation noted. Aortic Valve There is no aortic valvular vegetation. There is no aortic valve stenosis. There is no LVOT obstruction. No aortic regurgitation is present. Tricuspid Valve There is no tricuspid stenosis. There is a trace amount of tricuspid regurgitation. Right ventricular systolic pressure is normal. RVSP is 23 to 28 mm of Hg , with RA mean of 5 to 10. Pulmonic Valve There is no pulmonic valvular stenosis. There is a mild amount of pulmonic regurgitation. Great Vessels The inferior vena cava appeared normal and decreased > 50% with respiration (RAP 5-10 mmHg). Effusions There is no pericardial effusion. : ALBERT MORAN > Kayla Haddad
[2018-10-02] MEDS: HEPARIN SOD (PORCINE) 5,000 UNIT/ML 1 ML SYRINGE SUBCUT SCH ×3 (05:39→21:40)
[2018-10-02] MEDS: LEVOTHYROXINE SODIUM 0.025 MG TABLET PO SCH (05:39)
[2018-10-02] MEDS: OXYCODONE-ACETAMINOPHEN 5-325 MG TABLET PO PRN (05:39)
[2018-10-02] MEDS: INSULIN LISPRO 100 UNIT/ML 3 ML VIAL SUBCUT SCH ×4 (07:08→21:35)
[2018-10-02] MEDS: METOCLOPRAMIDE HCL INJ/PF 10 MG/2 ML SDV IV SCH ×4 (07:09→21:40)
[2018-10-02] MEDS: PREDNISONE 20 MG TABLET PO SCH (09:38)
[2018-10-02] MEDS: CALCIUM CARBONATE 250 MG/VITAMIN D3 125 UNIT TABLET PO SCH ×2 (09:38→17:07)
[2018-10-02] MEDS: CYANOCOBALAMIN (VITAMIN B-12) INJ 1000 MCG/1 ML VIAL IM SCH (09:38)
--- NOTE | 2018-10-02 11:51 | PDOC PROGRESS REPORT ---
Subjective Progress Note for:: 10/02/18 Subjective:: This is a very pleasant 58 years old female patient with a diagnosis of ulcerative colitis, hypothyroidism, melanoma presented with chief complaint of intractable nausea and vomiting of bilious material. Patient has been managed with IV fluids, Protonix and antiemetics. Patient reported her nausea and vomiting is relatively improving. 09/29/2018: Patient seen and examined at bedside. She states that her stool is becoming formed but still she has occasional diarrhea. She complains of regurgitating bile. I discussed the case with Dr. Duarte who recommended to keep her steroid for additional days. 09/30/2018: Patient reported that she is feeling better. Her diarrhea is subsiding. I switched her Solu-Medrol to p.o. prednisone 60 mg daily. She is potential discharge for tomorrow if she remains stable. 10/01/2018: Patient seen while she is resting in bed. She states she has difficulty to get out of bed. She states she cannot go home like this. machine worker has been working on home health and answer durable equipment that patient needs. 10/02/2018: Patient seen sitting on recliner. Patient still complains of weakness in her lower leg. Vanessa internet media planner states "patient is pending DME and HHC from the [place]" she is potential discharge for Thursday. Reason For Visit: NAUSEA, VOMITING, UC Physical Exam Vital Signs: Temp Pulse Resp BP Pulse Ox 97.7 F 109 H 19 109/79 96 10/02/18 08:00 10/02/18 08:00 10/02/18 08:00 10/02/18 08:00 10/02/18 08:00 Intake & Output 10/01/18 10/02/18 10/03/18 06:59 06:59 06:59 Intake Total 2376 1448 Output Total 1600 0 Balance 776 1448 Weight 114.6 kg 113.9 kg General appearance: PRESENT: no acute distress Head exam: PRESENT: atraumatic Eye exam: PRESENT: conjunctiva pink Neck exam: ABSENT: carotid bruit, JVD, lymphadenopathy, thyromegaly Respiratory exam: PRESENT: clear to auscultation brisa. ABSENT: rales, rhonchi, wheezes Cardiovascular exam: PRESENT: RRR. ABSENT: diastolic murmur, rubs, systolic murmur GI/Abdominal exam: PRESENT: normal bowel sounds, soft. ABSENT: distended, guarding, mass, organolmegaly, rebound, tenderness Neurological exam: PRESENT: alert, awake, oriented to person, oriented to place, oriented to time, oriented to situation Results Laboratory Results: 10/01/18 05:29 10/01/18 05:29 09/28/18 12:30 Stool - Stool - Final 09/25/18 09/25/18 08:05 08:05 Creatine Kinase 26 L Troponin I < 0.012 Assessment and Plan - Diagnosis (1) Leukocytosis Is this a current diagnosis for this admission?: Yes Plan: Most likely related to steroid. (2) Hypokalemia Is this a current diagnosis for this admission?: Yes Plan: Has resolved (3) Intractable nausea and vomiting Qualifiers: Vomiting type: unspecified Qualified Code(s): R11.2 - Nausea with vomiting, unspecified Is this a current diagnosis for this admission?: Yes Plan: Improving (4) Hypothyroidism Qualifiers: Hypothyroidism type: acquired Qualified Code(s): E03.9 - Hypothyroidism, unspecified Is this a current diagnosis for this admission?: Yes Plan: Continue Synthroid (5) Ulcerative colitis Qualifiers: Ulcerative colitis location: ulcerative pancolitis Is this a current diagnosis for this admission?: Yes Plan: Diagnosed October 2017. She has a flare. Currently patient has been on Solu-Medrol. (6) History of melanoma Is this a current diagnosis for this admission?: Yes Plan: Follow-up with her primary oncologist (7) Chronic blood loss anemia Is this a current diagnosis for this admission?: Yes Plan: Patient has had intermittent bloody mucoid diarrhea due to her ulcerative colitis. We will supplement her with iron.
[2018-10-02] MEDS: FOLIC ACID/VITAMIN B COMP W-C CAPSULE PO SCH (16:41)
[2018-10-02] MEDS: ACETAMINOPHEN 325 MG TABLET PO PRN (21:48)
[2018-10-03] MEDS: HEPARIN SOD (PORCINE) 5,000 UNIT/ML 1 ML SYRINGE SUBCUT SCH ×3 (05:45→21:02)
[2018-10-03] MEDS: LEVOTHYROXINE SODIUM 0.025 MG TABLET PO SCH (05:49)
[2018-10-03] MEDS: INSULIN LISPRO 100 UNIT/ML 3 ML VIAL SUBCUT SCH ×4 (07:04→21:50)
[2018-10-03] MEDS: METOCLOPRAMIDE HCL INJ/PF 10 MG/2 ML SDV IV SCH ×4 (07:04→21:02)
[2018-10-03] MEDS: PREDNISONE 20 MG TABLET PO SCH (09:07)
[2018-10-03] MEDS: CYANOCOBALAMIN (VITAMIN B-12) INJ 1000 MCG/1 ML VIAL IM SCH (09:07)
[2018-10-03] MEDS: CALCIUM CARBONATE 250 MG/VITAMIN D3 125 UNIT TABLET PO SCH ×2 (09:07→17:12)
--- NOTE | 2018-10-03 12:06 | PDOC PROGRESS REPORT ---
Subjective Progress Note for:: 10/03/18 Subjective:: This is a very pleasant 58 years old female patient with a diagnosis of ulcerative colitis, hypothyroidism, melanoma presented with chief complaint of intractable nausea and vomiting of bilious material. Patient has been managed with IV fluids, Protonix and antiemetics. Patient reported her nausea and vomiting is relatively improving. 09/29/2018: Patient seen and examined at bedside. She states that her stool is becoming formed but still she has occasional diarrhea. She complains of regurgitating bile. I discussed the case with Dr. Duarte who recommended to keep her steroid for additional days. 09/30/2018: Patient reported that she is feeling better. Her diarrhea is subsiding. I switched her Solu-Medrol to p.o. prednisone 60 mg daily. She is potential discharge for tomorrow if she remains stable. 10/01/2018: Patient seen while she is resting in bed. She states she has difficulty to get out of bed. She states she cannot go home like this. nail mill worker has been working on home health and answer durable equipment that patient needs. 10/02/2018: Patient seen sitting on recliner. Patient still complains of weakness in her lower leg. Vanessa internet media planner states "patient is pending DME and HHC from the [place]" she is potential discharge for Thursday. 10/03/2018: Patient seen resting in bed comfortably. She is awake alert nikita ented. I tapered with her steroid from 60 mg p.o. daily to 40 mg p.o. daily. She is potential discharge for tomorrow. Reason For Visit: NAUSEA, VOMITING, UC Physical Exam Vital Signs: Temp Pulse Resp BP Pulse Ox 98.0 F 81 21 H 126/85 H 98 10/03/18 11:54 10/03/18 11:54 10/03/18 11:54 10/03/18 11:54 10/03/18 11:54 Intake & Output 10/02/18 10/03/18 10/04/18 06:59 06:59 06:59 Intake Total 1448 3220 Output Total 0 Balance 1448 3220 Weight 113.9 kg 114.2 kg General appearance: PRESENT: no acute distress Neurological exam: PRESENT: alert, awake, oriented to person, oriented to place, oriented to time, oriented to situation Results Laboratory Results: 10/01/18 05:29 10/01/18 05:29 09/28/18 12:30 Stool - Stool - Final 09/28/18 12:30 Stool - Stool Stool Culture - Final NO SALMONELLA, SHIGELLA, CAMPYLOBACTER, OR E.COLI 0157 RECOVERED. NEGATIVE FOR SHIGA TOXINS 1&2. 09/25/18 09/25/18 08:05 08:05 Creatine Kinase 26 L Troponin I < 0.012 Assessment and Plan - Diagnosis (1) Leukocytosis Is this a current diagnosis for this admission?: Yes Plan: Most likely related to steroid. (2) Hypokalemia Is this a current diagnosis for this admission?: Yes Plan: Has resolved (3) Intractable nausea and vomiting Qualifiers: Vomiting type: unspecified Qualified Code(s): R11.2 - Nausea with vomiting, unspecified Is this a current diagnosis for this admission?: Yes Plan: Improving (4) Hypothyroidism Qualifiers: Hypothyroidism type: acquired Qualified Code(s): E03.9 - Hypothyroidism, unspecified Is this a current diagnosis for this admission?: Yes Plan: Continue Synthroid (5) Ulcerative colitis Qualifiers: Ulcerative colitis location: ulcerative pancolitis Is this a current diagnosis for this admission?: Yes Plan: Diagnosed October 2017. She has a flare. Currently patient has been on Solu-Medrol. (6) History of melanoma Is this a current diagnosis for this admission?: Yes Plan: Follow-up with her primary oncologist (7) Chronic blood loss anemia Is this a current diagnosis for this admission?: Yes Plan: Patient has had intermittent bloody mucoid diarrhea due to her ulcerative colitis. We will supplement her with iron.
[2018-10-03] MEDS: ACETAMINOPHEN 325 MG TABLET PO PRN ×2 (15:36→20:04)
[2018-10-03] MEDS: FOLIC ACID/VITAMIN B COMP W-C CAPSULE PO SCH (16:54)
[2018-10-04] MEDS: HEPARIN SOD (PORCINE) 5,000 UNIT/ML 1 ML SYRINGE SUBCUT SCH ×3 (05:05→22:03)
[2018-10-04] MEDS: LEVOTHYROXINE SODIUM 0.025 MG TABLET PO SCH (05:16)
[2018-10-04] MEDS: METOCLOPRAMIDE HCL INJ/PF 10 MG/2 ML SDV IV SCH ×4 (07:10→22:03)
[2018-10-04] MEDS: INSULIN LISPRO 100 UNIT/ML 3 ML VIAL SUBCUT SCH ×4 (07:10→22:03)
[2018-10-04] MEDS: ACETAMINOPHEN 325 MG TABLET PO PRN ×2 (09:33→19:53)
[2018-10-04] MEDS: CALCIUM CARBONATE 250 MG/VITAMIN D3 125 UNIT TABLET PO SCH ×2 (09:34→17:08)
[2018-10-04] MEDS: CYANOCOBALAMIN (VITAMIN B-12) INJ 1000 MCG/1 ML VIAL IM SCH (09:34)
[2018-10-04] MEDS: PREDNISONE 20 MG TABLET PO SCH (09:35)
[2018-10-04] MEDS ORDERED: PROMETHAZINE HCL 25 MG TABLET PO PRN (15:28)
--- NOTE | 2018-10-04 16:28 | PDOC PROGRESS REPORT ---
Subjective Subjective:: This is a very pleasant 58 years old female patient with a diagnosis of ulcerative colitis, hypothyroidism, melanoma presented with chief complaint of intractable nausea and vomiting of bilious material. Patient has been managed with IV fluids, Protonix and antiemetics. Patient reported her nausea and vomiting is relatively improving. 09/29/2018: Patient seen and examined at bedside. She states that her stool is becoming formed but still she has occasional diarrhea. She complains of regurgitating bile. I discussed the case with Dr. Duarte who recommended to keep her steroid for additional days. 09/30/2018: Patient reported that she is feeling better. Her diarrhea is subsiding. I switched her Solu-Medrol to p.o. prednisone 60 mg daily. She is potential discharge for tomorrow if she remains stable. 10/01/2018: Patient seen while she is resting in bed. She states she has difficulty to get out of bed. She states she cannot go home like this. culinary worker has been working on home health and answer durable equipment that patient needs. 10/02/2018: Patient seen sitting on recliner. Patient still complains of weakness in her lower leg. Vanessa materials planner/production planner states "patient is pending DME and HHC from the [place]" she is potential discharge for Thursday. 10/03/2018: Patient seen resting in bed comfortably. She is awake alert oriented. I tapered with her steroid from 60 mg p.o. daily to 40 mg p.o. daily. She is potential discharge for tomorrow. 10/04/2018: Patient participated with physical therapy today. Her leg weakness is relatively improving. Still waiting for response from [place]. No new complaint. Reason For Visit: NAUSEA, VOMITING, UC Physical Exam Vital Signs: Temp Pulse Resp BP Pulse Ox 97.8 F 88 15 128/80 H 98 10/04/18 12:06 10/04/18 12:06 10/04/18 12:06 10/04/18 12:06 10/04/18 12:06 Intake & Output 10/03/18 10/04/18 10/05/18 06:59 06:59 06:59 Intake Total 3220 2950 Balance 3220 2950 Weight 114.2 kg 114.2 kg General appearance: PRESENT: no acute distress Mouth exam: PRESENT: moist Respiratory exam: PRESENT: accessory muscle use GI/Abdominal exam: PRESENT: normal bowel sounds, soft. ABSENT: distended, guarding, mass, organolmegaly, rebound, tenderness Neurological exam: PRESENT: alert, awake, oriented to person, oriented to place, oriented to time, oriented to situation Results Laboratory Results: 10/01/18 05:29 10/01/18 05:29 09/25/18 09/25/18 08:05 08:05 Creatine Kinase 26 L Troponin I < 0.012 Assessment and Plan - Diagnosis (1) Leukocytosis Is this a current diagnosis for this admission?: Yes Plan: Most likely related to steroid. (2) Hypokalemia Is this a current diagnosis for this admission?: Yes Plan: Has resolved (3) Intractable nausea and vomiting Qualifiers: Vomiting type: unspecified Qualified Code(s): R11.2 - Nausea with vomiting, unspecified Is this a current diagnosis for this admission?: Yes Plan: Improving (4) Hypothyroidism Qualifiers: Hypothyroidism type: acquired Qualified Code(s): E03.9 - Hypothyroidism, unspecified Is this a current diagnosis for this admission?: Yes Plan: Continue Synthroid (5) Ulcerative colitis Qualifiers: Ulcerative colitis location: ulcerative pancolitis Is this a current diagnosis for this admission?: Yes Plan: Diagnosed October 2017. She has a flare. Currently patient has been on Solu-Medrol. (6) History of melanoma Is this a current diagnosis for this admission?: Yes Plan: Follow-up with her primary oncologist (7) Chronic blood loss anemia Is this a current diagnosis for this admission?: Yes Plan: Patient has had intermittent bloody mucoid diarrhea due to her ulcerative colitis. We will supplement her with iron.
[2018-10-04] MEDS: FOLIC ACID/VITAMIN B COMP W-C CAPSULE PO SCH (16:37)
[2018-10-05] MEDS: HEPARIN SOD (PORCINE) 5,000 UNIT/ML 1 ML SYRINGE SUBCUT SCH (05:26)
[2018-10-05] MEDS: LEVOTHYROXINE SODIUM 0.025 MG TABLET PO SCH (06:01)
[2018-10-05] MEDS: ACETAMINOPHEN 325 MG TABLET PO PRN (06:03)
[2018-10-05] MEDS: INSULIN LISPRO 100 UNIT/ML 3 ML VIAL SUBCUT SCH ×2 (08:55→12:28)
[2018-10-05] MEDS: METOCLOPRAMIDE HCL INJ/PF 10 MG/2 ML SDV IV SCH ×2 (09:11→12:28)
[2018-10-05] MEDS ORDERED: PREDNISONE 20 MG TABLET PO SCH (10:00)
[2018-10-05] MEDS: CALCIUM CARBONATE 250 MG/VITAMIN D3 125 UNIT TABLET PO SCH (10:12)
[2018-10-05] MEDS: CYANOCOBALAMIN (VITAMIN B-12) INJ 1000 MCG/1 ML VIAL IM SCH (10:16)
--- NOTE | 2018-10-05 13:42 | PDOC DISCHARGE SUMMARY ---
General - Admit/Disc Date/PCP Admission Date/Primary Care Provider: 09/26/18 09:06 TIFF MCCULLOUGH MD Discharge Date: 10/05/18 - Discharge Diagnosis (1) Leukocytosis Is this a current diagnosis for this admission?: Yes (2) Hypokalemia Is this a current diagnosis for this admission?: Yes (3) Intractable nausea and vomiting Is this a current diagnosis for this admission?: Yes (4) Hypothyroidism Is this a current diagnosis for this admission?: Yes (5) Ulcerative colitis Is this a current diagnosis for this admission?: Yes (6) History of melanoma Is this a current diagnosis for this admission?: Yes (7) Chronic blood loss anemia Is this a current diagnosis for this admission?: Yes - Additional Information Resuscitation Status: Full Code Prescriptions: Metoclopramide HCl [Reglan 10 mg Tablet] 1 - 2 tab PO Q6 #25 tablet Prednisone [Deltasone 10 mg Tablet] 10 mg PO DAILY 5 Days #5 tablet Prednisone [Deltasone 20 mg Tablet] 40 mg PO DAILY 4 Days #8 tablet Prednisone [Deltasone 20 mg Tablet] 20 mg PO DAILY 5 Days #5 tablet Prednisone [Deltasone 5 mg Tablet] 5 mg PO BID #30 tablet Home Medications: Cholecalciferol (Vitamin D3) [Vitamin D3 5000 unit Capsule] 5,000 unit PO DAILY 09/25/18 Levothyroxine Sodium [Synthroid 0.05 mg Tablet] 50 mcg PO DAILY 09/25/18 Metoclopramide HCl [Reglan 10 mg Tablet] 1 - 2 tab PO Q6 #25 tablet 10/05/18 Prednisone [Deltasone 10 mg Tablet] 10 mg PO DAILY 5 Days #5 tablet 10/05/18 Prednisone [Deltasone 20 mg Tablet] 20 mg PO DAILY 5 Days #5 tablet 10/05/18 Prednisone [Deltasone 20 mg Tablet] 40 mg PO DAILY 4 Days #8 tablet 10/05/18 Prednisone [Deltasone 5 mg Tablet] 5 mg PO BID #30 tablet 10/05/18 History of Present Illness History of Present Illness: MELI MCQUEEN is a 58 year old female past medical history of Ulcerative colitis: Diagnosed October 2017, followed by heavy truck mechanic at [place] was placed on mesalamine patient noncompliant due to side effects and not being effective, supposed to be placed on room air but patient refused fearing side effects. Melanoma: [facility] patient she has had 2- PET scans by Dr. Duarte oncologist. As per Dr. Devine's note from 01/23/2018 patient declined chemoradiation, immunotherapy and she was not a candidate for chemotherapy due to underlying inflammatory bowel disease. Patient had preferred to travel to [place] to seek alternative treatments. Patient is presenting to ED complaining of chronic persistent nausea associated with nonbloody, bilious vomiting for the last several months, associated with nonbloody diarrhea with generalized abdominal pain. Resolved patient has lowered her p.o. intake fearing nausea vomiting and diarrhea. She is also complaining of also complaining of generalized weakness, lightheadedness, dyspnea on exertion and weight loss of 25 pounds in the last 4 weeks. Patient has been treating her nausea and vomiting with Zofran provided by PCP however lately they have not been very effective. Patient denies any fever, chills, headache, vision changes, heat or cold intolerance, constipation, hair or nail changes, any focal neurological weakness. ED she was found to have hypokalemia, mild lactic acidosis, hypo-albuminemia, prealbumin of 10.7. Hospital Course Hospital Course: This is a very pleasant 58 years old female patient with a diagnosis of ulcerative colitis, hypothyroidism, melanoma presented with chief complaint of intractable nausea and vomiting of bilious material. Patient has been managed with IV fluids, Protonix and antiemetics. Patient reported her nausea and vomiting is relatively improving. 09/29/2018: Patient seen and examined at bedside. She states that her stool is becoming formed but still she has occasional diarrhea. She complains of regu rgitating bile. I discussed the case with Dr. Duarte who recommended to keep her steroid for additional days. 09/30/2018: Patient reported that she is feeling better. Her diarrhea is subsiding. I switched her Solu-Medrol to p.o. prednisone 60 mg daily. She is potential discharge for tomorrow if she remains stable. 10/01/2018: Patient seen while she is resting in bed. She states she has dif ficulty to get out of bed. She states she cannot go home like this. insemination worker has been working on home health and answer durable equipment that patient needs. 10/02/2018: Patient seen sitting on recliner. Patient still complains of weakness in her lower leg. Vanessa urban planner states "patient is pending DME and HHC from the [place]" she is potential discharge for Thursday. 10/03/2018: Patient seen resting in bed comfortably. She is awake alert oriented. I tapered with her steroid from 60 mg p.o. daily to 40 mg p.o. daily. She is potential discharge for tomorrow. 10/04/2018: Patient participated with physical therapy today. Her leg weakness is relatively improving. Still waiting for response from [place]. No new complaint. 10/05/2018: Patient seen and examined at bedside. She is awake alert oriented she is not in pain or distress. Patient seen actively participating with ph ysical therapy walking on the hallway. Her vital signs and blood works are unremarkable patient is stable enough to go home today. Home health arranged and other complaints like rolling walker and ready to address will be delivered to the patient and her home. I will continue all her home medication and I will discharge her with a tapering dose of prednisone and Reglan for nausea. And follow-up with her heavy truck mechanic at [facility]. Physical Exam Vital Signs: Temp Pulse Resp BP Pulse Ox 98.3 F 70 16 134/88 H 97 10/04/18 23:40 10/04/18 23:40 10/04/18 23:40 10/04/18 23:40 10/04/18 23:40 Intake & Output 10/04/18 10/05/18 10/06/18 06:59 06:59 06:59 Intake Total 2950 1180 Balance 2950 1180 Weight 114.2 kg 117.2 kg General appearance: PRESENT: no acute distress Head exam: PRESENT: atraumatic Respiratory exam: PRESENT: clear to auscultation brisa. ABSENT: rales, rhonchi, wheezes Cardiovascular exam: PRESENT: RRR. ABSENT: diastolic murmur, rubs, systolic murmur Neurological exam: PRESENT: alert, awake, oriented to person, oriented to place, oriented to time, oriented to situation Results Laboratory Results: 10/01/18 05:29 10/01/18 05:29 09/25/18 09/25/18 08:05 08:05 Creatine Kinase 26 L Troponin I < 0.012 Qualifiers - * PATIENT BEING DISCHARGED WITH ANY OF THE FOLLOWING DIAGNOSIS: No Acute Heart Failure - Is this a Heart Failure Patient?: No LVEF < 40%?: No- if no continue to question #3 3. Anticoagulant therapy for permanect/persistent/paraoxysmal Afib or Aflutter: N/A
[2018-10-05 13:52] VITALS: BP 128/80
== END 2018-10-05 14:30 | disposition home or self-care (01) | DRG 387 ==
LOC: ER 07:35 → EH 12:30 → INTOOBSV 12:30 → 4N 13:53 → OBSVTOIN 09-26 09:06 → 4W 09-27 14:47 → 4S 09-29 12:37
PROVIDERS: ADMIT Internal Medicine; ATTEND Internal Medicine
DX: K51.818 Other ulcerative colitis with other complication (principal); E87.6 Hypokalemia; E03.9 Hypothyroidism, unspecified; D50.0 Iron deficiency anemia secondary to blood loss (chronic); E66.9 Obesity, unspecified; Z79.890 Hormone replacement therapy; Z85.820 Personal history of malignant melanoma of skin; Z79.899 Other long term (current) drug therapy; Z91.19 Patient's noncompliance with other medical treatment and regimen
CPT/HCPCS: 36415; 51701; 80048; 80053; 81001; 82550; 82607; 82728; 82746; 82962; 83540; 83550; 83605; 83690; 83735; 84100; 84134; 84439; 84443; 84481; 84484; 85025; 85027; 85045; 87045; 87205; 89055; 93005; 93010; 93306; 96361; 96374; 96376; 99285; A9270-GY; G0378; J1644; J1815; J1940; J2405; J2550; J2765; J2930; J3411; J3420; J3475; J3480; J3490; J7030; J7042; J7121; J7512; S0164

== ENCOUNTER 2018-10-08 19:17 | Inpatient (IN) | payer OTHER ==
--- NOTE | 2018-10-08 19:38 | ER Document Report ---
ED Medical Screen (RME) - General Chief Complaint: General Weakness Stated Complaint: WEAKNESS Time Seen by Provider: 10/08/18 19:34 Primary Care Provider: TIFF MCCULLOUGH MD [Primary Care Provider] - Follow up as needed Mode of Arrival: Wheelchair Information source: Patient Notes: 58-year-old female presented to ED as per instructions of her doctor. She states she was in here for a fall and was just discharged on Thursday. She states she had had nausea and vomiting came in for an ulcerative colitis flareup was started on steroids she has gained so much weight and so much fluid that she is not able to walk so her home health nurse called her doctor who was in touch with the discharge planning and they told her to return to the ED according to the patient. Patient is alert oriented respirations regular and unlabored speaking in full sentences. She does have gross pedal edema with weeping to both legs. She states there is so much swelling she is not able to pick her legs up to put them in the bed. TRAVEL OUTSIDE OF THE [place] IN LAST 30 DAYS: No - Related Data Allergies/Adverse Reactions: No Known Allergies Allergy (Verified 09/25/18 07:36) Past Medical History Endocrine Medical History: Reports: Hx Hypothyroidism Renal/ Medical History: Denies: Hx Peritoneal Dialysis GI Medical History: Reports: Hx Ulcerative Colitis Musculoskeltal Medical History: Reports Hx Arthritis Psychiatric Medical History: Denies: Hx Depression Past Surgical History: Reports: Hx Orthopedic Surgery Physical Exam - Vital signs Vitals: Temp Pulse Resp BP Pulse Ox 98.1 F 85 16 140/92 H 95 10/08/18 19:23 10/08/18 19:23 10/08/18 19:23 10/08/18 19:23 10/08/18 19:23 Course - Vital Signs Vital signs: Temp Pulse Resp BP Pulse Ox 98.1 F 85 16 140/92 H 95 10/08/18 19:23 10/08/18 19:23 10/08/18 19:23 10/08/18 19:23 10/08/18 19:23 Doctor's Discharge - Discharge Referrals: TIFF MCCULLOUGH MD [Primary Care Provider] - Follow up as needed
[2018-10-08 20:22] LABS: ABSOLUTE EOSINOPHILS # (AUTO) 0.1 10^3/uL (0.0-0.6); ABSOLUTE LYMPHOCYTES (AUTO) 1.1 10^3/uL (0.5-4.7); ABSOLUTE MONOCYTES (AUTO) 0.6 10^3/uL (0.1-1.4); ABSOLUTE NEUT (AUTO) 10.8 10^3/uL (1.7-8.2); BASOPHILS % (AUTO) 0.1 % (0-2); EOSINOPHILS % (AUTO) 0.4 % (0-6); HEMOGLOBIN 10.6 g/dL (12.0-15.5); LYMPHOCYTES % (AUTO) 8.9 % (13-45); MEAN CORPUSCULAR HEMOGLOBIN 30.6 pg (27.0-33.4); MEAN CORPUSCULAR HGB CONC 33.3 g/dL (32.0-36.0); MEAN CORPUSCULAR VOLUME 92 fl (80-97); MONOCYTES % (AUTO) 4.5 % (3-13); PLATELET COUNT 410 10^3/uL (150-450); RED BLOOD COUNT 3.47 10^6/uL (3.72-5.28); RED CELL DISTRIBUTION WIDTH 19.3 % (11.5-14.0); SEGMENTED NEUTROPHILS % (AUTO) 86.1 % (42-78); TOTAL CELLS COUNTED % (AUTO) 100 %; WHITE BLOOD COUNT 12.5 10^3/uL (4.0-10.5)
[2018-10-08 20:40] LABS: ALANINE AMINOTRANSFERASE 133 U/L (9-52); ALBUMIN 3.4 g/dL (3.5-5.0); ALKALINE PHOSPHATASE 252 U/L (38-126); ANION GAP 7 (5-19); ASPARTATE AMINO TRANSFERASE 58 U/L (14-36); BILIRUBIN,DIRECT 0.4 mg/dL (0.0-0.4); BILIRUBIN,TOTAL 0.6 mg/dL (0.2-1.3); BLOOD UREA NITROGEN 18 mg/dL (7-20); CALCIUM 9.1 mg/dL (8.4-10.2); CARBON DIOXIDE 28 mmol/L (22-30); CHLORIDE 104 mmol/L (98-107); GLUCOSE 127 mg/dL (75-110); POTASSIUM 3.9 mmol/L (3.6-5.0); SODIUM 139.3 mmol/L (137-145); TOTAL PROTEIN 6.1 g/dL (6.3-8.2)
--- NOTE | 2018-10-08 20:42 | RADIOLOGY REPORT (SQ) ---
EXAM DESCRIPTION: XR CHEST 2 VIEWS COMPLETED DATE/TME: 10/08/2018 19:34 CLINICAL HISTORY: 58 years Female Pedal edema increasing weight on steroids COMPARISON: None. FINDINGS: The cardiomediastinal silhouette appears unremarkable. No consolidating infiltrates or pleural effusions. No pneumothorax. Mild elevation of the right hemidiaphragm IMPRESSION: No acute abnormality is identified.
[2018-10-08 20:59] LABS: CREATINE KINASE MB 0.57 ng/mL (<4.55)
[2018-10-09] MEDS ORDERED: FUROSEMIDE INJ/PF 20 MG/2 ML SDV IV ONE (01:41)
--- NOTE | 2018-10-09 01:45 | ER Document Report ---
ED Dizziness/Weakness - General Chief Complaint: General Weakness Stated Complaint: WEAKNESS Time Seen by Provider: 10/08/18 19:34 Mode of Arrival: Wheelchair Notes: Patient is a 58-year-old female with past medical history of ulcerative colitis, melanoma, recently hospitalized for an ulcerative colitis flare who returns 2 days after being discharged due to increasing immobility, increasing bilateral lower extremity edema, and increasing pain to the bilateral extremities. Does note a dull, throbbing, aching, constant discomfort to the bilateral distal lower extremities below the level of the knees. The pain started gradually, has been worsening since onset. She states this feels like it is secondary to the edema in the extremities. She states that baseline she does not have edema in the extremities and that this started during her hospitalization. She denies any history of kidney failure or congestive heart failure. Denies shortness of breath orthopnea. Comes to the emergency department at the direction of her home health team who is concerned about her degree of immobility and that she likely needed long-term rehab deconditioning and inability to ambulate. TRAVEL OUTSIDE OF THE [place] IN LAST 30 DAYS: No - Related Data Allergies/Adverse Reactions: No Known Allergies Allergy (Verified 09/25/18 07:36) Past Medical History - General Information source: Patient - Social History Smoking Status: Never Smoker Chew tobacco use (# tins/day): No Frequency of alcohol use: None Drug Abuse: None Lives with: Alone Family History: Reviewed & Not Pertinent Patient has suicidal ideation: No Patient has homicidal ideation: No Endocrine Medical History: Reports: Hx Hypothyroidism Renal/ Medical History: Denies: Hx Peritoneal Dialysis GI Medical History: Reports: Hx Ulcerative Colitis Musculoskeletal Medical History: Reports Hx Arthritis Psychiatric Medical History: Denies: Hx Depression Past Surgical History: Reports: Hx Orthopedic Surgery Review of Systems - Review of Systems Notes: Constitutional: Negative for fever. Positive for immobility HENT: Negative for sore throat. Eyes: Negative for visual changes. Cardiovascular: Negative for chest pain. Respiratory: Negative for shortness of breath. Gastrointestinal: Negative for abdominal pain, vomiting or diarrhea. Genitourinary: Negative for dysuria. Musculoskeletal: Positive for bilateral lower extremity edema Skin: Negative for rash. Neurological: Negative for headaches, weakness or numbness. 10 point ROS negative except as marked above and in HPI. Physical Exam - Vital signs Vitals: Temp Pulse Resp BP Pulse Ox 98.1 F 85 16 140/92 H 95 10/08/18 19:23 10/08/18 19:23 10/08/18 19:23 10/08/18 19:23 10/08/18 19:23 Interpretation: Normal Notes: PHYSICAL EXAMINATION: GENERAL: Appears somewhat unwell but in no acute distress HEAD: Atraumatic, normocephalic. EYES: Pupils equal round and reactive to light, extraocular movements intact, sclera anicteric, conjunctiva are normal. ENT: nares patent, oropharynx clear without exudates. Moist mucous membranes. NECK: Normal range of motion, supple without lymphadenopathy LUNGS: Breath sounds clear to auscultation bilaterally and equal. No wheezes rales or rhonchi. HEART: Regular rate and rhythm without murmurs ABDOMEN: Soft, nontender, normoactive bowel sounds. No guarding, no rebound. No masses appreciated. EXTREMITIES: 4+ pitting edema in the bilateral lower extremities is equal and symmetric. Edema goes to the level of just above the knee bilaterally. NEUROLOGICAL: No focal neurological deficits. Moves all extremities spontaneously and on command. PSYCH: Normal mood, normal affect. SKIN: Warm, Dry, normal turgor, no rashes or lesions noted. Course - Re-evaluation Re-evalutation: 10/09/18 02:40 Patient presents with impressive bilateral lower extremity edema 4+ extending above the level of the knees bilaterally. Patient is effectively unable to ambulate at this point secondary to the degree of edema. Per her report she was this edematous and immobile at the time of previous discharge. Patient is not safe to be at home with such immobility and edema. She has been started on IV diuresis with furosemide, Ferguson catheter placed. This is placed for monitoring of I's and O's. Labs otherwise unremarkable. I discussed with hospitalist Dr. Piña who has accepted the patient for admission. - Vital Signs Vital signs: Temp Pulse Resp BP Pulse Ox 98.1 F 85 16 140/92 H 95 10/08/18 19:23 10/08/18 19:23 10/08/18 19:23 10/08/18 19:23 10/08/18 19:23 - Laboratory Result Diagrams: 10/08/18 19:54 10/08/18 19:54 Laboratory results interpreted by me: 10/08/18 10/08/18 10/09/18 19:54 19:54 01:14 WBC 12.5 H RBC 3.47 L Hgb 10.6 L Hct 32.0 L RDW 19.3 H Seg Neutrophils % 86.1 H Lymphocytes % 8.9 L Absolute Neutrophils 10.8 H Glucose 127 H AST 58 H ALT 133 H Alkaline Phosphatase 252 H Total Protein 6.1 L Albumin 3.4 L Urine Blood SMALL H Ur Leukocyte Esterase SMALL H Discharge - Discharge Clinical Impression: Bilateral lower extremity edema, Decreased mobility Lower extremity weakness Qualifiers: Laterality: bilateral Qualified Code(s): R29.898 - Other symptoms and signs involving the musculoskeletal system Condition: Fair Disposition: ADMITTED INPATIENT Admitting Provider: Ayana (Hospitalist) Unit Admitted: [facility]
[2018-10-09 01:59] LABS: APPEARANCE,URINE SLIGHTLY-CLOUDY; BILIRUBIN,URINE NEGATIVE (NEGATIVE); COLOR,URINE YELLOW; GLUCOSE, URINE NEGATIVE (NEGATIVE); KETONES,URINE NEGATIVE (NEGATIVE); LEUKOCYTE ESTERASE,URINE SMALL (NEGATIVE); NITRITE,URINE NEGATIVE (NEGATIVE); PROTEIN,URINE NEGATIVE (NEGATIVE); URINE SPECIFIC GRAVITY 1.019; UROBILINOGEN,URINE NEGATIVE mg/dL (<2.0)
[2018-10-09] MEDS ORDERED: ONDANSETRON HCL INJ/PF 4 MG/2 ML SDV IV PRN (03:19)
[2018-10-09] MEDS ORDERED: MAGNESIUM HYDROXIDE SUSP 30 ML UDCUP PO PRN (03:19)
[2018-10-09] MEDS ORDERED: ZOLPIDEM TARTRATE 5 MG TABLET PO PRN (03:19)
[2018-10-09] MEDS ORDERED: MAG HYDROX/AL HYDROX/SIMETH SUSP 30 ML UDCUP PO PRN (03:19)
[2018-10-09] MEDS ORDERED: ACETAMINOPHEN 325 MG TABLET PO PRN (03:24)
[2018-10-09] MEDS ORDERED: MORPHINE SULFATE 10 MG/ML INJ IV PRN ×4 (03:24→03:30)
--- NOTE | 2018-10-09 04:21 | PDOC H&P ---
History of Present Illness Admission Date/PCP: 10/09/18 02:05 Patient complains of: Peripheral edema History of Present Illness: MELI MCQUEEN is a 58 year old female who presented to the emergency room upon the recommendation of her home health nurse and the home health physician landscape supervisor due to edema present since her recent hospital discharge. She admits severe swelling of her feet and lower legs at the time she was discharged from the hospital, on 10/05/2018, such that she was unable to lift her legs to get into bed and had a great deal of difficulty trying ambulate or even transfer to a chair. Her symptoms have gradually worsened since being discharged to home and her home health nurse upon evaluating her recommended that she return to the hospital for further treatment due to her severe fluid overload, since this condition did not precede her recent hospitalization. Patient acknowledges that the swelling has been accompanied by a constant moderate dull ache without radiation and also by superficial bullae formation on her lower extremities with weeping. She denies prior similar episodes and has not identified any additional aggravating or ameliorating factors for her severe bilateral lower leg edema. In the emergency room the patient was found to have 4+ pitting edema from the knees to the toes bilaterally with weeping bullae present on both lower extremities. Patient was unable to lift her legs to get into bed and was unable to move her legs well enough to assist with transfers. Patient was subsequently admitted to the hospital for further evaluation and treatment. Past Medical History Cardiac Medical History: Denies: Atrial Fibrillation, Congestive Heart Failure, Coronary Artery Disease, Myocardial Infarction, Hyperlipidema, Hypertension Pulmonary Medical History: Denies: Asthma, Chronic Obstructive Pulmonary Disease (COPD), Respiratory Failure EENT Medical History: Denies: Cataracts, Ears - Hearing aids Neurological Medical History: Denies: Hemorrhagic CVA, Ischemic CVA, Multiple Sclerosis, Seizures Endocrine Medical History: Reports: Hypothyroidism Denies: Diabetes Mellitus Type 1, Diabetes Mellitus Type 2, Hyperthyroidism Renal/ Medical History: Denies: Chronic Kidney Disease, Nephrolithiasis Malignancy Medical History: Reports: Skin Cancer - Malignant melanoma GI Medical History: Reports: Ulcerative Colitis Denies: Cirrhosis, Crohn's Disease, Hepatitis Musculoskeltal Medical History: Reports: Arthritis Denies: Fibromyalgia, Gout Skin Medical History: Reports: Other - Malignant melanoma Denies: Eczema, Psoriasis Psychiatric Medical History: Denies: Alcohol Dependency, Substance Abuse, Tobacco Dependency Traumatic Medical History: Reports: None Hematology: Denies: Anemia, Bleeding Tendencies Infectious Medical History: Reports: None Past Surgical History Past Surgical History: Reports: Orthopedic Surgery, Other - Excision of malignant melanoma Social History Information Source: Patient Lives with: Alone Smoking Status: Never Smoker Frequency of Alcohol Use: None Hx Recreational Drug Use: No Drugs: None Hx Prescription Drug Abuse: No - Advance Directive Resuscitation Status: Full Code Surrogate healthcare decision maker:: Leonor Hackett Family History Family History: None - Adopted, not familiar with biologic family Parental Family History Reviewed: Yes Children Family History Reviewed: No Sibling(s) Family History Reviewed.: Yes Medication/Allergy Home Medications: Cholecalciferol (Vitamin D3) [Vitamin D3 5000 unit Capsule] 5,000 unit PO DAILY 09/25/18 Levothyroxine Sodium [Synthroid 0.05 mg Tablet] 50 mcg PO DAILY 09/25/18 Metoclopramide HCl [Reglan 10 mg Tablet] 1 - 2 tab PO Q6 #25 tablet 10/05/18 Prednisone [Deltasone 10 mg Tablet] 10 mg PO DAILY 5 Days #5 tablet 10/05/18 Prednisone [Deltasone 20 mg Tablet] 20 mg PO DAILY 5 Days #5 tablet 10/05/18 Prednisone [Deltasone 20 mg Tablet] 40 mg PO DAILY 4 Days #8 tablet 10/05/18 Prednisone [Deltasone 5 mg Tablet] 5 mg PO BID #30 tablet 10/05/18 Allergies/Adverse Reactions: No Known Allergies Allergy (Verified 09/25/18 07:36) Review of Systems Constitutional: ABSENT: chills, fever(s) Eyes: ABSENT: visual disturbances, other - Ocular pain Ears: ABSENT: hearing changes, other - Ear pain Nose, Mouth, and Throat: ABSENT: mouth pain, sore throat Cardiovascular: PRESENT: as per HPI, edema. ABSENT: chest pain, dyspnea on exertion, orthropnea, palpitations Respiratory: ABSENT: cough, dyspnea Gastrointestinal: ABSENT: abdominal pain, constipation, diarrhea, nausea, vomiting Genitourinary: ABSENT: dysuria, hematuria Musculoskeletal: ABSENT: back pain, joint swelling, muscle weakness Integumentary: ABSENT: pruritus, rash Neurological: ABSENT: confusion, convulsions, focal weakness, memory loss, syncope Psychiatric: ABSENT: anxiety, depression Endocrine: ABSENT: cold intolerance, heat intolerance Hematologic/Lymphatic: ABSENT: easy bleeding, easy bruising Physical Exam Vital Signs: Temp Pulse Resp BP Pulse Ox 98.1 F 85 16 140/92 H 95 10/08/18 19:23 10/08/18 19:23 10/08/18 19:23 10/08/18 19:23 10/08/18 19:23 Intake & Output 10/07/18 10/08/18 10/09/18 23:59 23:59 23:59 Weight 105.7 kg General appearance: PRESENT: no acute distress, cooperative, obese Head exam: PRESENT: atraumatic, normocephalic Eye exam: ABSENT: conjunctival injection, scleral icterus Ear exam: PRESENT: normal external ear exam. ABSENT: bleeding, drainage Mouth exam: PRESENT: dry mucosa, neck supple Neck exam: ABSENT: JVD, thyromegaly, tracheal deviation Respiratory exam: PRESENT: clear to auscultation brisa, symmetrical, unlabored Cardiovascular exam: PRESENT: RRR. ABSENT: clicks, gallop, rubs Pulses: PRESENT: normal radial pulses. ABSENT: normal dorsalis pedis pul - Bilateral dorsalis pedis pulses are obscured due to severe 4+ edema of the bilateral lower extremities Vascular exam: PRESENT: normal capillary refill. ABSENT: pallor GI/Abdominal exam: PRESENT: normal bowel sounds, soft Rectal exam: PRESENT: deferred Extremities exam: PRESENT: pedal edema - 4+, tenderness - Swollen lower extremities are minimally tender to palpation, other - 4+ pitting edema from the knees to the toes bilaterally Musculoskeletal exam: ABSENT: deformity, dislocation Neurological exam: PRESENT: alert, oriented to person, oriented to place, oriented to time, oriented to situation, CN II-XII grossly intact. ABSENT: m otor sensory deficit Psychiatric exam: PRESENT: appropriate affect, normal mood Skin exam: PRESENT: dry, warm, other - Superficial bullae formation noted on bilateral lower extremities with weeping. ABSENT: jaundice, rash, urticaria Results Laboratory Results: 10/08/18 19:54 10/08/18 19:54 10/08/18 10/08/18 10/09/18 19:54 19:54 01:14 WBC 12.5 H RBC 3.47 L Hgb 10.6 L Hct 32.0 L MCV 92 MCH 30.6 MCHC 33.3 RDW 19.3 H Plt Count 410 Seg Neutrophils % 86.1 H Lymphocytes % 8.9 L Monocytes % 4.5 Eosinophils % 0.4 Basophils % 0.1 Absolute Neutrophils 10.8 H Absolute Lymphocytes 1.1 Absolute Monocytes 0.6 Absolute Eosinophils 0.1 Absolute Basophils 0.0 Sodium 139.3 Potassium 3.9 Chloride 104 Carbon Dioxide 28 Anion Gap 7 BUN 18 Creatinine 0.52 Est GFR ( Amer) > 60 Est GFR (Non-Af Amer) > 60 Glucose 127 H Calcium 9.1 Total Bilirubin 0.6 AST 58 H ALT 133 H Alkaline Phosphatase 252 H Total Protein 6.1 L Albumin 3.4 L Urine Color YELLOW Urine Appearance SLIGHTLY-CLOUDY Urine pH 5.0 Ur Specific Cord 1.019 Urine Protein NEGATIVE Urine Glucose (UA) NEGATIVE Urine Ketones NEGATIVE Urine Blood SMALL H Urine Nitrite NEGATIVE Ur Leukocyte Esterase SMALL H Urine WBC (Auto) 62 Urine RBC (Auto) 12 10/08/18 19:54 CK-MB (CK-2) 0.57 NT-Pro-B Natriuret Pep 683 Impressions: Chest X-Ray 10/08/18 19:34 IMPRESSION: No acute abnormality is identified. Assessment and Plan - Diagnosis (1) Bilateral lower extremity edema Is this a current diagnosis for this admission?: Yes Plan: Patient's bilateral lower extremity edema will be treated with intravenous diuretics and bedrest to promote effective diuresis. Ferguson catheter will be placed to monitor fluid output. Morphine sulfate 2 to 4 mg IV every 2 hours as needed for pain on a sliding scale basis will be used to control any pain associated with her edema. Daily CBCs, metabolic profiles and magnesium levels will be followed as part of the management of this problem. (2) Decreased mobility Is this a current diagnosis for this admission?: Yes Plan: A physical therapy consultation will be obtained to assist the patient and increasing her level of activity as her edema resolves. Additionally the patient may require some reconditioning and may also benefit from edema wraps if PT provides that service. (3) Ulcerative colitis Qualifiers: Ulcerative colitis location: ulcerative pancolitis Digestive disease complication type: unspecified complication Qualified Code(s): K51.019 - Ulcerative (chronic) pancolitis with unspecified complications Is this a current diagnosis for this admission?: Yes Plan: Patient's ulcerative colitis is currently in remission since her recent hospitalization. Patient will be continued on her current prednisone taper throughout her hospital course and into her post discharge course. (4) Hypothyroid Qualifiers: Hypothyroidism type: unspecified Qualified Code(s): E03.9 - Hypothyroidism, unspecified Is this a current diagnosis for this admission?: Yes Plan: Patient be continued on her current thyroid replacement hormone therapy. A thyroid profile will be checked if there is no recent similar evaluation available. - Time Time Spent with patient: 25-34 minutes Medications reviewed and adjusted accordingly: Yes Anticipated discharge: Home - Inpatient Certification Based on my medical assessment, after consideration of the patient's comorbidities, presenting symptoms, or acuity I expect that the services needed warrant INPATIENT care.: Yes I certify that my determination is in accordance with my understanding of Medicare's requirements for reasonable and necessary INPATIENT services [42 CFR 412.3e].: Yes Medical Necessity: Failure to Improve With Outpatient Therapy, Need Close Monitoring Due to Risk of Patient Decompensation, Need For Continuous Telemetry Monitoring, Need for Pain Control, Risk of Complication if Not Cared For in Hospital, Risk of Diagnosis Which Will Require Inpatient Eval/Care/Monitoring
--- NOTE | 2018-10-09 04:21 | ADVANCED CARE ---
- Diagnosis (1) Bilateral lower extremity edema Diagnosis Current: Yes (2) Decreased mobility Diagnosis Current: Yes (3) Hypothyroid Diagnosis Current: Yes (4) Ulcerative colitis Diagnosis Current: Yes Attendance: Patient and myself Resuscitation Status: Full Code Discussion: After discussion the patient has determined that she wishes to be full code resuscitation status for any cardiac or respiratory arrest that may occur during this hospitalization. Additionally she has named Leonor Hackett as her designated surrogate medical decision maker. Care Planning Goals: 1. The patient will remain full CODE STATUS for this hospitalization. 2. Leonor Hackett is the patient's designated surrogate medical decision-maker. Document(s) Completed: The following information will be entered into the patient's permanent medical record and the current medical orders for this visit via EMR entry: 1. The patient will remain full CODE STATUS for this hospitalization. 2. Leonor Hackett is the patient's designated surrogate medical decision-maker. Time Spent: 10 minutes
[2018-10-09] MEDS: HEPARIN SOD (PORCINE) 5,000 UNIT/ML 1 ML SYRINGE SUBCUT SCH ×3 (06:41→21:43)
[2018-10-09] MEDS: LEVOTHYROXINE SODIUM 0.05 MG TABLET PO SCH (06:41)
[2018-10-09] MEDS: BUMETANIDE INJ/PF 1 MG/4 ML SDV IV SCH ×3 (06:41→17:34)
--- NOTE | 2018-10-09 08:24 | Progress Note ---
Provider Note Provider Note: 10/09/[id number]-old female admitted with more than 40 pounds weight gain came in with more than 4+ pedal edema she is receiving Bumex 1 mg IV every 6 hours and prednisone 20 mg p.o. daily for ulcerative colitis urinary output is 2.3 L. Patient is complaining of lower leg pains no other complaints she is on morphine sliding scale at this point. Blood pressure today is 146/84 temperature is 97.6 heart rate is 80. On examination chest bilateral entry was good no wheezing no crepitations. CVS S1-S2 heard. Abdomen soft bowel sounds are present. Extremities 4+ pedal edema present. I am going to check for bilateral venous Doppler to rule out any DVTs. Continue to give her diuretic therapy. Physical therapy consult is going to be requested patient is requesting rehab placement. At this point she said she is unable to walk.
[2018-10-09 08:59] LABS: ALANINE AMINOTRANSFERASE 120 U/L (9-52); ALBUMIN 3.3 g/dL (3.5-5.0); ALKALINE PHOSPHATASE 199 U/L (38-126); ANION GAP 7 (5-19); ASPARTATE AMINO TRANSFERASE 54 U/L (14-36); BILIRUBIN,DIRECT 0.4 mg/dL (0.0-0.4); BILIRUBIN,TOTAL 0.8 mg/dL (0.2-1.3); BLOOD UREA NITROGEN 15 mg/dL (7-20); CALCIUM 8.4 mg/dL (8.4-10.2); CARBON DIOXIDE 30 mmol/L (22-30); CHLORIDE 103 mmol/L (98-107); GLUCOSE 80 mg/dL (75-110); SODIUM 139.7 mmol/L (137-145); TOTAL PROTEIN 6.1 g/dL (6.3-8.2)
[2018-10-09 09:03] LABS: ABSOLUTE EOSINOPHILS # (AUTO) 0.1 10^3/uL (0.0-0.6); ABSOLUTE LYMPHOCYTES (AUTO) 3.8 10^3/uL (0.5-4.7); ABSOLUTE MONOCYTES (AUTO) 0.8 10^3/uL (0.1-1.4); ABSOLUTE NEUT (AUTO) 7.3 10^3/uL (1.7-8.2); BASOPHILS % (AUTO) 0.3 % (0-2); EOSINOPHILS % (AUTO) 1.1 % (0-6); HEMATOCRIT 32.7 % (36.0-47.0); LYMPHOCYTES % (AUTO) 31.8 % (13-45); MEAN CORPUSCULAR HEMOGLOBIN 30.7 pg (27.0-33.4); MEAN CORPUSCULAR HGB CONC 33.6 g/dL (32.0-36.0); MEAN CORPUSCULAR VOLUME 92 fl (80-97); MONOCYTES % (AUTO) 6.3 % (3-13); PLATELET COUNT 378 10^3/uL (150-450); RED BLOOD COUNT 3.58 10^6/uL (3.72-5.28); RED CELL DISTRIBUTION WIDTH 19.5 % (11.5-14.0); SEGMENTED NEUTROPHILS % (AUTO) 60.5 % (42-78); TOTAL CELLS COUNTED % (AUTO) 100 %
[2018-10-09] MEDS ORDERED: POTASSIUM CHLORIDE 10 MEQ CAPSULE.ER PO SCH (10:00)
[2018-10-09] MEDS: METOCLOPRAMIDE HCL 10 MG TABLET PO SCH ×4 (10:44→21:43)
[2018-10-09] MEDS: PREDNISONE 20 MG TABLET PO SCH (10:46)
[2018-10-09] MEDS: DOCUSATE SODIUM 100 MG CAPSULE PO SCH ×2 (10:46→17:34)
[2018-10-09] MEDS: FAMOTIDINE 20 MG TABLET PO SCH ×2 (10:46→21:43)
[2018-10-09] MEDS ORDERED: POTASSIUM CHLORIDE 20 MEQ PACKET PO SCH (12:00)
[2018-10-10] MEDS ORDERED: POTASSIUM CHLORIDE 20 MEQ PACKET PO ONE (00:45)
[2018-10-10] MEDS: BUMETANIDE INJ/PF 1 MG/4 ML SDV IV SCH ×4 (00:50→18:25)
[2018-10-10 03:53] LABS: ABSOLUTE BASOPHILS # (AUTO) 0.1 10^3/uL (0.0-0.2); ABSOLUTE EOSINOPHILS # (AUTO) 0.1 10^3/uL (0.0-0.6); ABSOLUTE LYMPHOCYTES (AUTO) 2.2 10^3/uL (0.5-4.7); ABSOLUTE MONOCYTES (AUTO) 0.5 10^3/uL (0.1-1.4); ABSOLUTE NEUT (AUTO) 6.2 10^3/uL (1.7-8.2); BASOPHILS % (AUTO) 1.1 % (0-2); EOSINOPHILS % (AUTO) 0.6 % (0-6); HEMATOCRIT 27.3 % (36.0-47.0); HEMOGLOBIN 9.3 g/dL (12.0-15.5); LYMPHOCYTES % (AUTO) 24.5 % (13-45); MEAN CORPUSCULAR VOLUME 91 fl (80-97); PLATELET COUNT 329 10^3/uL (150-450); RED BLOOD COUNT 2.99 10^6/uL (3.72-5.28); RED CELL DISTRIBUTION WIDTH 19.1 % (11.5-14.0); SEGMENTED NEUTROPHILS % (AUTO) 67.8 % (42-78); TOTAL CELLS COUNTED % (AUTO) 100 %; WHITE BLOOD COUNT 9.1 10^3/uL (4.0-10.5)
[2018-10-10 04:16] LABS: ALANINE AMINOTRANSFERASE 87 U/L (9-52); ALBUMIN 2.6 g/dL (3.5-5.0); ALKALINE PHOSPHATASE 178 U/L (38-126); ANION GAP 6 (5-19); ASPARTATE AMINO TRANSFERASE 37 U/L (14-36); BILIRUBIN,DIRECT 0.3 mg/dL (0.0-0.4); BILIRUBIN,TOTAL 0.6 mg/dL (0.2-1.3); BLOOD UREA NITROGEN 16 mg/dL (7-20); CALCIUM 8.1 mg/dL (8.4-10.2); CARBON DIOXIDE 29 mmol/L (22-30); CHLORIDE 102 mmol/L (98-107); GLUCOSE 89 mg/dL (75-110); POTASSIUM 3.8 mmol/L (3.6-5.0); SODIUM 136.7 mmol/L (137-145)
[2018-10-10] MEDS ORDERED: BUMETANIDE INJ/PF 1 MG/4 ML SDV ONE (06:06)
[2018-10-10] MEDS: HEPARIN SOD (PORCINE) 5,000 UNIT/ML 1 ML SYRINGE SUBCUT SCH ×3 (06:23→21:23)
[2018-10-10] MEDS: LEVOTHYROXINE SODIUM 0.05 MG TABLET PO SCH (06:24)
[2018-10-10] MEDS: METOCLOPRAMIDE HCL 10 MG TABLET PO SCH ×4 (08:32→21:21)
[2018-10-10] MEDS: ALBUMIN HUMAN 12.5 GM/50 ML RTUINJ IV SCH ×3 (08:32→11:21)
[2018-10-10] MEDS: POTASSIUM CHLORIDE 20 MEQ PACKET PO SCH ×3 (08:32→18:25)
--- NOTE | 2018-10-10 08:52 | PDOC PROGRESS REPORT ---
Subjective Progress Note for:: 10/10/18 Subjective:: 58 year old female who presented to the emergency room upon the recommendation of her home health nurse and the home health physician supervisor alteration workroom due to edema present since her recent hospital discharge. She admits severe swelling of her feet and lower legs at the time she was discharged from the hospital, on 10/05/2018, such that she was unable to lift her legs to get into bed and had a great deal of difficulty trying ambulate or even transfer to a chair. Her sy mptoms have gradually worsened since being discharged to home and her home health nurse upon evaluating her recommended that she return to the hospital for further treatment due to her severe fluid overload, since this condition did not precede her recent hospitalization. Patient acknowledges that the swelling has been accompanied by a constant moderate dull ache without radiation and also by superficial bullae formation on her lower extremities with weeping. She denies prior similar episodes and has not identified any additional aggravating or ameliorating factors for her severe bilateral lower leg edema. In the emergency room the patient was found to have 4+ pitting edema from the knees to the toes bilaterally with weeping bullae present on both lower extremities. Patient was unable to lift her legs to get into bed and was unable to move her legs well enough to assist with transfers. Patient was subsequently admitted to the hospital for further evaluation and treatment. 10/[id number]-old female came to the emergency room with complaints of bilateral lower leg swelling according to her she gained more than 40 pounds. No complications during the hospital stay. She is receiving Bumex 1 mg IV every 6 hours and her creatinine is stable. Patient is putting out large amount of urine negative balance of 3.7 L in the last 24 hours. Reason For Visit: PERIPHERAL EDEMA SECONDARY TO FLUID OVERLOAD Physical Exam Vital Signs: Temp Pulse Resp BP Pulse Ox 97.9 F 75 20 111/70 94 10/10/18 03:50 10/10/18 07:00 10/10/18 03:50 10/10/18 03:50 10/10/18 03:50 Intake & Output 10/09/18 10/10/18 10/11/18 06:59 06:59 06:59 Intake Total 832 Output Total 2300 4600 Balance -2300 -3768 Weight 105.5 kg 105.7 kg General appearance: PRESENT: no acute distress, obese Head exam: PRESENT: atraumatic Eye exam: PRESENT: PERRLA Mouth exam: PRESENT: moist, tongue midline Teeth exam: PRESENT: poor dentation Neck exam: ABSENT: carotid bruit, JVD, lymphadenopathy, thyromegaly Respiratory exam: PRESENT: decreased breath sounds Cardiovascular exam: PRESENT: RRR. ABSENT: diastolic murmur, rubs, systolic murmur GI/Abdominal exam: PRESENT: normal bowel sounds, soft. ABSENT: distended, guarding, mass, organolmegaly, rebound, tenderness Rectal exam: PRESENT: deferred Gentrourinary exam: PRESENT: indwelling catheter Extremities exam: PRESENT: +2 edema Neurological exam: PRESENT: alert, awake, oriented to person, oriented to place, oriented to time, oriented to situation, CN II-XII grossly intact. ABSENT: motor sensory deficit Psychiatric exam: PRESENT: appropriate affect, normal mood. ABSENT: homicidal ideation, suicidal ideation Results Laboratory Results: 10/10/18 03:44 10/10/18 03:44 10/09/18 10/09/18 10/10/18 08:25 08:25 03:44 WBC 12.0 H 9.1 RBC 3.58 L 2.99 L Hgb 11.0 L 9.3 L Hct 32.7 L 27.3 L MCV 92 91 MCH 30.7 31.0 MCHC 33.6 34.0 RDW 19.5 H 19.1 H Plt Count 378 329 Seg Neutrophils % 60.5 67.8 Lymphocytes % 31.8 24.5 Monocytes % 6.3 6.0 Eosinophils % 1.1 0.6 Basophils % 0.3 1.1 Absolute Neutrophils 7.3 6.2 Absolute Lymphocytes 3.8 2.2 Absolute Monocytes 0.8 0.5 Absolute Eosinophils 0.1 0.1 Absolute Basophils 0.0 0.1 Sodium 139.7 Potassium 3.0 L* Chloride 103 Carbon Dioxide 30 Anion Gap 7 BUN 15 Creatinine 0.51 L Est GFR ( Amer) > 60 Est GFR (Non-Af Amer) > 60 Glucose 80 Calcium 8.4 Magnesium 2.1 Total Bilirubin 0.8 AST 54 H ALT 120 H Alkaline Phosphatase 199 H Total Protein 6.1 L Albumin 3.3 L 10/10/18 03:44 WBC RBC Hgb Hct MCV MCH MCHC RDW Plt Count Seg Neutrophils % Lymphocytes % Monocytes % Eosinophils % Basophils % Absolute Neutrophils Absolute Lymphocytes Absolute Monocytes Absolute Eosinophils Absolute Basophils Sodium 136.7 L Potassium 3.8 Chloride 102 Carbon Dioxide 29 Anion Gap 6 BUN 16 Creatinine 0.63 Est GFR ( Amer) > 60 Est GFR (Non-Af Amer) > 60 Glucose 89 Calcium 8.1 L Magnesium 1.9 Total Bilirubin 0.6 AST 37 H ALT 87 H Alkaline Phosphatase 178 H Total Protein 5.0 L Albumin 2.6 L 10/08/18 10/10/18 19:54 03:44 CK-MB (CK-2) 0.57 NT-Pro-B Natriuret Pep 683 389 Impressions: Chest X-Ray 10/08/18 19:34 IMPRESSION: No acute abnormality is identified. Assessment and Plan - Diagnosis (1) Bilateral lower extremity edema Is this a current diagnosis for this admission?: Yes Plan: Patient's bilateral lower extremity edema will be treated with intravenous diuretics and bedrest to promote effective diuresis. Ferguson catheter will be placed to monitor fluid output. Morphine sulfate 2 to 4 mg IV every 2 hours as needed for pain on a sliding scale basis will be used to control any pain associated with her edema. Daily CBCs, metabolic profiles and magnesium levels will be followed as part of the management of this problem. 10/10/2018-patient admitted with bilateral lower extremity edema BNP came down to 389 today. Ferguson's catheter in place. Fluid balance is -3.7 L in the last 24 hours. We are doing the daily labs and the creatinine was stable so far. Albumin is 2.6 which is going to be supplemented. No complaints from the patient today. (2) Decreased mobility Is this a current diagnosis for this admission?: Yes Plan: A physical therapy consultation will be obtained to assist the patient and increasing her level of activity as her edema resolves. Additionally the patient may require some reconditioning and may also benefit from edema wraps if PT provides that service. 10/10/2018-decreased mobility secondary to massive lower extremity edema. Physical therapy consult was requested. (3) Ulcerative colitis Qualifiers: Ulcerative colitis location: other ulcerative colitis Digestive disease complication type: other complication Qualified Code(s): K51.818 - Other ulcerative colitis with other complication Is this a current diagnosis for this admission?: No Plan: valery's ulcerative colitis is currently in remission since her recent hospitalization. Patient will be continued on her current prednisone taper throughout her hospital course and into her post discharge course. 10/10/2018--patient has history of ulcerative colitis currently in remission. Plan is to continue the tapering dose of prednisone during this hospital stay. (4) Obesity (BMI 30.0-34.9) Is this a current diagnosis for this admission?: No Plan: Patient's BMI is more than 35 diet exercise weight loss lifestyle modifications are discussed with the patient. Dietary consult is going to be requested. - Time Time Spent with patient: 15-24 minutes Anticipated discharge: Home
[2018-10-10] MEDS: DOCUSATE SODIUM 100 MG CAPSULE PO SCH ×2 (09:50→18:25)
[2018-10-10] MEDS: PREDNISONE 20 MG TABLET PO SCH (09:50)
[2018-10-10] MEDS: FAMOTIDINE 20 MG TABLET PO SCH ×2 (09:50→21:21)
[2018-10-10] MEDS: CHOLECALCIFEROL (D3) 1,000 UNIT (25 MCG) TABLET PO SCH (09:50)
[2018-10-11] MEDS: BUMETANIDE INJ/PF 1 MG/4 ML SDV IV SCH ×4 (00:32→21:30)
[2018-10-11 05:27] LABS: HEMATOCRIT 27.8 % (36.0-47.0); HEMOGLOBIN 9.6 g/dL (12.0-15.5); MEAN CORPUSCULAR HEMOGLOBIN 31.4 pg (27.0-33.4); MEAN CORPUSCULAR HGB CONC 34.5 g/dL (32.0-36.0); MEAN CORPUSCULAR VOLUME 91 fl (80-97); PLATELET COUNT 367 10^3/uL (150-450); RED BLOOD COUNT 3.06 10^6/uL (3.72-5.28); RED CELL DISTRIBUTION WIDTH 18.1 % (11.5-14.0); WHITE BLOOD COUNT 7.6 10^3/uL (4.0-10.5)
[2018-10-11] MEDS ORDERED: BUMETANIDE INJ/PF 1 MG/4 ML SDV ONE (05:35)
[2018-10-11 05:54] LABS: ANION GAP 6 (5-19); BLOOD UREA NITROGEN 14 mg/dL (7-20); CALCIUM 8.6 mg/dL (8.4-10.2); CARBON DIOXIDE 31 mmol/L (22-30); CHLORIDE 100 mmol/L (98-107); GLUCOSE 89 mg/dL (75-110); POTASSIUM 3.7 mmol/L (3.6-5.0); SODIUM 136.7 mmol/L (137-145)
[2018-10-11] MEDS: HEPARIN SOD (PORCINE) 5,000 UNIT/ML 1 ML SYRINGE SUBCUT SCH ×3 (06:17→21:30)
[2018-10-11] MEDS: LEVOTHYROXINE SODIUM 0.05 MG TABLET PO SCH (06:17)
[2018-10-11] MEDS: POTASSIUM CHLORIDE 20 MEQ PACKET PO SCH ×3 (07:57→17:11)
[2018-10-11] MEDS: METOCLOPRAMIDE HCL 10 MG TABLET PO SCH ×4 (07:57→21:30)
--- NOTE | 2018-10-11 08:27 | PDOC PROGRESS REPORT ---
Subjective Progress Note for:: 10/11/18 Subjective:: 58 year old female who presented to the emergency room upon the recommendation of her home health nurse and the home health physician supervisor weaving due to edema present since her recent hospital discharge. She admits severe swelling of her feet and lower legs at the time she was discharged from the hospital, on 10/05/2018, such that she was unable to lift her legs to get into bed and had a great deal of difficulty trying ambulate or even transfer to a chair. Her sy mptoms have gradually worsened since being discharged to home and her home health nurse upon evaluating her recommended that she return to the hospital for further treatment due to her severe fluid overload, since this condition did not precede her recent hospitalization. Patient acknowledges that the swelling has been accompanied by a constant moderate dull ache without radiation and also by superficial bullae formation on her lower extremities with weeping. She denies prior similar episodes and has not identified any additional aggravating or ameliorating factors for her severe bilateral lower leg edema. In the emergency room the patient was found to have 4+ pitting edema from the knees to the toes bilaterally with weeping bullae present on both lower extremities. Patient was unable to lift her legs to get into bed and was unable to move her legs well enough to assist with transfers. Patient was subsequently admitted to the hospital for further evaluation and treatment. 10/10/[id number]-earq-old female came to the emergency room with complaints of bilateral lower leg swelling according to her she gained more than 40 pounds. No complications during the hospital stay. She is receiving Bumex 1 mg IV every 6 hours and her creatinine is stable. Patient is putting out large amount of urine negative balance of 3.7 L in the last 24 hours. 10/11/[id number]-rdpy-old female came to the emergency room with massive bilateral lower leg swelling she is on Bumex 1 mg IV every 6 hours negative fluid balance of 3.5 L yesterday. Patient comfortable in the bed the edema is almost resolved. No acute events in the last 24 hours. Afebrile. Patient is expressing desire to go to assisted living. Reason For Visit: PERIPHERAL EDEMA SECONDARY TO FLUID OVERLOAD Physical Exam Vital Signs: Temp Pulse Resp BP Pulse Ox 97.9 F 71 18 130/82 H 95 10/11/18 03:58 10/11/18 03:58 10/11/18 03:58 10/11/18 03:58 10/11/18 03:58 Intake & Output 10/10/18 10/11/18 10/12/18 06:59 06:59 06:59 Intake Total 832 1668 Output Total 4608 4447 Balance -2541 -1092 Weight 105.7 kg 102.1 kg General appearance: PRESENT: no acute distress, obese Head exam: PRESENT: atraumatic Eye exam: PRESENT: PERRLA Mouth exam: PRESENT: moist, tongue midline Teeth exam: PRESENT: poor dentation Neck exam: ABSENT: carotid bruit, JVD, lymphadenopathy, thyromegaly Respiratory exam: PRESENT: clear to auscultation brisa. ABSENT: rales, rhonchi, wheezes Cardiovascular exam: PRESENT: RRR. ABSENT: diastolic murmur, rubs, systolic murmur GI/Abdominal exam: PRESENT: normal bowel sounds, soft. ABSENT: distended, guarding, mass, organolmegaly, rebound, tenderness Rectal exam: PRESENT: deferred Extremities exam: PRESENT: full ROM. ABSENT: calf tenderness, clubbing, pedal edema Neurological exam: PRESENT: alert, awake, oriented to person, oriented to place, oriented to time, oriented to situation, CN II-XII grossly intact. ABSENT: motor sensory deficit Psychiatric exam: PRESENT: appropriate affect, normal mood. ABSENT: homicidal ideation, suicidal ideation Results Laboratory Results: 10/11/18 04:35 10/11/18 04:35 10/11/18 10/11/18 04:35 04:35 WBC 7.6 RBC 3.06 L Hgb 9.6 L Hct 27.8 L MCV 91 MCH 31.4 MCHC 34.5 RDW 18.1 H Plt Count 367 Sodium 136.7 L Potassium 3.7 Chloride 100 Carbon Dioxide 31 H Anion Gap 6 BUN 14 Creatinine 0.59 Est GFR ( Amer) > 60 Est GFR (Non-Af Amer) > 60 Glucose 89 Calcium 8.6 Magnesium 2.1 10/08/18 10/10/18 19:54 03:44 CK-MB (CK-2) 0.57 NT-Pro-B Natriuret Pep 683 389 Impressions: Chest X-Ray 10/08/18 19:34 IMPRESSION: No acute abnormality is identified. Assessment and Plan - Diagnosis (1) Bilateral lower extremity edema Is this a current diagnosis for this admission?: Yes Plan: Patient's bilateral lower extremity edema will be treated with intravenous diuretics and bedrest to promote effective diuresis. Ferguson catheter will be placed to monitor fluid output. Morphine sulfate 2 to 4 mg IV every 2 hours as needed for pain on a sliding scale basis will be used to control any pain associated with her edema. Daily CBCs, metabolic profiles and magnesium levels will be followed as part of the management of this problem. 10/10/2018-patient admitted with bilateral lower extremity edema BNP came down to 389 today. Ferguson's catheter in place. Fluid balance is -3.7 L in the last 24 hours. We are doing the daily labs and the creatinine was stable so far. Albumin is 2.6 which is going to be supplemented. No complaints from the patient today. 10/11/2018-patient admitted with bilateral lower extremity leg extremity with elevated BNP. Negative fluid balance of 3.5 L in the last 24 hours. Creatinine stable. She received albumin supplementation yesterday. Patient is expressing desire to go to assisted living. (2) Decreased mobility Is this a current diagnosis for this admission?: Yes Plan: A physical therapy consultation will be obtained to assist the patient and increasing her level of activity as her edema resolves. Additionally the patient may require some reconditioning and may also benefit from edema wraps if PT provides that service. 10/10/2018-decreased mobility secondary to massive lower extremity edema. Physical therapy consult was requested. 10/11/2018-patient has decreased mobility secondary to massive lower extremity edema physical therapy is working with the patient patient is expressing desire to go to assisted living. (3) Ulcerative colitis Qualifiers: Ulcerative colitis location: other ulcerative colitis Digestive disease complication type: other complication Qualified Code(s): K51.818 - Other ulcerative colitis with other complication Is this a current diagnosis for this admission?: No Plan: atmike's ulcerative colitis is currently in remission since her recent hospitalization. Patient will be continued on her current prednisone taper throughout her hospital course and into her post discharge course. 10/10/2018--patient has history of ulcerative colitis currently in remission. Plan is to continue the tapering dose of prednisone during this hospital stay. 10/11/2018-patient has history of ulcerative colitis on tapering dose of prednisone. (4) Obesity (BMI 30.0-34.9) Is this a current diagnosis for this admission?: No - Time Time Spent with patient: 25-34 minutes Medications reviewed and adjusted accordingly: Yes Anticipated discharge: SNF
[2018-10-11] MEDS: PREDNISONE 20 MG TABLET PO SCH (09:33)
[2018-10-11] MEDS: FAMOTIDINE 20 MG TABLET PO SCH ×2 (09:33→21:30)
[2018-10-11] MEDS: DOCUSATE SODIUM 100 MG CAPSULE PO SCH ×2 (09:33→17:10)
[2018-10-11] MEDS: CHOLECALCIFEROL (D3) 1,000 UNIT (25 MCG) TABLET PO SCH (09:34)
[2018-10-12] MEDS: HEPARIN SOD (PORCINE) 5,000 UNIT/ML 1 ML SYRINGE SUBCUT SCH ×3 (05:20→21:38)
[2018-10-12] MEDS: LEVOTHYROXINE SODIUM 0.05 MG TABLET PO SCH (05:20)
[2018-10-12 05:36] LABS: HEMATOCRIT 31.6 % (36.0-47.0); HEMOGLOBIN 10.7 g/dL (12.0-15.5); MEAN CORPUSCULAR HEMOGLOBIN 30.9 pg (27.0-33.4); MEAN CORPUSCULAR HGB CONC 33.9 g/dL (32.0-36.0); MEAN CORPUSCULAR VOLUME 91 fl (80-97); PLATELET COUNT 399 10^3/uL (150-450); RED BLOOD COUNT 3.47 10^6/uL (3.72-5.28); RED CELL DISTRIBUTION WIDTH 17.8 % (11.5-14.0); WHITE BLOOD COUNT 11.5 10^3/uL (4.0-10.5)
[2018-10-12 05:54] LABS: ANION GAP 10 (5-19); BLOOD UREA NITROGEN 24 mg/dL (7-20); CALCIUM 8.8 mg/dL (8.4-10.2); CARBON DIOXIDE 28 mmol/L (22-30); CHLORIDE 98 mmol/L (98-107); GLUCOSE 89 mg/dL (75-110); POTASSIUM 3.7 mmol/L (3.6-5.0); SODIUM 135.8 mmol/L (137-145)
[2018-10-12] MEDS: PREDNISONE 20 MG TABLET PO SCH (09:29)
[2018-10-12] MEDS: FAMOTIDINE 20 MG TABLET PO SCH ×2 (09:29→21:38)
[2018-10-12] MEDS: METOCLOPRAMIDE HCL 10 MG TABLET PO SCH ×4 (09:29→21:38)
[2018-10-12] MEDS: CHOLECALCIFEROL (D3) 1,000 UNIT (25 MCG) TABLET PO SCH (09:30)
[2018-10-12] MEDS: DOCUSATE SODIUM 100 MG CAPSULE PO SCH ×2 (09:31→17:17)
[2018-10-12] MEDS: POTASSIUM CHLORIDE 20 MEQ PACKET PO SCH ×3 (09:31→17:17)
[2018-10-12] MEDS: BUMETANIDE INJ/PF 1 MG/4 ML SDV IV SCH ×2 (09:31→21:38)
--- NOTE | 2018-10-12 09:32 | XCELERA REPORT ---
[address] [facility] [address] Lower Extremity Venous Evaluation Procedure: Color flow and duplex imaging bilaterally of the veins of the lower extremities as well as the Common Femoral veins. Right Sided Venous Evaluation Normal vessel filling wall to wall, compression and augmentation as well as Colour flow down to the infrageniculate veins. Left Sided Venous Evaluation Normal vessel filling wall to wall, compression and augmentation as well as Colour flow down to the infrageniculate veins. Interpretation Summary No duplex evidence of DVT or obstruction in the bilateral lower extremities. Name: MELI MCQUEEN Age: 58 yrs Gender: Female : 1960 Patient Status: Inpatient Patient Location: [address] [place] [address] Study Date: 10/11/2018 02:34 PM Reason For Study: dvt Ordering Physician: BECCA WYNN Performed By: Katiuska Harper : BECCA WYNN > Andriy Doyle
--- NOTE | 2018-10-12 13:43 | PDOC PROGRESS REPORT ---
Subjective Progress Note for:: 10/12/18 Subjective:: 10/12: Assumed care today. Chart and course reviewed. This 58-year-old female with history of ulcerative colitis who was admitted for increasing bipedal edema. She was admitted for possible fluid overload. She was started on IV diuretics. Upon encounter today, patient says that she continues to improve and feel better. Her bilateral leg swelling has also continued to significantly improved. Patient relays that her pedal edema and weight gain all started 3 day s after she was placed on steroids for her ulcerative colitis. She does not have a prior history of CHF or renal problems. Her pedal edema and weight gain are likely from fluid overload secondary to steroid-induced water retention. Reason For Visit: PERIPHERAL EDEMA SECONDARY TO FLUID OVERLOAD Physical Exam Vital Signs: Temp Pulse Resp BP Pulse Ox 97.5 F 80 16 97/60 L 95 10/12/18 11:43 10/12/18 11:43 10/12/18 11:43 10/12/18 11:43 10/12/18 11:43 Intake & Output 10/11/18 10/12/18 10/13/18 06:59 06:59 06:59 Intake Total 1668 1620 Output Total 5200 2725 Balance -3532 -1105 Weight 225 lb 1.471 oz 219 lb 12.814 oz General appearance: PRESENT: no acute distress, well-developed, well-nourished Head exam: PRESENT: atraumatic, normocephalic Eye exam: PRESENT: conjunctiva pink, EOMI, PERRLA. ABSENT: scleral icterus Ear exam: PRESENT: normal external ear exam Mouth exam: PRESENT: moist, tongue midline Neck exam: ABSENT: carotid bruit, JVD, lymphadenopathy, thyromegaly Respiratory exam: PRESENT: clear to auscultation brisa. ABSENT: rales, rhonchi, wheezes Cardiovascular exam: PRESENT: RRR. ABSENT: diastolic murmur, rubs, systolic murmur Pulses: PRESENT: normal dorsalis pedis pul GI/Abdominal exam: PRESENT: normal bowel sounds, soft. ABSENT: distended, guarding, mass, organolmegaly, rebound, tenderness Rectal exam: PRESENT: deferred Extremities exam: PRESENT: +2 edema Neurological exam: PRESENT: alert, awake, oriented to person, oriented to place, oriented to time, oriented to situation, CN II-XII grossly intact. ABSENT: motor sensory deficit Results Laboratory Results: 10/12/18 04:31 10/12/18 04:31 10/12/18 10/12/18 04:31 04:31 WBC 11.5 H RBC 3.47 L Hgb 10.7 L Hct 31.6 L MCV 91 MCH 30.9 MCHC 33.9 RDW 17.8 H Plt Count 399 Sodium 135.8 L Potassium 3.7 Chloride 98 Carbon Dioxide 28 Anion Gap 10 BUN 24 H Creatinine 0.66 Est GFR ( Amer) > 60 Est GFR (Non-Af Amer) > 60 Glucose 89 Calcium 8.8 Magnesium 2.1 10/08/18 10/10/18 19:54 03:44 CK-MB (CK-2) 0.57 NT-Pro-B Natriuret Pep 683 389 Impressions: Chest X-Ray 10/08/18 19:34 IMPRESSION: No acute abnormality is identified. Assessment and Plan - Diagnosis (1) Volume overload Is this a current diagnosis for this admission?: Yes Plan: Improving. Patient relays that her pedal edema and weight gain all started 3 days after she was placed on steroids for her ulcerative colitis. She does not have a prior history of CHF or renal problems. Her pedal edema and weight gain are likely from fluid overload secondary to steroid-induced water retention. She has chronic pedal edema and she does have hypoalbuminemia which also possibly contributes to her third spacing. Echo shows normal EF and normal diastolic function. We will continue IV Bumex for another day. Plan to discontinue Bumex tomorrow and switch to p.o. if there is still significant signs of water retention. (2) Hypothyroidism Qualifiers: Hypothyroidism type: acquired Qualified Code(s): E03.9 - Hypothyroidism, unspecified Is this a current diagnosis for this admission?: Yes Plan: Stable. Her recent TSH was normal. Continue Synthroid. (3) Ulcerative colitis Qualifiers: Ulcerative colitis location: other ulcerative colitis Digestive disease complication type: other complication Qualified Code(s): K51.818 - Other ulcerative colitis with other complication Is this a current diagnosis for this admission?: Yes Plan: Patient says that her doctor has considered possibly starting her on Humira in the next few months for her UC. - Time Time Spent with patient: 25-34 minutes
[2018-10-13] MEDS: LEVOTHYROXINE SODIUM 0.05 MG TABLET PO SCH (05:23)
[2018-10-13] MEDS: HEPARIN SOD (PORCINE) 5,000 UNIT/ML 1 ML SYRINGE SUBCUT SCH (05:24)
[2018-10-13] MEDS: POTASSIUM CHLORIDE 20 MEQ PACKET PO SCH (08:21)
[2018-10-13] MEDS: METOCLOPRAMIDE HCL 10 MG TABLET PO SCH (08:21)
[2018-10-13 09:35] LABS: POTASSIUM 3.6 mmol/L (3.6-5.0)
[2018-10-13] MEDS: BUMETANIDE INJ/PF 1 MG/4 ML SDV IV SCH (10:00)
[2018-10-13] MEDS: PREDNISONE 20 MG TABLET PO SCH (10:01)
[2018-10-13] MEDS: CHOLECALCIFEROL (D3) 1,000 UNIT (25 MCG) TABLET PO SCH (10:01)
[2018-10-13] MEDS: DOCUSATE SODIUM 100 MG CAPSULE PO SCH (10:02)
[2018-10-13] MEDS: FAMOTIDINE 20 MG TABLET PO SCH (10:02)
[2018-10-13 10:21] VITALS: BP 122/66
--- NOTE | 2018-10-13 16:37 | PDOC DISCHARGE SUMMARY ---
General - Admit/Disc Date/PCP Admission Date/Primary Care Provider: 10/09/18 02:05 Discharge Date: 10/13/18 - Discharge Diagnosis (1) Volume overload Is this a current diagnosis for this admission?: Yes (2) Hypothyroidism Is this a current diagnosis for this admission?: Yes (3) Ulcerative colitis Is this a current diagnosis for this admission?: Yes - Additional Information Resuscitation Status: Full Code Discharge Diet: As Tolerated Discharge Activity: Activity As Tolerated, Balance Activity w/Rest, Energy Conservation, Keep Legs Elevated, No Lifting Over 10 Pounds, No Lifting/Push/Pulling, Weigh Daily Prescriptions: Furosemide [Lasix 20 mg Tablet] 20 mg PO QAM 5 Days #5 tablet Potassium Chloride 10 meq PO DAILY #5 capsule.er Home Medications: Cholecalciferol (Vitamin D3) [Vitamin D3 5000 unit Capsule] 5,000 unit PO DAILY 10/09/18 Levothyroxine Sodium [Synthroid 0.05 mg Tablet] 50 mcg PO Q6AM 10/09/18 Furosemide [Lasix 20 mg Tablet] 20 mg PO QAM 5 Days #5 tablet 10/13/18 Potassium Chloride 10 meq PO DAILY #5 capsule.er 10/13/18 History of Present Illness History of Present Illness: Admitting hospitalist's H&P: MELIKody MCQUEEN is a 58 year old female who presented to the emergency room upon the recommendation of her home health nurse and the home health physician yard supervisor due to edema present since her recent hospital discharge. She admits severe swelling of her feet and lower legs at the time she was discharged from the hospital, on 10/05/2018, such that she was unable to lift her legs to get into bed and had a great deal of difficulty trying ambulate or even transfer to a chair. Her symptoms have gradually worsened since being discharged to home and her home health nurse upon evaluating her recommended that she return to the hospital for further treatment due to her severe fluid overload, since this condition did not precede her recent hospitalization. Patient acknowledges that the swelling has been accompanied by a constant moderate dull ache without radiation and also by superficial bullae formation on her lower extremities with weeping. She denies prior similar episodes and has not identified any additional aggravating or ameliorating factors for her severe bilateral lower leg edema. In the emergency room the patient was found to have 4+ pitting edema from the knees to the toes bilaterally with weeping bullae present on both lower extremities. Patient was unable to lift her legs to get into bed and was unable to move her legs well enough to assist with transfers. Patient was subsequently admitted to the hospital for further evaluation and treatment. Hospital Course Hospital Course: This 58-year-old female with history of ulcerative colitis who was admitted for increasing bipedal edema. She was admitted for possible fluid overload. She was started on IV bumex. She did improve with diuretics. Echocardiogram was normal. Her bilateral leg swelling has also continued to significantly improved. Patient relays that her pedal edema and weight gain all started 3 days after she was placed on steroids for her ulcerative colitis. She does not have a prior history of CHF or renal problems. Her pedal edema and weight gain are likely from fluid overload secondary to steroid-induced water retention. She will be discharged on a short course of Lasix with low-dose potassium replacement. She will finish her tapered steroid regimen for her ulcerative colitis. She does have an upcoming follow-up with her GI at the [facility] to possibly be started on Humira for her UC. Physical Exam Vital Signs: Temp Pulse Resp BP Pulse Ox 97.8 F 69 16 122/66 98 10/13/18 10:19 10/13/18 10:19 10/13/18 10:19 10/13/18 10:19 10/13/18 10:19 Intake & Output 10/12/18 10/13/18 10/14/18 06:59 06:59 06:59 Intake Total 1620 1092 Output Total 2725 575 Balance -1105 517 Weight 219 lb 12.814 oz 219 lb 2.232 oz General appearance: PRESENT: no acute distress, well-developed, well-nourished Head exam: PRESENT: atraumatic, normocephalic Eye exam: PRESENT: conjunctiva pink, EOMI, PERRLA. ABSENT: scleral icterus Ear exam: PRESENT: normal external ear exam Mouth exam: PRESENT: moist, tongue midline Neck exam: ABSENT: carotid bruit, JVD, lymphadenopathy, thyromegaly Respiratory exam: PRESENT: clear to auscultation brisa. ABSENT: rales, rhonchi, wheezes Cardiovascular exam: PRESENT: RRR. ABSENT: diastolic murmur, rubs, systolic murmur Pulses: PRESENT: normal dorsalis pedis pul GI/Abdominal exam: PRESENT: normal bowel sounds, soft. ABSENT: distended, guarding, mass, organolmegaly, rebound, tenderness Rectal exam: PRESENT: deferred Extremities exam: PRESENT: +1 edema Neurological exam: PRESENT: alert, awake, oriented to person, oriented to place, oriented to time, oriented to situation, CN II-XII grossly intact. ABSENT: motor sensory deficit Results Laboratory Results: 10/12/18 04:31 10/13/18 08:55 10/13/18 08:55 Potassium 3.6 Magnesium 1.9 10/08/18 10/10/18 19:54 03:44 CK-MB (CK-2) 0.57 NT-Pro-B Natriuret Pep 683 389 Impressions: Chest X-Ray 10/08/18 19:34 IMPRESSION: No acute abnormality is identified. Qualifiers - * PATIENT BEING DISCHARGED WITH ANY OF THE FOLLOWING DIAGNOSIS: No Acute Heart Failure - Is this a Heart Failure Patient?: No LVEF < 40%?: No- if no continue to question #3 3. Anticoagulant therapy for permanect/persistent/paraoxysmal Afib or Aflutter: N/A
== END 2018-10-13 10:58 | disposition home or self-care (01) | DRG 948 ==
LOC: ER 19:17 → EH 10-09 02:05 → 3W 10-09 03:38
PROVIDERS: ADMIT Emergency Medicine; ATTEND Emergency Medicine
DX: R60.9 Edema, unspecified (principal); K51.80 Other ulcerative colitis without complications; T38.0X5A Adverse effect of glucocorticoids and synthetic analogues, initial encounter; R26.2 Difficulty in walking, not elsewhere classified; E03.9 Hypothyroidism, unspecified; E66.9 Obesity, unspecified; Z68.35 Body mass index [BMI] 35.0-35.9, adult; M19.90 Unspecified osteoarthritis, unspecified site; Z85.820 Personal history of malignant melanoma of skin; R63.5 Abnormal weight gain; Z79.890 Hormone replacement therapy
CPT/HCPCS: 36415; 51701; 71046; 80048; 80053; 81001; 82553; 83735; 83880; 84132; 85025; 85027; 85730; 93970; 99284; J1644; J1940; J3490; J7512; P9047

== ENCOUNTER 2018-12-06 08:28 | Day surgery (SDC) | payer OTHER ==
[~2018-12-06 08:28] MED LIST: PROPOFOL INJ 200 MG/20 ML VIAL IV ONE
[2018-12-06 10:53] VITALS: BP 146/97
--- NOTE | 2018-12-06 13:05 | Operative Report ---
Operative Report DATE OF SURGERY: 12/06/18 Operative Report: The risks, benefits and alternatives of the procedure including the risk of bleeding, perforation requiring surgery have been explained to the patient in detail and informed consent has been obtained. Patient is taken back to the endoscopy suite and placed in the left, lateral decubital position. Timeout was called. Propofol medication is administered. Rectal examination is done which did not reveal any masses, tears or fissures. An Olympus videoscope was introduced into the patient's rectum. The scope was then carefully advanced all the way to the cecum. The cecum was identified by the usual anatomical landmarks and hitting the ileocecal valve as well as the appendiceal office. Photodocumentation is obtained. The scope was then sequentially pulled back via the various segments of the colon including the ascending colon, hepatic flexure, transverse colon, splenic flexure, descending colon and finally into the rectosigmoid portions of the colon. Retroflexion maneuvers performed. The risks benefits and alternatives of the procedure explained to the patient in detail and informed consent is obtained.A GIF Olympus video scope was inserted into the patient's mouth and hypopharynx ,the esophagus is identified intubated and insufflated, the scope was then advanced through the esophagus stomach and duodenum ,retroflexion maneuver is done, the esophagus stomach and first and second portions of the duodenum examined. PREOPERATIVE DIAGNOSIS: History of inflammatory bowel disease. Nausea abdominal bloating POSTOPERATIVE DIAGNOSIS: There appears to be ulcerated mucosa starting in the rectum suggestive of ulcerative colitis from 0 to 30 cm. Internal hemorrhoids. Diverticulosis without any evidence of diverticulitis. There is right colon polyp that was removed via biopsy forceps. Not able to intubate the terminal ileum. Gastritis status post biopsy rule out Helicobacter pylori OPERATION: Colonoscopy with biopsy. EGD with biopsy SURGEON: SIERRA GRIDER ANESTHESIA: LMAC TISSUE REMOVED OR ALTERED: As noted above. COMPLICATIONS: None. ESTIMATED BLOOD LOSS: None. INTRAOPERATIVE FINDINGS: As noted above. PROCEDURE: Patient tolerated the procedure well. No immediate postprocedure complications are noted. Patient is discharged in good condition. Discharge date 12/06/2018. Discharge diet: Regular. Discharge activity: Regular. 2 to 3-week follow-up to discuss findings. Patient is instructed to call the office or proceed to the emergency room should there be any further problems or questions. Wait on the pathology to determine if this is Crohn's disease versus ulcerative colitis.
== END 2018-12-06 10:50 | disposition home or self-care (01) ==
LOC: END 08:28
PROVIDERS: ATTEND Internal Medicine Gastroenterology
DX: K52.9 Noninfective gastroenteritis and colitis, unspecified (principal); K64.8 Other hemorrhoids; K57.30 Diverticulosis of large intestine without perforation or abscess without bleeding; K29.50 Unspecified chronic gastritis without bleeding; D12.6 Benign neoplasm of colon, unspecified; E03.9 Hypothyroidism, unspecified; Z85.820 Personal history of malignant melanoma of skin; Z79.899 Other long term (current) drug therapy
CPT/HCPCS: 88342 ×2; 88305 ×2; J2704

== ENCOUNTER → 2018-12-23 | Outpatient (CLI) | payer OTHER ==
--- NOTE | 2018-12-23 14:32 | RADIOLOGY REPORT (SQ) ---
EXAM DESCRIPTION: SMALL BOWEL SERIES COMPLETED DATE/TIME: 12/23/2018 12:26 pm REASON FOR STUDY: K51.80 OTHER ULCERATIVE COLITIS WITHOUT COMPLICATIONS K51.80 OTHER ULCERATIVE COL ITIS WITHOUT COMPLICATIONS COMPARISON: CT abdomen pelvis 07/26/2018 PET-CT 06/27/2018 CT abdomen pelvis 06/12/2018 FLUOROSCOPY TIME: 1.2 minutes 3 fluoroscopic images saved to PACS. LIMITATIONS: None. PROCEDURE: Initial organic extractions technician image of abdomen acquired, followed by administration of oral contrast. Se rial radiographic images acquired. Fluoroscopic images recorded of the terminal ileum and other brittany cated areas. All images stored on PACS. FINDINGS: ELECTRICIAN LOCOMOTIVE KUB: Non-obstructive bowel pattern. No abnormal calcifications. Soft tissue planes normal. STOMACH: No significant reflux. Normal distention without abnormality. DUODENUM: Normal mucosal pattern with adequate distention. No displacement or obstruction. JEJUNUM: Normal mucosal pattern. No dilatation, segmentation, strictures or masses. Multiple small diverticuli are present less than 1 cm. ILEUM: Normal mucosal pattern. No dilatation, segmentation, strictures or masses. TERMINAL ILEUM AND ILEO-CECAL VALVE: Normal mucosal pattern without "cobble-stoning" or stricture. N ormal compression. PROXIMAL COLON: Incompletely imaged. No abnormality. OTHER: No other significant finding. IMPRESSION: ESSENTIALLY NORMAL SMALL BOWEL EXAM. COMMENT: Quality ID [id number]: Final reports for procedures using fluoroscopy that document radiation exp osure indices, or exposure time and number of fluorographic images (if radiation exposure indices are not available) TECHNICAL DOCUMENTATION: JOB ID: [id number] [employer]- All Rights Reserved Reading location - IP/workstation name: [email or web address]
== END ==
LOC: RAD 09:49
PROVIDERS: ATTEND Internal Medicine Gastroenterology
DX: K51.80 Other ulcerative colitis without complications (principal)
CPT/HCPCS: 74250

== ENCOUNTER 2019-01-05 19:11 | Emergency (ER) | payer OTHER ==
[2019-01-05] MEDS ORDERED: RINGERS SOLUTION,LACTATED 1,000 ML IV ONE (19:33)
--- NOTE | 2019-01-05 19:49 | ER Document Report ---
ED General - General Chief Complaint: Altered Mental Status Stated Complaint: ALTERED MENTAL STATUS Time Seen by Provider: 01/05/19 19:23 TRAVEL OUTSIDE OF THE [place] IN LAST 30 DAYS: No - HPI Notes: Note history is limited, patient is altered. Patient brought by EMS. Apparently found in her house by her neighbors, not acting appropriate. No history of trauma. It is unknown when she was last known well, she lives alone. Patient herself is severely altered does not provide any meaningful information. When asked questions she will answer her name and a halting voice but really cannot answer any other questions. - Related Data Allergies/Adverse Reactions: No Known Allergies Allergy (Verified 12/06/18 08:33) Past Medical History - Social History Smoking Status: Never Smoker Chew tobacco use (# tins/day): No Frequency of alcohol use: None Drug Abuse: None Family History: None - Adopted, not familiar with biologic family Patient has suicidal ideation: No Patient has homicidal ideation: No - Medical History Notes: History reviewed in the records, history of ulcerative colitis. - Past Medical History Cardiac Medical History: Denies: Hx Atrial Fibrillation, Hx Congestive Heart Failure, Hx Coronary Artery Disease, Hx Heart Attack, Hx Hypercholesterolemia, Hx Hypertension Pulmonary Medical History: Denies: Hx Asthma, Hx Bronchitis, Hx COPD, Hx Pneumonia, Hx Respiratory Failure Neurological Medical History: Denies: Hx Cerebrovascular Accident, Hx Seizures Endocrine Medical History: Reports: Hx Hypothyroidism. Denies: Hx Diabetes Mellitus Type 1, Hx Diabetes Mellitus Type 2, Hx Hyperthyroidism Renal/ Medical History: Denies: Hx Peritoneal Dialysis Malignancy Medical History: Reports: Hx Skin Cancer - Malignant melanoma GI Medical History: Reports: Hx Ulcerative Colitis. Denies: Hx Cirrhosis, Hx Crohn's Disease, Hx Hepatitis Musculoskeletal Medical History: Reports Hx Arthritis, Denies Hx Fibromyalgia, Denies Hx Gout Skin Medical History: Denies Hx Eczema, Denies Hx Psoriasis Psychiatric Medical History: Denies: Hx Depression Infectious Medical History: Denies: Hx Hepatitis Past Surgical History: Reports: Hx Orthopedic Surgery, Other - Excision of m alignant melanoma - Immunizations Hx Diphtheria, Pertussis, Tetanus Vaccination: No Review of Systems - Review of Systems Notes: Review of systems as in history of present illness otherwise severely limited by clinical condition Physical Exam - Vital signs Vitals: Temp Pulse Resp BP Pulse Ox 97.7 F 92 13 131/95 H 96 01/05/19 19:15 01/05/19 19:15 01/05/19 19:15 01/05/19 19:15 01/05/19 19:15 - Notes Notes: General: Well developed . HEENT: Normocephalic, atraumatic. Pupils equal round reactive to light. No JVD. Dry mucosa Chest: No trauma. Respiratory: Good air exchange, normal excursion. Cardiac: Regular rhythm. No murmurs or gallops. Abdomen: Soft, benign. Nondistended. Nontender. Back: No asymmetry or gross abnormality. Motor: Decreased tone and power but symmetric Neurologic: Eyes open, awake, appears confused. Slow to respond verbally but no roya dysarthria. Is able to answer her name and halting voice, however, cannot answer any orientation questions. Does not know who the president is. Cannot relate any story of how she arrived here. She does not cooperate with cerebellar testing. Has no visible facial asymmetry, but does not cooperate with formal cranial nerve testing. Sensation is intact x4 and she withdraws to pain. She has no unilateral neglect. She does appear to have some element of expressive aphasia, she is unable to name my watch or pen. Vascular: Well perfused. Normal peripheral pulses. Skin: No petechiae or purpura. Course - Re-evaluation Re-evalutation: 01/05/19 19:48 This is a 58-year-old female presents with confusion and altered mental status. She is disheveled, malodorous, appears to have feces on her leg and under her fingernails. Of note, there is no frame of reference to determine time of onset. She does not present with an overt stroke syndrome, however, she would not qualify in any way for lytics or interventional therapy based on a complete lack of time of onset. Broad differential diagnosis is entertained including structural, metabolic, endocrine or infectious etiologies. Plan proceed with conference of labs, CT imaging, reevaluate. 01/05/19 22:29 Labs reviewed, CBC shows minimally elevated white count otherwise unremarkable. Chemistries unremarkable. UDS pending. Urine unremarkable. Chest x-ray unremarkable. CT imaging the brain shows a large poorly defined left frontal lobe mass with substantial surrounding vasogenic edema, sulcal effacement and substantial shift to the right. No evidence of acute hemorrhage. Patient is remained static with no change in her underlying neurologic status. She is maintaining her airway, remains substantially confused does not answer questions with any significant meaningful answers. I spoken with the neurosurgical ICU at [facility], they have agreed to accept the patient in transfer where she will undergo neurosurgical evaluation as well. Ultimately is able to go to the patient's past medical history and what is available in her EMR. She has a history of melanoma, this is certainly concerning given what may be metastases to the brain. It is unclear whether she is being treated or has been treated recently. She is loaded with IV Decadron and Keppra 01/05/19 22:31 - Vital Signs Vital signs: Temp Pulse Resp BP Pulse Ox 97.7 F 92 15 131/95 H 96 01/05/19 19:15 01/05/19 19:15 01/05/19 20:00 01/05/19 19:15 01/05/19 20:00 - Laboratory Result Diagrams: 01/05/19 20:19 01/05/19 20:19 Laboratory results interpreted by me: 01/05/19 01/05/19 01/05/19 20:19 20:19 21:17 WBC 13.0 H RBC 5.98 H Hgb 16.5 H Hct 48.4 H RDW 14.5 H Plt Count 507 H Lymph % (Auto) 11.8 L Absolute Neuts (auto) 10.6 H Seg Neutrophils % 81.2 H Chloride 92 L Carbon Dioxide 31 H Est GFR (MDRD) Non-Af 58 L Glucose 159 H Calcium 10.3 H Urine Ketones TRACE H - EKG Interpretation by Me EKG shows normal: Sinus rhythm, [place], Intervals, QRS Complexes Additional EKG results interpreted by me: 01/05/19 20:[address] segment abnormalities that appear old when compared with a September 2018 ECG Critical Care Note - Critical Care Note Total time excluding time spent on procedures (mins): 35 Comments: This includes evaluation and management of cranial tumor with substantial edema, altered mental status, serial examination, arranging transfer and speak with consultants. Is not inclined does not include time spent perform procedures Discharge - Discharge Clinical Impression: Brain mass Condition: Critical Disposition: [facility]
[2019-01-05 20:29] LABS: ABSOLUTE BASOPHILS # (AUTO) 0.1 10^3/uL (0.0-0.2); ABSOLUTE EOSINOPHILS # (AUTO) 0.1 10^3/uL (0.0-0.6); ABSOLUTE LYMPHOCYTES (AUTO) 1.5 10^3/uL (0.5-4.7); ABSOLUTE MONOCYTES (AUTO) 0.8 10^3/uL (0.1-1.4); ABSOLUTE NEUT (AUTO) 10.6 10^3/uL (1.7-8.2); BASOPHILS % (AUTO) 0.6 % (0-2); EOSINOPHILS % (AUTO) 0.5 % (0-6); HEMATOCRIT 48.4 % (36.0-47.0); HEMOGLOBIN 16.5 g/dL (12.0-15.5); LYMPHOCYTES % (AUTO) 11.8 % (13-45); MEAN CORPUSCULAR HEMOGLOBIN 27.5 pg (27.0-33.4); MEAN CORPUSCULAR VOLUME 81 fl (80-97); MONOCYTES % (AUTO) 5.9 % (3-13); PLATELET COUNT 507 10^3/uL (150-450); RED BLOOD COUNT 5.98 10^6/uL (3.72-5.28); RED CELL DISTRIBUTION WIDTH 14.5 % (11.5-14.0); SEGMENTED NEUTROPHILS % (AUTO) 81.2 % (42-78); TOTAL CELLS COUNTED % (AUTO) 100 %
[2019-01-05 20:48] LABS: ALBUMIN 4.5 g/dL (3.5-5.0); ALKALINE PHOSPHATASE 99 U/L (38-126); ANION GAP 16 (5-19); ASPARTATE AMINO TRANSFERASE 20 U/L (14-36); BILIRUBIN,DIRECT 0.3 mg/dL (0.0-0.4); BILIRUBIN,TOTAL 0.9 mg/dL (0.2-1.3); BLOOD UREA NITROGEN 18 mg/dL (7-20); CALCIUM 10.3 mg/dL (8.4-10.2); CARBON DIOXIDE 31 mmol/L (22-30); CHLORIDE 92 mmol/L (98-107); GLUCOSE 159 mg/dL (75-110); INTERNATIONAL RATION (INR) 1.12; POTASSIUM 3.8 mmol/L (3.6-5.0); PROTHROMBIN TIME 14.5 SEC (11.4-15.4); TOTAL PROTEIN 8.1 g/dL (6.3-8.2)
[2019-01-05] MEDS ORDERED: DEXAMETHASONE SOD PHOS INJ 10 MG/1 ML VIAL IV ONE ×2 (20:50→21:05)
[2019-01-05] MEDS ORDERED: LEVETIRACETAM INJ/PF 500 MG/5 ML SDV IV ONE (20:51)
--- NOTE | 2019-01-05 21:12 | RADIOLOGY REPORT (SQ) ---
EXAM DESCRIPTION: RadLex: CT HEAD WITHOUT IV CONTRAST CLINICAL HISTORY: 58 years Female; ams Melanoma, based on PET/CT report from 06/27/2018. TECHNIQUE: Noncontrast CT head. All CT scans at this facility use dose modulation, iterative reconstruction, and/or weight based dosing when appropriate to reduce radiation dose to as low as reasonably achievable. COMPARISON: No previous brain imaging. FINDINGS: There is a large mass in the left frontal lobe approximately 5 cm diameter, with central hypodensity and peripheral slight hyperdensity. There is surrounding vasogenic edema with significant sulcal effacement of the left hemisphere. 15 mm midline shift to the right with subfalcine herniation. Left lateral ventricle is mostly effaced. There is also moderate sulcal effacement of the right hemisphere. No hyperdense acute hemorrhage. Visualized portions of paranasal sinuses and mastoids are clear. Visualized portions of the calvarium are within normal limits. IMPRESSION: 1. Large left frontal lobe mass, at least 5 cm, with significant mass effect, including 15 mm midline shift to the right. Differential diagnosis includes neoplasm versus abscess. Given the history of melanoma, this is likely metastatic disease. MRI of the brain with and without contrast is recommended.
--- NOTE | 2019-01-05 21:19 | RADIOLOGY REPORT (SQ) ---
EXAM DESCRIPTION: XR CHEST 1 VIEW COMPLETED DATE/TME: 01/05/2019 19:36 CLINICAL HISTORY: 58 years, Female, ams COMPARISON: Prior study from 10/08/2018 NUMBER OF VIEWS: One TECHNIQUE: Single frontal view of the chest was obtained portably LIMITATIONS: None. FINDINGS: Cardiac and mediastinal contours are stable. Lungs are clear. No pleural effusion or pneumothorax. Retained barium contrast material is noted about the lateral aspects of the upper abdomen. IMPRESSION: No acute disease. copyright 2010 [employer]- All Rights Reserved
[2019-01-05 21:42] LABS: APPEARANCE,URINE CLEAR; BILIRUBIN,URINE NEGATIVE (NEGATIVE); COLOR,URINE YELLOW; GLUCOSE, URINE NEGATIVE (NEGATIVE); KETONES,URINE TRACE mg/dL (NEGATIVE); LEUKOCYTE ESTERASE,URINE NEGATIVE (NEGATIVE); NITRITE,URINE NEGATIVE (NEGATIVE); PROTEIN,URINE NEGATIVE (NEGATIVE); URINE SPECIFIC GRAVITY 1.027; UROBILINOGEN,URINE NEGATIVE mg/dL (<2.0)
[2019-01-05 21:56] LABS: URINE AMPHETAMINES SCREEN NEGATIVE; URINE BARBITURATES SCREEN NEGATIVE; URINE BENZODIAZEPINES SCREEN NEGATIVE; URINE COCAINE SCREEN NEGATIVE; URINE MARIJUANA (THC) SCREEN NEGATIVE; URINE METHADONE SCREEN NEGATIVE; URINE PHENCYCLIDINE SCREEN NEGATIVE
[2019-01-05 23:05] VITALS: BP 141/95
--- NOTE | 2019-01-06 09:13 | EKG REPORT ---
SEVERITY:- ABNORMAL ECG - SINUS RHYTHM PROBABLE LEFT ATRIAL ABNORMALITY REPOL ABNRM SUGGESTS ISCHEMIA, ANT-LAT LEADS : Confirmed by: Raegan Briggs 06-Jan-2019 09:12:57
== END 2019-01-05 23:37 | disposition short-term general hospital (02) ==
LOC: ER 19:11
DX: G93.9 Disorder of brain, unspecified (principal); R41.82 Altered mental status, unspecified
CPT/HCPCS: 93005; 99291; 96361; 96375; 96365; 36415; 87040; 85025; 85610; 80053; 81001; 80307; 71045; 70450; 93010; J7120; J1953; J1100